=== PATIENT | female | born 1970 | race Caucasian/White ===

== ENCOUNTER → 2020-08-27 09:37 | Outpatient (BNVA) | payer MEDICARE, MEDICAID, SELFPAY | PROVIDERS: PCP Family Medicine; Visit Provider Nurse Practitioner | DX: Z13.89 Encounter for screening for other disorder (principal) | CPT/HCPCS: 99202 ==

== ENCOUNTER → 2020-10-26 09:35 | Outpatient (BNVA) | payer MEDICARE, MEDICAID, SELFPAY | PROVIDERS: PCP Family Medicine; Visit Provider Nurse Practitioner | DX: Z13.89 Encounter for screening for other disorder (principal) | CPT/HCPCS: Q3014 ==

== ENCOUNTER 2020-11-18 11:38 | Outpatient (REF) | payer MEDICARE, MEDICAID, SELFPAY ==
--- NOTE | ~2020-11-18 | MM_ITS ---
EXAMINATION: MM SCREENING DIGITAL BREAST TOMOSYNTHESIS, BILATERAL CLINICAL INFORMATION: Screening. Asymptomatic. The lifetime risk of breast cancer based on the Tyrer-Cuzick Model is 7%. COMPARISON: Mammography: 04/04/2019, outside mammography 01/11/2017, 11/13/2015 ([facility]). TECHNIQUE: Digital breast tomosynthesis is performed in both the craniocaudal and mediolateral oblique views along with computer-aided detection (CAD). Synthesized 2D images are generated from the tomosynthesis. Additional bilateral exaggerated CC views and additional bilateral MLO views are provided. FINDINGS: There are scattered areas of fibroglandular density (ACR BI-RADS breast composition Category b). Breast tissue composition borders on predominantly fatty. Background fibroglandular and stromal densities are stable. There is no interval mass or architectural abnormality or developing density. No abnormal calcifications. The axilla and skin contours are unremarkable. No significant changes. MM/MM tomosynthesis screening BI IMPRESSION: No mammographic evidence of malignancy. ASSESSMENT: BI-RADS 1: Negative RECOMMENDATION: Routine annual mammography screening. This patient's information was entered into a reminder system with a target due date for their next mammogram.
== END 2020-11-18 11:39 | disposition home or self-care (01) ==
LOC: HO.MAMMO 11:38
PROVIDERS: Visit Provider Family Medicine
DX: Z12.31 Encounter for screening mammogram for malignant neoplasm of breast (principal)
CPT/HCPCS: 77063; 77067

== ENCOUNTER → 2021-04-20 10:47 | Outpatient (BNVA) | payer MEDICARE, MEDICAID, SELFPAY | PROVIDERS: PCP Family Medicine; Referring Provider Family Medicine; Visit Provider Nurse Practitioner Family | DX: G47.9 Sleep disorder, unspecified (principal); J35.1 Hypertrophy of tonsils; R06.83 Snoring; R06.00 Dyspnea, unspecified; J30.2 Other seasonal allergic rhinitis; Z79.899 Other long term (current) drug therapy | CPT/HCPCS: Q3014 ==

== ENCOUNTER 2022-06-10 10:56 | Outpatient (REF) | payer MEDICARE, MEDICAID, SELFPAY ==
--- NOTE | 2022-06-10 | PFT_ITS ---
INDICATION: Wheezing. SPIROMETRY: FEV1 to FVC of 87% with an FEV1 of 2.53 L, which is 92% predicted, an FVC of 2.9 L, which is 83% predicted. No significant response to bronchodilators noted. Maximum voluntary ventilation 92% predicted. LUNG VOLUMES: Total lung capacity 85% predicted with a residual volume of 65% predicted, and an expiratory reserve volume of 32% predicted. DIFFUSION CAPACITY: DLCO 82% predicted. COMPARISONS: None. INTERPRETATION: No obstructive nor restrictive ventilatory defects identified. No significant response to bronchodilators noted. Normal maximum voluntary ventilation. No evidence of small airways disease. Lung volumes are low normal but likely secondary to elevated BMI. There is also a decrease in the expiratory reserve volume secondary to an elevated BMI. Diffusion capacity is within normal limits. If asthma is in the differential, methacholine challenge may be helpful in assessing for hyper-reactive airways disease and a diagnosis of asthma. Clinical correlation is warranted. MD KAMRAN Dorsey/VINICIUS / [phone]
== END 2022-06-10 10:57 | disposition home or self-care (01) ==
LOC: HO.RESP 10:56
PROVIDERS: PCP Family Medicine; Visit Provider Family Medicine
DX: R06.2 Wheezing (principal)
CPT/HCPCS: 94060; 94727; 94729

== ENCOUNTER 2022-06-14 11:02 | Outpatient (REF) | payer MEDICARE, MEDICAID, SELFPAY ==
--- NOTE | ~2022-06-14 | MM_ITS ---
EXAMINATION: MM SCREENING DIGITAL BREAST TOMOSYNTHESIS, BILATERAL CLINICAL INFORMATION: Screening. Asymptomatic. The lifetime risk of breast cancer based on the Tyrer-Cuzick Model is 6.8%. COMPARISON: Mammography: November 18, 2020 and studies dating back to May 28, 2014 TECHNIQUE: Digital breast tomosynthesis is performed in both the craniocaudal and mediolateral oblique views along with computer-aided detection (CAD). Synthesized 2D images are generated from the tomosynthesis. FINDINGS: The breasts are almost entirely fatty (ACR BI-RADS breast composition Category a). There are no significant masses, abnormal calcifications, or other abnormalities. MM/MM tomosynthesis screening BI IMPRESSION: No significant changes from prior exam. ASSESSMENT: BI-RADS 1: Negative RECOMMENDATION: Routine annual mammography screening. This patient's information was entered into a reminder system with a target due date for their next mammogram.
== END 2022-06-14 11:03 | disposition home or self-care (01) ==
LOC: HO.MAMMO 11:02
PROVIDERS: PCP Family Medicine; Visit Provider Family Medicine
DX: Z12.31 Encounter for screening mammogram for malignant neoplasm of breast (principal)
CPT/HCPCS: 77063; 77067

== ENCOUNTER 2022-09-29 11:52 | Outpatient (REF) | payer MEDICARE, MEDICAID, SELFPAY ==
[2022-09-29 12:29] LABS: MANUAL DIFF FLAG NO
[2022-09-29 13:32] LABS: Basophils Absolute Auto 0.1 X10*3/uL (0.0-0.2); Eosinophils Absolute Auto 0.2 X10*3/uL (0.0-0.4); Hematocrit 40.9 % (37.0-47.0); Hemoglobin 13.2 g/dl (12.0-16.0); Imm Gran Abs Auto 0.01 X10*3/uL (0.00-0.03); Imm Gran Pct Auto 0.1 % (0.0-0.4); Lymphocytes Absolute Auto 2.5 X10*3/uL (1.2-4.9); Lymphocytes Percent Auto 31.1 % (20-40); Mean Corpuscular HGB Conc 32.3 g/dl (31.0-35.0); Mean Corpuscular Hemoglobin 34.1 pg (27.0-33.0); Mean Corpuscular Volume 105.7 fL (80.0-98.0); Mean Platelet Volume 11.3 fL (9.4-12.3); Monocytes Absolute Auto 0.5 X10*3/uL (0.1-1.2); Monocytes Percent Auto 6.6 % (2-11); Neutrophils Absolute Auto 4.8 x10*3/uL (2.0-8.3); Neutrophils Percent Auto 59.2 % (45-73); Platelet Count 260 X10*3/uL (160-400); Red Blood Count 3.87 X10*6/uL (4.20-5.50); Red Cell Distribution Width 12.9 % (11.0-16.0); White Blood Count 8.2 X10*3/uL (4.8-10.8)
[2022-09-29 13:57] LABS: Alanine Aminotransferase 18 U/L (0-31); Alkaline Phosphatase 77 U/L (39-117); Anion Gap 16 (12-20); Aspartate Amino Transferase 18 U/L (5-31); Bilirubin Total 0.6 mg/dL (0.0-1.0); Blood Urea Nitrogen 12 mg/dL (9-16); Calcium 9.1 mg/dL (8.4-10.2); Carbon Dioxide 21 mmol/L (22-29); Chloride 110 mmol/L (96-108); Estimated Glomerular Filt Rate > 60; Glucose Random 92 mg/dL (60-115); Potassium 4.5 mmol/L (3.3-5.1); Sodium 142 mmol/L (135-145); Total Protein 6.8 g/dL (6.5-8.0)
== END 2022-09-29 11:53 | disposition home or self-care (01) ==
LOC: HO.LAB 11:52
PROVIDERS: PCP Family Medicine; Referring Provider Family Medicine; Visit Provider Nurse Practitioner
DX: Z01.818 Encounter for other preprocedural examination (principal); K91.5 Postcholecystectomy syndrome
CPT/HCPCS: 36415; 80053; 85025; 99212

== ENCOUNTER 2022-11-04 11:13 | Day surgery (SDC) | payer MEDICARE, MEDICAID, SELFPAY ==
[2022-11-02 15:15] VITALS: BMI 65.2
--- NOTE | 2022-11-03 12:23 | P.CONAN_ITS ---
Documented by User: Lissy Curtis NP 11/03/22 12:24 HPI - Anesthesia Eval Consult details Narrative: 52yo F for Colonoscopy PMFSH Active Problems Active Problems: All Active Problems (Updated 09/29/22 @ 12:11 by HAKEEM Bains) Pre-op examination (Acute) Excessive daytime sleepiness (Acute) Sleep disorder (Acute) Nocturia (Acute) Snoring (Acute) Post-cholecystectomy syndrome (Acute) Colon cancer screening (Acute) Past Medical History Medical History Anemia Depression GERD (gastroesophageal reflux disease) History of anxiety History of COVID-19 Hx of bipolar disorder Psoriatic arthritis Family History Family History Mother Bladder cancer Heart problem Rheumatoid arthritis Father Arthritis Surgical History Surgical History Hx of hand surgery Social History Social History Household Members: Children Household Members Other:: daughter Alcohol intake: current Alcohol intake frequency: does not drink Patient Tobacco Use Status: Never used Tobacco Advance Directives: No Advance Directives Information Provided: Yes Current occupational status: disabled Meds Allergies Allergy/AdvReac Type Severity Reaction Status Date / Time SEASONAL ALLERGIES Allergy Intermediate SINUSITIS Uncoded 04/20/21 11:01 Home Medications Medication Instructions Recorded Confirmed Last Taken Type acetaminophen 650 mg 650 mg PO Q12H 08/27/20 11/02/22 Unknown History tablet,extended release (Arthritis Pain Relief (acetaminophen) ER) betamethasone dipropionate 0.05 % 1 appl topical DAILY 08/27/20 11/02/22 Unknown History topical ointment bupropion HCl 150 mg 24 hr tablet, 150 mg PO QAM 08/27/20 11/02/22 Unknown Hist ory extended release celecoxib 200 mg capsule 200 mg PO DAILY 08/27/20 11/02/22 Unknown History cetirizine 10 mg capsule (All Day 10 mg PO DAILY PRN Itching 08/27/20 11/02/22 Unknown History Allergy (cetirizine)) docusate sodium 100 mg capsule 100 mg PO DAILY 08/27/20 11/02/22 Unknown History (Colace) etanercept 50 mg/mL (1 mL) 50 mg subcut QWEEK 08/27/20 11/02/22 Unknown History subcutaneous syringe (Enbrel) ferrous sulfate 325 mg (65 mg 325 mg PO BID 08/27/20 11/02/22 Unknown History iron) tablet fluticasone furoate 50 1 inh inhalation DAILY 08/27/20 11/02/22 Unknown History mcg/actuation blister powder for inhalation folic acid 1 mg tablet 1 mg PO DAILY 08/27/20 11/02/22 Unknown History mecobalamin (vitamin B12) 1,000 1,000 mcg PO DAILY 08/27/20 11/02/22 Unknown History mcg chewable tablet melatonin 5 mg capsule 5 mg PO BEDTIME 08/27/20 11/02/22 Unknown History methotrexate sodium 2.5 mg tablet 17.5 mg PO QWEEK 08/27/20 11/02/22 Unknown History montelukast 10 mg tablet 10 mg PO DAILY 08/27/20 11/02/22 Unknown History nystatin 100,000 unit/gram topical 1 appl topical DAILY 08/27/20 11/02/22 Unknown History cream albuterol sulfate 90 mcg/actuation 2 puff inhalation Q4-6H PRN 10/06/20 11/02/22 Unknown History aerosol inhaler (Ventolin HFA) Shortness Of Breath oxybutynin chloride 15 mg 15 mg PO DAILY 09/29/22 Unknown History tablet,extended release 24 hr oxybutynin chloride 5 mg tablet 15 mg PO DAILY 09/29/22 11/02/22 Unknown History topiramate 50 mg capsule 100 mg PO DAILY 09/29/22 11/02/22 Unknown History sprinkle,extended release 24 hr venlafaxine 100 mg tablet 100 mg PO BID 09/29/22 11/02/22 Unknown History Exam Exam Date and Time: November 03, 2022 1223 Height,Weight and Vital Signs: Height 5 ft 4 in Weight 172.365 kg Pertinent Lab Results Pertinent Lab Results: Laboratory Tests 09/29/22 09/29/22 12:28 12:28 WBC 8.2 Hgb 13.2 Hct 40.9 Plt Count 260 Sodium 142 Potassium 4.5 Chloride 110 H Carbon Dioxide 21 L BUN 12 Creatinine 0.79 Assessment and Plan Assessment Anesthesia Assessment: Chart Reviewed Documented by User: Jaclyn Webber MD 11/04/22 12:59 PMFSH Past Medical History Medical History Anemia Depression GERD (gastroesophageal reflux disease) History of anxiety History of COVID-19 Hx of bipolar disorder Psoriatic arthritis Family History Family History Mother Bladder cancer Heart problem Rheumatoid arthritis Father Arthritis Family history of problems with anesthesia: No Surgical History Surgical History Hx of hand surgery History of Problems with Anesthesia: No Social History Social History Household Members: Children Household Members Other:: daughter Alcohol intake: current Alcohol intake frequency: does not drink Patient Tobacco Use Status: Never used Tobacco Advance Directives: No Advance Directives Information Provided: Yes Current occupational status: disabled Meds Allergies Allergy/AdvReac Type Severity Reaction Status Date / Time SEASONAL ALLERGIES Allergy Intermediate SINUSITIS Uncoded 04/20/21 11:01 Home Medications Medication Instructions Recorded Confirmed Last Taken Type acetaminophen 650 mg 650 mg PO Q12H 08/27/20 11/02/22 Unknown History tablet,extended release (Arthritis Pain Relief (acetaminophen) ER) betamethasone dipropionate 0.05 % 1 appl topical DAILY 08/27/20 11/02/22 Unknown History topical ointment bupropion HCl 150 mg 24 hr tablet, 150 mg PO QAM 08/27/20 11/02/22 Unknown History extended release celecoxib 200 mg capsule 200 mg PO DAILY 08/27/20 11/02/22 Unknown History cetirizine 10 mg capsule (All Day 10 mg PO DAILY PRN Itching 08/27/20 11/02/22 Unknown History Allergy (cetirizine)) docusate sodium 100 mg capsule 100 mg PO DAILY 08/27/20 11/02/22 Unknown History (Colace) etanercept 50 mg/mL (1 mL) 50 mg subcut QWEEK 08/27/20 11/02/22 Unknown History subcutaneous syringe (Enbrel) ferrous sulfate 325 mg (65 mg 325 mg PO BID 08/27/20 11/02/22 Unknown History iron) tablet fluticasone furoate 50 1 inh inhalation DAILY 08/27/20 11/02/22 Unknown History mcg/actuation blister powder for inhalation folic acid 1 mg tablet 1 mg PO DAILY 08/27/20 11/02/22 Unknown History mecobalamin (vitamin B12) 1,000 1,000 mcg PO DAILY 08/27/20 11/02/22 Unknown History mcg chewable tablet melatonin 5 mg capsule 5 mg PO BEDTIME 08/27/20 11/02/22 Unknown History methotrexate sodium 2.5 mg tablet 17.5 mg PO QWEEK 08/27/20 11/02/22 Unknown History montelukast 10 mg tablet 10 mg PO DAILY 08/27/20 11/02/22 Unknown History nystatin 100,000 unit/gram topical 1 appl topical DAILY 08/27/20 11/02/22 Unknown History cream albuterol sulfate 90 mcg/actuation 2 puff inhalation Q4-6H PRN 10/06/20 11/02/22 Unknown History aerosol inhaler (Ventolin HFA) Shortness Of Breath oxybutynin chloride 15 mg 15 mg PO DAILY 09/29/22 Unknown History tablet,extended release 24 hr oxybutynin chloride 5 mg tablet 15 mg PO DAILY 09/29/22 11/02/22 Unknown History topiramate 50 mg capsule 100 mg PO DAILY 09/29/22 11/02/22 Unknown History sprinkle,extended release 24 hr venlafaxine 100 mg tablet 100 mg PO BID 09/29/22 11/02/22 Unknown History Exam Airway Mallampati Class: II TM Dist: >3cm Neck ROM: Full Heart: rrr Lungs: cta Assessment and Plan Assessment Anesthesia Assessment: Anesthesia Plan Discussed Final Anesthetic Review Family History of Problems with Anesthesia: No History of Problems with Anesthesia: No NPO: Yes ASA Class: III Final Preanesthetic Review: No Changes in Pt Med Stat, Meds/Allgs Chart Reviewed and Consent Obtained/Reviewed Patient Risk: Intermediate Procedure Risk: Intermediate Anesthetic Plan Anesthetic Plan: MAC: Disposition: Standard PACU
[2022-11-04 11:55] VITALS: BP 111/68; PULSE 81; RESP 20; TEMP 36.6; O2SAT 97
--- NOTE | 2022-11-04 12:15 | P.HPSUR_ITS ---
Pre-Procedural Eval Section A Date of Service: 11/04/22 The patient is an INPATIENT: No The History & Physical has been completed within 30 days and I have reviewed it.: No Section B Chief Complaint: screening Relevant Social History: None Present Medications: see Short Stay Collaborative assessment Medical History: Significant History (Anemia Depression GERD (gastroesophageal r eflux disease) History of anxiety History of COVID-19 Hx of bipolar disorder Psoriatic arthritis) History of Previous Operations: Relevant previous surgery/procedure and date(s) (History of hand surgery) Allergies: Allergies Allergy/AdvReac Type Severity Reaction Status Date / Time SEASONAL ALLERGIES Allergy Intermediate SINUSITIS Uncoded 04/20/21 11:01 Review of Systems Sugical H&P ROS: Negative: Constitution, Cardiovascular, Respiratory and Gastrointestinal Exam Surgical H&P Exam: Normal: Heart, Normal: Lungs, Normal: Extremities and Normal: Abdomen Plan Diagnosis/Plan: Unchanged I have reviewed the history and physical and performed a pertinent physical examination on my patient. No changes have occurred unless specified. Time Spent With Patient Time: Total time managing care of this patient today ____ minutes.
--- NOTE | 2022-11-04 13:32 | W.PM.OPN ---
Operative Note Operative Note Date of Service: 11/04/22 Narrative: COLONOSCOPY TILL CECUM WITH BIOPSIES Pre-op diagnosis: Colon cancer screening Post-op diagnosis:? Colon polyps, diverticulosis, hemorrhoids Endoscopist:? Oxana Aguiar MD Anesthesia:?MAC Consent: Indications for the procedure and potential complications of bleeding, perforation, reaction to medications and missed diagnosis were discussed with the patient and informed consent was obtained. Instrument: Olympus PCF H 190 L variable stiffness pediatric colonoscope Monitoring: Vital signs and clinical assessment, intermittent blood pressure monitoring, continuous EKG monitoring, Pulse oximetry and Carbon Dioxide monitoring were done throughout the procedure. Please see anesthesia flowsheet. Colon withdrawl time was 27 minutes. Procedure: The patient was placed in the left lateral decubitis position and pre-procedure medications were administered. After a digital rectal examination of the ano-rectum, the video colonoscope was inserted into the rectum and advanced through the colon to the ICV. It was not possible to advance further due to looping of the colonoscope and sub-optimal prep. The colonoscope was slowly withdrawn in a retrograde panoramic fashion and the colon mucosa was carefully examined including a retroflexed view of the rectum. Findings and interventions are described below. Procedure Difficulty: Colon was long and tortuous and there was recurrent loop formation. LLQ pressure applied to intubate the cecum without success Findings: Terminal Ileum: Not evaluated Cecum: Normal Ascending Colon: A 5-6 mm sessile polyp in the proximal AC - removed with a cold bx Transverse Colon: Normal Descending Colon: A 5-6 mm sessile polyp - removed with a cold bx Sigmoid Colon: Moderate diverticulosis Rectum: Normal Ano-rectum: Moderate internal hemorrhoids Colon preparation: Fair despite copious irrigation and poor in the left colon due to semi-solid stools and undigested vegetable matter which could not be suctioned Impression and Post Procedure Diagnosis: Colonoscopy Findings: Two small polyps removed Moderate diverticulosis seen in the sigmoid colon Moderate hemorrhoids on retroflexed exam. Fair despite copious irrigation and poor in the left colon due to semi-solid stools and undigested vegetable matter which could not be suctioned Plan: Await pathology results Patient has an appointment on 11/18/22 in the [facility] with Melanie Schofield NP. Repeat Colonoscopy interval based on path results - in 1-2 years if polyps are adenomatous and due to fair prep (Dulcolax 2 tablets daily starting 3 days before colonoscopy and adult colonoscope for future colonoscopies). Above findings were reviewed with the patient and colon polyps and diverticulosis handouts were given in the discharge area
[2022-11-04 14:30] VITALS: BP 149/94; PULSE 94; RESP 16; TEMP 37; O2SAT 97
[2022-11-04 14:45] VITALS: BP 141/72; PULSE 82; RESP 18; TEMP 36.9; O2SAT 100
== END 2022-11-04 15:30 | disposition home or self-care (01) ==
PROVIDERS: PCP Family Medicine; Visit Provider Internal Medicine Gastroenterology
PROC: 0DJD8ZZ Inspection of Lower Intestinal Tract, Via Natural or Artificial Opening Endoscopic (ICD-10-PCS; CPT 45378; principal; 2022-11-04 13:00)
DX: Z12.11 Encounter for screening for malignant neoplasm of colon (principal); D12.2 Benign neoplasm of ascending colon; D12.4 Benign neoplasm of descending colon; K57.30 Diverticulosis of large intestine without perforation or abscess without bleeding; K56.2 Volvulus; K64.8 Other hemorrhoids; K91.5 Postcholecystectomy syndrome
CPT/HCPCS: 45380; 88305

== ENCOUNTER → 2022-11-18 10:14 | Outpatient (BNVA) | payer MEDICARE, MEDICAID, SELFPAY | PROVIDERS: PCP Family Medicine; Referring Provider Family Medicine; Visit Provider Nurse Practitioner | DX: Z12.11 Encounter for screening for malignant neoplasm of colon (principal); K91.5 Postcholecystectomy syndrome; D75.89 Other specified diseases of blood and blood-forming organs; D12.6 Benign neoplasm of colon, unspecified | CPT/HCPCS: 99212 ==

== ENCOUNTER 2023-05-23 10:32 | Outpatient (AMB) | payer MEDICARE, MEDICAID, SELFPAY ==
--- NOTE | 2023-05-23 10:39 | MHC.OFFVIS ---
Intake Vital Signs 05/23/23 10:44 Height 5 ft 4 in Weight 374 lb 12.573 oz BMI 64.3 BP 143/82 H Blood Pressure Location Rt brachial Position Sitting Pulse 91 Intake Visit Reasons: 6 mnth follow up Intake Note: Patient presents to in office visit today in 6 months follow up of GERD. CC: Patient reports waking up hoarse every day for the past two weeks and having to clear up her throat often. 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 She is agreeable to repeating the procedure in 2 years. The results were explained and the patient is agreeable to the follow-up interval as stated. The bowel pattern has returned to normal. Education was provided to tell any 1st degree relatives about their findings to be sure that they are screened by age 45. Educated that they will be put on a recall list when it is time for their repeat scope but should they move out of state or away from the hospital they will need to remember along with their primary to repeat the procedure in a timely fashion to avoid any adverse complications. She did not clear for the procedure, she says she did not do the prep correctly and SHE DID NOT STOP HER CHOLESTYRAMINE, so we will stop this 4 days prior to the next procedure. She continues to do well on her cholestyramine qd - she only uses more if she is going to eat out. she is quite happy with this. She is better able to manage her daily life and be more active and even lost 6 lbs! Her macrocytosis is likely related to her methotrexate since in the past she has had repeatedly High vitamin B12 levels and does not drink alcohol. This is being followed by her primary care provider. ROV 6 mos. (2) Post-cholecystectomy syndrome: Code(s): K91.5 - Postcholecystectomy syndrome (3) Macrocytosis: Comment: Likely related to methotrexate as she has had repeatedly High B12 levels Code(s): D75.89 - Other specified diseases of blood and blood-forming organs (4) Tubular adenoma of colon: Comment: 2022 scope= 2 TA is repeat in 2 years Code(s): D12.6 - Benign neoplasm of colon, unspecified Medications: Refilled omeprazole 20 mg PO BID 60 c aps 6RF cholestyramine ( sugar) 4 gram 4 grams PO BID 37 8 grams 6RF K91.5 - Postcholec ystectomy syndrome Discontinued bisacodyl Disco ntinued Reason: D octor's Order 10 mg (2 x 5 mg) P O BEDTIME 4 tabs 0 RF Z12.11 - Encounter for screening for malignant neoplas m of colon TODAYS VISIT She is doing well on her cholestyramine, but had some diarrhea just this week (but this is Thanksgiving week so diet could be to blame). She is on o2o 20 mg twice a day and is not experiencing subjective GERD. She questions if she needs to change the PPI because she has been on omeprazole for quite some time. She is on 20 mg twice a day currently. I think will give her a trial of Carafate as her sister had a similar problem a did well Mylanta. We want to avoid Mylanta because of the possible diarrheal side effect so Carafate is a better choice. If this helps then will think that it is silent GERD irritating laryngeal tissues. If it does not help then she may need to pull or different cause such as chronic sinusitis etc.. She says she is having more trouble with allergies and sinuses this year for some reason. She is not having any fevers chills out right sore throat ear pain or trouble swallowing. ROV in June [facility] Medical History (Updated 05/23/23 @ 11:11 by HAKEEM Bains) History of COVID-19 History of anxiety Hx of bipolar disorder Depression Anemia GERD (gastroesophageal reflux disease) Psoriatic arthritis Surgical History Hx of hand surgery Family History Mother Bladder cancer Heart problem Rheumatoid arthritis Father Arthritis Social History Household Members: Children Household Members Other:: daughter Alcohol intake: current Alcohol intake frequency: does not drink Patient Tobacco Use Status: Never used Tobacco Current occupational status: disabled Review of Systems Const Denies fatigue, Denies fever(s), Denies night sweats, Denies poor appetite and Denies weight loss ENT Reports Normal hearing present, Denies dental pain, Denies dysphagia, Denies hearing loss, Denies mouth pain, Reports odynophagia, Denies throat swelling, Denies tongue swelling and Reports other (Dentition adequate) Card Reports no additional complaints Resp Reports no additional complaints GI Denies abdominal pain, Denies melena, Denies bloating, Denies hematochezia, Denies constipation, Denies GI cramping, Denies dysphagia, Denies excessive flatus, Denies early satiety, Reports heartburn, Reports diarrhea, Denies nausea, Reports odynophagia, Denies vomiting and Denies hematemesis Skin/Breast Denies pruritus, Denies lesions, Denies rash and Denies jaundice Neuro Reports Normal hearing present and Denies Abnormal speech present Endo Denies fatigue Aller/Immun Denies throat swelling and Denies tongue swelling Physical Exam Vital Signs: Last Vital Signs Pulse 91 05/23/23 10:44 BP 143/82 H 05/23/23 10:44 BMI result Body Mass Index 64.3 Const General: cooperative, no acute distress, well developed and well groomed Nutritional Appearance: well nourished and obese Orientation/consciousness: oriented to person, oriented to place and oriented to time Limitations: No language barrier HEENT Head: Yes normocephalic and Yes atraumatic Eyes General: appearance normal, both eyes and all related structures Pupils: Equal, round and reactive pupils present Neck Neck: Yes normal visual inspection and Yes no lymphadenopathy Thyroid: Thyroid normal Resp Effort & Inspection: normal respiratory effort and able to speak in complete sentences Auscultation: clear to auscultation bilaterally Cardio Rate: regular rate Rhythm: regular rhythm Heart sounds: Normal, physiologic split S2 sound present Peripheral pulses: radial pulses present and posterior tibial pulses present GI Inspection: No distended, Yes Abdominal panniculus present and Yes obesity Palpation (GI): Soft to palpation, nontender, no guarding, not rigid and No hepatosplenomegaly present Percussion: Yes normal to percussion Auscultation: normal bowel sounds Rectal Exam - Female: deferred Skin General skin exam: no rashes or lesions noted, turgor normal, skin not dry, no jaundice, No spider nevi and no striae Rashes: no rashes Nails: normal Neuro General: oriented to person, oriented to place and oriented to time Cranial nerves: Yes Equal, round and reactive pupils present and Yes Normal hearing present Speech: No Abnormal speech present Extrem General: Yes normal to inspection, No clubbing, No cyanosis and No edema Psych Appearance: grossly normal and well kempt Mental Status: mental status grossly normal Speech and movement: Normal speech and movement present Affect: normal affect Attitude: cooperative Thought process: Normal thought process present and not confabulating Thought content: Normal thought content present Insight: Fair insight present (Psych) Judgement: Fair judgement present (Psych) Assessment & Plan Assessment & Plan (1) Post-cholecystectomy syndrome: Code(s): K91.5 - Postcholecystectomy syndrome (2) Tubular adenoma of colon: Comment: 2022 scope= 2 TA is repeat in 2 years NEEDS TO STOP CHOLESTYRAMINE BEFORE NEXT PROCEDURE Code(s): D12.6 - Benign neoplasm of colon, unspecified (3) GERD (gastroesophageal reflux disease): Code(s): K21.9 - Gastro-esophageal reflux disease without esophagitis Plan She is doing well on her cholestyramine, but had some diarrhea just this week (but this is Thanksgiving week so diet could be to blame). She is on o2o 20 mg twice a day and is not experiencing subjective GERD. She questions if she needs to change the PPI because she has been on omeprazole for quite some time. She is on 20 mg twice a day currently. I think will give her a trial of Carafate as her sister had a similar problem a did well Mylanta. We want to avoid Mylanta because of the possible diarrheal side effect so Carafate is a better choice. If this helps then will think that it is silent GERD irritating laryngeal tissues. If it does not help then she may need to pull or different cause such as chronic sinusitis etc.. She says she is having more trouble with allergies and sinuses this year for some reason. She is not having any fevers chills out right sore throat ear pain or trouble swallowing. ROV in June Medications: New sucralfate (Carafate) 10 mL PO DAILY 400 mL 1RF J39.2 - Other diseases of pharynx, K21.9 - Gastro-esophageal reflux disease without esophagitis sucralfate (Carafate) 10 mL PO DAILY 400 mL 1RF J39.2 - Other diseases of pharynx, K21.9 - Gastro-esophageal reflux disease without esophagitis Changed From cholestyramine (with sugar) 4 gram 4 grams PO BID 378 grams 6RF K91.5 - Postcholecystectomy syndrome To cholestyramine (with sugar) 4 gram 4 grams PO BID 378 grams 6RF K91.5 - Postcholecystectomy syndrome Refilled omeprazole 20 mg PO BID 60 caps 6RF Coding Level of Care Code Est Pt Level 3 (93238) Diagnoses Post-cholecystectomy syndrome K91.5 Tubular adenoma of colon D12.6 GERD (gastroesophageal reflux disease) K21.9
[2023-05-23 10:44] VITALS: BP 143/82; PULSE 91; BMI 64.3
== END 2023-05-23 11:41 | disposition home or self-care (01) ==
PROVIDERS: Visit Provider Nurse Practitioner
DX: K91.5 Postcholecystectomy syndrome (principal); D12.6 Benign neoplasm of colon, unspecified; K21.9 Gastro-esophageal reflux disease without esophagitis
CPT/HCPCS: 99213

== ENCOUNTER → 2023-05-23 10:32 | Outpatient (BNVA) | payer MEDICARE, SELFPAY | PROVIDERS: Visit Provider Nurse Practitioner | DX: K21.9 Gastro-esophageal reflux disease without esophagitis (principal); K91.5 Postcholecystectomy syndrome; D12.6 Benign neoplasm of colon, unspecified | CPT/HCPCS: 99212 ==

== ENCOUNTER 2023-12-12 12:01 | Outpatient (REF) | payer MEDICARE, MEDICAID, SELFPAY | END 2023-12-12 12:02 | disposition home or self-care (01) | LOC: HO.MAMMO 12:01 | PROVIDERS: PCP Family Medicine; Visit Provider Family Medicine | DX: Z12.31 Encounter for screening mammogram for malignant neoplasm of breast (principal) | CPT/HCPCS: 77063; 77067 ==

== ENCOUNTER → 2023-12-12 12:15 | Outpatient (BNV) | payer MEDICARE, MEDICAID, SELFPAY | PROVIDERS: PCP Family Medicine; Visit Provider Radiology Diagnostic Radiology | DX: Z12.31 Encounter for screening mammogram for malignant neoplasm of breast (principal) | CPT/HCPCS: 77063; 77067 ==

== ENCOUNTER 2023-12-26 11:21 | Outpatient (AMB) | payer MEDICARE, MEDICAID, SELFPAY ==
[2023-12-26 11:33] VITALS: BP 143/69; PULSE 70; BMI 65.2
--- NOTE | 2023-12-26 11:33 | MHC.OFFVIS ---
Vital Signs 12/26/23 11:33 Height 5 ft 4 in Weight 379 lb 10.176 oz BMI 65.2 BP 143/69 H Blood Pressure Location Rt brachial Position Sitting Pulse 70 Intake Visit Reasons: follow up r/s from June Intake Note: Corine presents to in office follow up of GERD. CC: Patient reports doing well today and denies having any new GI concerns. Director Of Category Management Required: No Accompanied by: Self / Same As Patient Allergies No Known Drug Allergies Allergy (Unknown, Verified 12/26/23 11:39) none SEASONAL ALLERGIES Allergy (Intermediate, Uncoded 04/20/21 11:01) SINUSITIS HPI HPI follow up r/s from June: Details: Assessment & Plan (1) Post-cholecystectomy syndrome: Code(s): K91.5 - Postcholecystectomy syndrome (2) Tubular adenoma of colon: Comment: 2022 scope= 2 TA is repeat in 2 years NEEDS TO STOP CHOLESTYRAMINE BEFORE NEXT PROCEDURE Code(s): D12.6 - Benign neoplasm of colon, unspecified (3) GERD (gastroesophageal reflux disease): Code(s): K21.9 - Gastro-esophageal reflux disease without esophagitis Plan She is doing well on her cholestyramine, but had some diarrhea just this week (but this is Thanksgiving week so diet could be to blame). She is on o2o 20 mg twice a day and is not experiencing subjective GERD. She questions if she needs to change the PPI because she has been on omeprazole for quite some time. She is on 20 mg twice a day currently. I think will give her a trial of Carafate as her sister had a similar problem a did well Mylanta. We want to avoid Mylanta because of the possible diarrheal side effect so Carafate is a better choice. If this helps then will think that it is silent GERD irritating laryngeal tissues. If it does not help then she may need to pull or different cause such as chronic sinusitis etc.. She says she is having more trouble with allergies and sinuses this year for some reason. She is not having any fevers chills out right sore throat ear pain or trouble swallowing. ROV in June Medications: New sucralfate (Carafate) 10 mL PO DAILY 400 mL 1RF J39.2 - Other diseases of pharynx, K21.9 - Gastro-esophageal reflux disease without esophagitis sucralfate (Carafate) 10 mL PO DAILY 400 mL 1RF J39.2 - Other diseases of pharynx, K21.9 - Gastro-esophageal reflux disease without esophagitis Changed From cholestyramine (with sugar) 4 gram 4 grams PO BID 378 grams 6RF K91.5 - Postcholecystectomy syndrome To cholestyramine (with sugar) 4 gram 4 grams PO BID 378 grams 6RF K91.5 - Postcholecystectomy syndrome Refilled omeprazole 20 mg PO BID 60 caps 6RF . TODAY'S VISIT She never changed to the carafate, she continues on the cholestyramine and is doing quite well now. She also continues on her omeprazole. She has prn miralax and colace r/t her oral iron therapy which she only needs very occasionally. She has diarrhea with her dtrs tacos - she does not drain the grease from the ground beef. ROV 6 mos. PFSH Medical History History of COVID-19 History of anxiety Hx of bipolar disorder Depression Anemia GERD (gastroesophageal reflux disease) Psoriatic arthritis Surgical History Hx of hand surgery Family History Mother Bladder cancer Heart problem Rheumatoid arthritis Father Arthritis Social History Household Members: Children Household Members Other:: daughter Alcohol intake: current Alcohol intake frequency: does not drink Patient Tobacco Use Status: Never used Tobacco Current occupational status: disabled Review of Systems Const Denies fatigue, Denies fever(s), Denies night sweats, Denies poor appetite and Denies weight loss ENT Reports Normal hearing present, Denies dental pain, Denies dysphagia, Denies hearing loss, Denies mouth pain, Denies odynophagia, Denies throat swelling, Denies tongue swelling and Reports other (Dentition adequate) Card Reports no additional complaints Resp Reports no additional complaints GI Details: Denies abdominal pain, Denies melena, Denies bloating, Denies hematochezia, Denies constipation, Denies GI cramping, Denies dysphagia, Denies excessive flatus, Denies early satiety, Reports heartburn, Reports diarrhea, Denies nausea, Denies odynophagia, Denies vomiting and Denies hematemesis Skin/Breast Denies pruritus, Denies lesions, Denies rash and Denies jaundice Neuro Reports Normal hearing present and Denies Abnormal speech present Endo Denies fatigue Aller/Immun Denies throat swelling and Denies tongue swelling Physical Exam Vital Signs: Last Vital Signs Pulse 70 12/26/23 11:33 BP 143/69 H 12/26/23 11:33 BMI result Body Mass Index 65.2 Const General: cooperative, no acute distress, well developed and well groomed Nutritional Appearance: well nourished and obese morbidly obese Orientation/consciousness: oriented to person, oriented to place and oriented to time Limitations: No language barrier HEENT Head: Yes normocephalic and Yes atraumatic Eyes General: appearance normal, both eyes and all related structures Pupils: Equal, round and reactive pupils present Neck Neck: Yes normal visual inspection and Yes no lymphadenopathy Thyroid: Thyroid normal Resp Effort & Inspection: normal respiratory effort and able to speak in complete sentences Auscultation: clear to auscultation bilaterally Cardio Rate: regular rate Rhythm: regular rhythm Heart sounds: Normal, physiologic split S2 sound present Peripheral pulses: radial pulses present and posterior tibial pulses present GI Inspection: No distended, Yes Abdominal panniculus present and Yes obesity Palpation (GI): Soft to palpation, nontender, no guarding, not rigid and No hepatosplenomegaly present Percussion: Yes normal to percussion Auscultation: normal bowel sounds Rectal Exam - Female: deferred Skin General skin exam: no rashes or lesions noted, turgor normal, skin not dry, no jaundice, No spider nevi and no striae Rashes: no rashes Nails: normal Neuro General: oriented to person, oriented to place and oriented to time Cranial nerves: Yes Equal, round and reactive pupils present and Yes Normal hearing present Speech: No Abnormal speech present Extrem General: Yes normal to inspection, No clubbing, No cyanosis and No edema Psych Appearance: grossly normal and well kempt Mental Status: mental status grossly normal Speech and movement: Normal speech and movement present Affect: normal affect Attitude: cooperative Thought process: Normal thought process present and not confabulating Thought content: Normal thought content present Insight: Fair insight present (Psych) Judgement: Fair judgement present (Psych) Assessment & Plan Assessment & Plan (1) GERD (gastroesophageal reflux disease): Code(s): K21.9 - Gastro-esophageal reflux disease without esophagitis Category: Medical (2) Post-cholecystectomy syndrome: Code(s): K91.5 - Postcholecystectomy syndrome Category: Medical Plan She never changed to the carafate, she continues on the cholestyramine and is doing quite well now. She also continues on her omeprazole. She has prn miralax and colace r/t her oral iron therapy which she only needs very occasionally. She has diarrhea with her dtrs tacos - she does not drain the grease from the ground beef. ROV 6 mos. Medications: Refilled cholestyramine (with sugar) 4 gram 4 grams PO BID 378 grams 6RF K91.5 - Postcholecystectomy syndrome omeprazole 20 mg PO BID 60 caps 6RF Discontinued sucralfate (Carafate) Discontinued Reason: Doctor's Order 10 mL PO DAILY 400 mL 1RF J39.2 - Other diseases of pharynx, K21.9 - Gastro-esophageal reflux disease without esophagitis Coding Level of Care Code Est Pt Level 3 (95093) Diagnoses GERD (gastroesophageal reflux disease) K21.9 Post-cholecystectomy syndrome K91.5
== END 2023-12-26 12:07 | disposition home or self-care (01) ==
PROVIDERS: PCP Family Medicine; Visit Provider Nurse Practitioner
DX: K21.9 Gastro-esophageal reflux disease without esophagitis (principal); K91.5 Postcholecystectomy syndrome
CPT/HCPCS: 99213

== ENCOUNTER → 2023-12-26 11:21 | Outpatient (BNVA) | payer MEDICARE, MEDICAID, SELFPAY | PROVIDERS: PCP Family Medicine; Visit Provider Nurse Practitioner | DX: K91.5 Postcholecystectomy syndrome (principal); K21.9 Gastro-esophageal reflux disease without esophagitis; D12.6 Benign neoplasm of colon, unspecified | CPT/HCPCS: 99212 ==

== ENCOUNTER 2024-09-11 18:26 | Outpatient (REF) | payer MEDICARE, MEDICAID, SELFPAY ==
[2024-09-18 14:08] LABS: HPV Genotype 16 Positive (Negative); HPV Genotype 18 Negative (Negative); HPV High Risk Negative (Negative)
== END 2024-09-11 18:27 | disposition home or self-care (01) ==
LOC: HO.HHCLNP 18:26
PROVIDERS: Visit Provider Advanced Practice Midwife
DX: R87.810 Cervical high risk human papillomavirus (HPV) DNA test positive (principal); R87.610 Atypical squamous cells of undetermined significance on cytologic smear of cervix (ASC-US)
CPT/HCPCS: 87626; 88175

== ENCOUNTER 2024-09-25 11:37 | Outpatient (REF) | payer MEDICARE, MEDICAID, SELFPAY ==
[2024-09-25 13:39] LABS: Estimated Average Glucose 111 mg/dL; Hemoglobin A1C 136.0919 umol/L; Hemoglobin A1c % 5.5 % (<6.0); Total Hemoglobin (HGBA1C) 3743.0678 umol/L
--- OUTSIDE RECORDS SUMMARY | 2024-09-25 14:13 | XMS_ITS | Clinical Summary ---
Author Organization [employer] Address [address] [facility] 7t [place] [address] Care Team Providers Care Us Customs And Border Officer Name Role Phone Britt Hunter MD Primary Care Provider [phone] Allergies Active Allergy Reactions Criticality Noted Date [...] at bedtime. 6 mL 1 023 Active fluticasone furoate (Arnuity Ellipta) 100 MCG/ACT inhaler Inhale 1 puff Once per day. Rinse mouth with water after use to reduce aftertaste and incidence of candidiasis. Do not swallow. 1 each 024 2024 Active montelukast (Singulair) 10 MG [...] at bedtime. 90 capsule 3 025 Active celecoxib (CeleBREX) 200 MG capsuleIndicati ons:Psoriatic arthritis (CMS/HCC) TAKE 1 CAPSULE BY MOUTH EVERY DAY NEEDED 30 capsule 1 025 Active Magnesium Oxide -Mg Supplement 400 MG capsule take 1 capsule by mouth every day at bedtime 025 Active D3 Super Strength 50 MCG (2000 UT) capsule TAKE 1 CAPSULE BY MOUTH EVERY DAY 90 capsule 3 025 Active cetirizine (ZyrTEC) 10 MG tabletIndicatio ns:Allergic rhinitis, unspecified seasonality, unspecified trigger TAKE 1 TABLET BY MOUTH ONCE DAILY NEEDED 90 tablet 3 025 Active docusate sodium (Colace) 100 MG capsuleIndicati ons:Constipatio n, unspecified constipation type TAKE 1 CAPSULE BY MOUTH TWICE DAILY 180 capsule 3 025 Active Ferrous Sulfate (iron) 325 (65 Fe) MG tabletIndicatio ns:Anemia, unspecified type Take 1 tablet (325 mg) by mouth every other day. 90 tablet 3 Active phentermine 15 MG capsule Take 1 capsule (15 mg) by mouth before breakfast. 30 capsule 025 2024 Active docusate sodium (Colace) 100 MG capsuleIndicati ons:Constipatio n, unspecified constipation type TAKE 1 CAPSULE BY MOUTH TWICE DAILY 180 capsule 1 024 2024 Discontinued FeroSul 325 (65 Fe) MG tabletIndicatio ns:Anemia, unspecified type TAKE 1 TABLET BY MOUTH TWICE DAILY 180 tablet 3 024 2024 Discontinued phentermine 15 MG capsule Take 1 capsule (15 mg) by mouth before breakfast. 30 capsule 025 2024 Discontinued(R eorder (will not trigger notification to Pharmacy)) Active Problems Problem Noted Date Diagnosed Date [...] (08/16/2024 4:00 PM EST): - following with [facility] -symptoms have improved -anticipating Colonoscopy in [...] EST): -Followed by Dr. Saldana at [facility] -Periodic lab per specialist -Continue Enbrel, Methotrexate, and folic acid. -Previously taking Ibuprofen 800mg TID. -Currently on ALVARADO-2 / Celebrex, -She was advised to stop Ibuprofen david she is taking Celebrex, and reviewed its side effect and judicious use -Take Tylenol for pain. Assessment & Plan (06/11/2023 12:23 PM EST): -Followed by Dr. Saldana at [facility] -Periodic lab per specialist -Continue Enbrel, Methotrexate, and folic acid. -Previously taking Ibuprofen 800mg TID. -Currently on ALVARADO-2 / Celebrex, -She was advised to stop Ibuprofen david she is taking Celebrex, and reviewed its side effect and judicious use -Take Tylenol for pain. Assessment & Plan (03/03/2023 2:30 PM EDT): -Followed by Dr. Saldana at [facility], last seen in December 2022, ESR 20 -Periodic lab per specialist -Continue Enbrel, Methotrexate, and folic acid. -Previously taking Ibuprofen 800mg TID. -Currently on ALVARADO-2 / Celebrex, -She was advised to stop Ibuprofen david she is taking Celebrex, and reviewed its side effect and judicious use -Take Tylenol for pain. Assessment & Plan (10/05/2022 6:27 AM EDT): -Followed by Dr. Saldana at [facility] -Periodic lab per specialist -Continue Enbrel, Methotrexate, [...] (08/16/2024 4:01 PM EST): - following with [facility], last seen in December 2023 - continue omeprazole 20 mg bid - previously prescribed sucralfate 10 mg daily, but no longer taking Assessment & Plan (06/11/2023 12:21 PM EST): - following with [facility], last seen in Apr 2023 - [...] with negative high-risk HPV by her previous PHOTOSTAT OPERATOR HELPER Encounters Date Type Department Care Team Description 09/19/2024 Telephone [facility] MEDICINE [address] [place] [phone] Mo Rivers CNM Results 09/19/2024 Orders Only [address] [address] Mo Rivers CNM ASCUS with positive high risk HPV cervical (Primary Dx) 09/11/2024 10:30 AM EDT Procedure Visit [address] [address] Mo Rivers CNM Cervical high risk human papillomavirus (HPV) DNA test positive (Primary Dx); Family history of breast cancer 09/11/2024 Travel 09/06/2024 Refill [facility] [address] [place], [place] [phone] Britt Hunter MD 09/05/[address] [address] Estella Gresham, buffing wheel operator Dosing 09/02/2024 Refill [facility] MEDICINE [address] [place] [phone] Britt Hunter MD Constipation, unspecified constipation type; Anemia, unspecified type 08/22/[address] [address] Britt Hunter MD Allergic rhinitis, unspecified seasonality, unspecified trigger 08/19/2024 2:30 PM EST Office Visit [facility] OPTOMETRY [address] [place] [address] Rodney, Tiny, OD Choroidal nevus, right eye (Primary Dx); Presbyopia 08/19/2024 Travel 08/15/2024 Telephone [facility] MEDICINE [address] [place] [address] Gifty Heath [place] Abnormal Pap Smear 08/15/2024 Refill [facility] [address] [place], [place] [phone] Britt Hunter MD Psoriatic arthritis ([facility]) 08/13/2024 10:45 AM EST Office Visit [facility] MEDICINE [address] [place] [phone] Britt Hunter MD Screening for diabetes mellitus (Primary Dx); Encounter for immunization; Screening for lipid disorders; Elevated BP without diagnosis of hypertension; Postcholecystectomy syndrome; Moderate persistent asthma without complication; Chronic nonintractable headache, unspecified headache type; Gastroesophageal reflux disease, unspecified whether esophagitis present; Neurogenic bladder; Mixed stress and urge urinary incontinence; Psoriatic arthritis ([facility]); Vitamin D deficiency; Class 3 severe obesity due to excess calories with serious comorbidity and body mass index (BMI) of 60.0 to 69.9 in adult ([facility]); Impaired fasting glucose; Bipolar II disorder ([facility]); Iron deficiency anemia, unspecified iron deficiency anemia type; Nutritional anemia; Chronic depression; Anxiety disorder, unspecified type; Mastitis; Chronic sinusitis, unspecified location; Allergic rhinitis, unspecified seasonality, unspecified trigger 08/13/2024 Travel 08/08/[address] [address] Tisha Duke MA chart prep 07/31/2024 Refill [facility] MED & PEDS [address] [place] [address] Britt Hunter MD Rash 07/29/2024 Patient Outreach [address] [address] Britt Hunter MD Pre-visit Planning (SDOH Screening negative and Tobacco screening negative) 07/08/[address] [address] Britt Hunter MD Appointment Request from Last 3 Months Immunizations Name Administration [...] Tobacco: Never Tobacco Cessation:Counseling Given: Not Answered Alcohol Use Standard Drinks/Week Comments Not Currently 0 (1 standard drink = 0.6 oz pur e alcohol) Depression Answer Date Recorded Patient Health Questionnaire-9 [...] Sign Reading Time Taken Comments Blood Pressure 157/88 09/11/2024 10:42 AM EDT Pulse 90 09/11/2024 10:42 AM EDT Temperature 36.3 ??C (97.3 ??F) 09/11/2024 10:42 AM E DT Respiratory Rate 20 09/11/2024 10:42 AM EDT Oxygen Saturation 99% 09/11/2024 10:42 AM EDT Inhaled Oxygen Concentration - - Weight 167 kg (369 lb 3.2 oz) 09/11/2024 10:42 A M EDT Height 162.6 cm (5' 4 ) 09/11/2024 10:42 AM EDT Body Mass Index 63.37 09/11/2024 10:42 AM EDT Plan of Treatment Health Maintenance Due Date Last Done Comments CT Colonography 1970 FIT DNA/Cologuard 1970 FIT 1970 FOBT 1970 Sigmoidoscopy 1970 Pneumococcal Vaccine: 50+ Years (2 of 2 - PCV) 06/28/2013 06/28/2012, 04/23/2007, 04/23/2007 COVID-19 Vaccine ( season) 2024 02/17/2021, 01/27/2021 Colposcopy 09/12/2024 11/11/2015 Colonoscopy 11/09/2024 11/09/2022 Colorectal Cancer Screening 11/09/2024 Depression Monitoring (PHQ-9) 02/10/2025 08/13/2024, 08/13/2024 SDOH Screening 07/29/2025 07/29/2024 Alcohol/Substance Use Screening 08/13/2025 08/13/2024 Depression Screening 08/13/2025 08/13/2024, 08/13/19 Cervical Cancer Screening 09/11/2025 HPV/Cotest 09/11/2025 09/11/2024, 05/0 09/2022, 10/27/2022 Pap Smear 09/11/2025 09/11/2024, 05/0 09/2022, 04/17/2017, Additional history exists Tobacco Screening 09/11/2025 09/11/2024 Mammogram 12/11/2025 12/12/2023, 05/27, 11/18/2020, Additional history [...] Procedure Name Priority Date/Time Associated Diagnosis Comments HEMOGLOBIN A1C Routine 09/25/2024 11:47 AM EDT Screening for diabetes mellitus PAP SMEAR Routine 09/11/2024 11:08 AM EDT Cervical high risk human papillomavirus (HPV) DNA test positive HPV DNA, LOW/HIGH RISK Routine 09/11/2024 11:08 AM EDT BI MAMMOGRAM SCREENING TOMOSYNTHESIS BILATERAL Routine 12/12/2023 12:25 PM EDT HM COLONOSCOPY Routine 11/09/2022 9:15 AM EDT LIPID PANEL WITH REFLEX TO DIRECT LDL Routine 10/04/2022 2:31 PM EDT Impaired fasting glucose ZZZ HISTORICAL HEPATITIS C AB W/REFL TO HCV RNA, QN, PCR Routine 01/08/2020 11:33 AM EDT HIV 1/2 ANTIGEN/ANTIBODY, FOURTH GENERATION W/RFL Routine 01/08/2020 11:33 AM EDT COLPOSCOPY Routine 11/11/2015 12:00 AM EDT from Last 3 Months or Most Recently Relevant to Health Maintenance Results * Hemoglobin A1c (09/25/2024 11:47 AM EDT) Hemoglobin A1c 5.5 <6.0 % [facility] Comment:Hemoglobin A1C Refer ence Range Adults: 4.8 - 6.0 % Non diabetic: < 6.0 % Goal: < 7.0 %Additional Action Suggested: > 8.0 %Note: Hemoglobin A1c results are invalid for patients with abnormal amounts of HbF. Blood transfusions may impact the HbA1c concentration in the patient sample. Estimated Average Glucose 111 mg/dL [facility] Comment:eAG = Estimated ave rage glucose which is %A1C expressed asaverage glucose, using the formula of the G5F-OfgwlqcYerhfin Glucose study (ADAG), Diabetes Care, Vol.31,#8,2007 Blood Venous blood specimen / Unknown 09/25/2024 11:47 AM EDT 09/25/2024 1:12 PM EDT Britt Hunter MD LAB BLOOD ORDERABLES Final Resul t Performing Organization Address [facility]/ZIP Co de Phone Number [facility] [address] [place] [phone] * (ABNORMAL) HPV DNA, Low/High Risk (09/11/2024 11:08 AM EDT) HPV High Risk Negative Negative [facility] HPV Genotype 16 Positive(A) Negative [facility] HPV Genotype 18 Negative Negative [facility] Comment:HPV testing performe d at [facility] (CLIA#[id number]), [address] [place] [address].Testing for HPV was performed using the [employer] MANUEL 6800system. The presence of HPV in the female genital tract isassociated with a number of diseases, including cervicalcarcinoma. The HPV DNA high risk pool tests for HPV 31, 33,35, 39, 45, 51, 52, 56, 58, 59, 66 and 68. The testing forHPV 16 and 18 genotypes has also been performed. A positiveresult indicates detection of nucleic acid sequences fromone or more subtypes, whereas a negative result indicatessuch sequences were not detected. 09/11/2024 11:0 8 AM EDT 09/12/2024 6:00 AM EDT us Mo Rivers CNM LAB BLOOD ORDERABLES Bibi l Result Performing Organization Address City/[facility]/ZIP Co de Phone Number [facility] [address] [place] [phone] * Pap Smear (09/11/2024 11:08 AM EDT) Swab Cervix uteri structure / Unknown 09/11/2024 11:08 AM EDT 09/12/2024 6:00 AM EDT Narrative [facility] - 09/19/2024 10:08 AM EDT ----- ------- Name: Corine Ortega ?Age/Sex: 53/F ? : 1970 Unit#: [id number] ?? Attend Dr: MO RIVERS CNM ?Re09/11/24 ?Status: DEP REF ? Location: [facility] ? Disch: ? ----- ------- SPEC : [id number] ? RECD: 09/12/24-599 ? STATUS: ??SOUT ? REQ NUM: [id number] ? BANDAR: 09/11/24-1107 ? SUBM DR: MO RIVERS CNM ? ENTERED: ??09/12/24-649 ?SP TYPE: Pap Smr ?OTHR : ? ORDERED: ??Pap Smear, PAP path review ? Interpretation ?? ABNORMAL PAP TEST. ?? Satisfactory for evaluation, with atypical squamous cells of undetermined significance ?? (ASC-US). ?? Mild inflammation. ? HPV High Risk: ??Negative ? HPV Genotyping 16: Positive ?? HPV Genotyping 18: ??Negative ?Clinical Information LMP:Post menopausal Previous PAP test: NIL/HPV pos, neg 16/18 in 2022 ? Material Received ?? Cervix ----- ------- Signed (signature on file) Lupe Higuera MD 09/19/24 1946 ? ----- ------- ? END OF REPORT ? us Mo Rivers CNM LAB CYTOLOGY ORDERABLES F inal Result [facility] [address] [place] [phone] * BI Mammogram Screening Tomosynthesis Bilateral (12/12/2023 12:25 PM EDT) Anatomical Region Laterality Modality Breast Bilateral Mammography 12/12/2023 12:2 5 PM EDT Narrative 01/11/2024 3:13 PM EDT ? [facility] [place] ? [address] ?[place] [address] ? Mammography Report ? Signed ? Patient: Corine Ortega ?MR#: [id number] ?? 9 ? : 1970 ?Acct:[id number] ? Age/Sex: 53 / F ?ADM Date: 12/12/23 ? Loc: HO.MAMMO ? Attending Dr: Britt Hunter MD ? Ordering Physician: Britt Hunter MD ?Results: 1Negative ? Date of Service: 12/12/23 ?Follow Up: 1 Year From Orig ?? inal Mammogram ? Procedure(s): MM tomosynthesis screening BI ?? Accession Number(s): [id number] ? cc: Britt Hunter MD ? EXAMINATION: [...] by Lesvia Ruffin MD in OV> ? 01/11/24 1509 ? DD/ 1225 ? TD/TT: ? Inventory Management Specialist: ? Procedure Note Dayanna, Image - 01/11/2024 [facility] [address] [place] [address] Mammography Report Signed Patient: Corine Ortega MMR#: [id number] 9 : 1970Acct:[id number] Age/Sex: 53 / FADM Date: 12/12/23 Loc: [facility] Attending Dr: Britt Hunter MD Ordering Physician: Britt Hunter MDResults: 1Negative Date of Service: 12/12/23Follow Up: 1 Year From Orig inal Mammogram Procedure(s): MM tomosynthesis screening BI Accession Number(s): [id number] cc: Britt Hunter MD EXAMINATION: MM SCREENING [...] in OV> 01/11/24 1509 DD/ 1225 TD/TT: Inventory Management Specialist: Britt Hunter MD IMG BI PROCEDURES Final Result * Hm Colonoscopy (11/09/2022 9:15 AM EDT) Colonoscopy Normal Normal Oxana Aguiar MD HEALTH MAINTENANCE Edited Resul t - Final * Lipid Panel with Reflex to Direct LDL (10/04/2022 2:31 PM EDT) Cholesterol, Total 165 <200 mg/dL [facility] HDL Cholesterol 60 > OR = 50 mg/dL [facility] Triglycerides 132 <150 mg/dL [facility] LDL Cholesterol 82 mg/dL (calc) [facility] Comment: Reference range: <100 Desirable range <100 mg/dL for primary prevention; ?? <70 mg/dL for patients with CHD or diabetic patients with > or = 2 CHD risk factors. LDL-C is now calculated using the Frederic-Shelton calculation, which is a validated novel method providing better accuracy than the Friedewald equation in the estimation of LDL-C. Frederic SS et al. OUMAR. 2013;310(19): 2860-4740 (http://TurningArt.W[employer]ED Technologies/faq/RIZ078) Chol/HDLC Ratio 2.8 <5.0 (calc) [facility] [address] Non-HDL Cholesterol 105 <130 mg/dL (calc) [facility] [address] Comment: For patients with diabetes plus 1 major ASCVD risk factor, treating to a non-HDL-C goal of <100 mg/dL (LDL-C of <70 mg/dL) is considered a therapeutic option. 10/04/2022 2:31 PM EDT 10/04/2022 2:31 PM EDT us Britt Hunter MD LAB BLOOD ORDERABLES Final Resul t [facility] [address] [place] [address], [place] [address] [facility] [address] [place] [address] * HEPATITIS C AB W/REFL TO HCV RNA, QN, PCR (01/08/2020 11:33 AM EDT) HEPATITIS C ANTIBODY NON-REACT SAI NON-REACT SAI [facility] INDEX 0.01 <1.00 [facility] Comment: ?? HCV antibody was non-reactive. There is no laboratory ?? evidence of HCV infection. ?? In most cases, no further action is required. However, if recent HCV exposure is suspected, a test for HCV RNA (test code 38640) is suggested. ?? For additional information please refer to http://education.Depositphotos/faq/PRX49w6 (This link is being provided for informational/ educational purposes only.) ?? HEPATITIS C ANTIBODY NON-REACT SAI NON-REACT SAI [facility] INDEX 0.01 <1.00 [facility] Comment: ?? HCV antibody was non-reactive. There is no laboratory ?? evidence of HCV infection. ?? In most cases, no further action is required. However, if recent HCV exposure is suspected, a test for HCV RNA (test code 44074) is suggested. ?? For additional information please refer to http://Callvine/faq/ZDF92a1 (This link is being provided for informational/ educational purposes only.) ?? HEPATITIS C ANTIBODY NON-REACT SAI NON-REACT SAI [facility] INDEX 0.01 <1.00 [facility] Comment: ?? HCV antibody was non-reactive. There is no laboratory ?? evidence of HCV infection. ?? In most cases, no further action is required. However, if recent HCV exposure is suspected, a test for HCV RNA (test code 40344) is suggested. ?? For additional information please refer to http://Callvine/faq/OQC34i5 (This link is being provided for informational/ educational purposes only.) ?? 01/08/2020 11:3 3 AM EDT Britt Hunter MD HISTORICAL/NON ORDERABLE LABS Fi nal Result [facility] [address] * HIV 1/2 ANTIGEN/ANTIBODY,FOURTH GENERATION W/RFL (01/08/2020 11:33 AM EDT) HIV-1/2 ANTIGEN AND ANTIBODIES, 4TH GENERATION W/ REFLEX NON-REACT SAI NON-REACT SAI [facility] Comment: HIV-1 antigen and [...] ? For additional information please refer to http://TurningArt.Depositphotos/faq/WUF289 (This link is being provided for informational/ educational purposes only.) ? The performance of this assay has not been clinically validated in patients less than 2 years old. ?? HIV-1/2 ANTIGEN AND ANTIBODIES, 4TH GENERATION W/ REFLEX NON-REACT SAI NON-REACT SAI [facility] Comment: HIV-1 antigen and [...] ? For additional information please refer to http://TurningArt.Depositphotos/faq/RSF066 (This link is being provided for informational/ educational purposes only.) ? The performance of this assay has not been clinically validated in patients less than 2 years old. ?? HIV-1/2 ANTIGEN AND ANTIBODIES, 4TH GENERATION W/ REFLEX NON-REACT SAI NON-REACT SAI [facility] Comment: HIV-1 antigen and [...] ? For additional information please refer to http://TurningArt.Depositphotos/faq/EYX358 (This link is being provided for informational/ educational purposes only.) ? The performance of this assay has not been clinically validated in patients less than 2 years old. ?? 01/08/2020 11:3 3 AM EDT us Britt Hunter MD LAB BLOOD ORDERABLES Final Resul t [facility] [address] * Colposcopy (11/11/2015 12:00 AM EDT) us Historical Provider IN CLINIC/BEDSIDE ORDERAB LES Final Result EXTERNAL LAB from Last 3 Months or Most Recently Relevant to Health Maintenance Insurance [facility] STANDARD MEDICARE Care Teams Us Customs And Border Officer Relationship Specialty Start Date End Date Britt Hunter MD [address] [place] [phone] PCP - General Family Medicine 06/26/18
--- OUTSIDE RECORDS SUMMARY | 2024-09-25 14:13 | XMS_ITS | Encounter Summary ---
Author Organization [employer] Address [address] [facility] 7t [place] [address] Care Team Providers Care Optical Sales Associate Name Role Phone Britt Hunter MD Primary Care Provider [phone] Reason for Visit * Reason Comments Med Refill Encounter Details Date Type Department Care Team ([facility] st Contact Info) Description 08/04/2023 Refill [facility] [address] [place], [place] [phone] Britt Hunter MD [address] [place], [place] [phone] Psoriatic arthritis ([facility]/HCC) Social History Tobacco Use Types Packs/Day Years [...] as of this encounter Plan of Treatment Not on file documented as of this encounter Visit Diagnoses Diagnosis Psoriatic arthritis (CMS/HCC) Psoriatic arthropathy documented in this encounter Additional Health Concerns Assessment Noted Time PHQ-9 Depression Total Score: 5 06/05/20 23 1:12 PM EST documented as of this encounter Care Teams Optical Sales Associate Relationship Specialty Start Date End Date Britt Hunter MD [address] [place] [phone] PCP - General Family Medicine 06/26/18 documented as of this encounter
--- OUTSIDE RECORDS SUMMARY | 2024-09-25 14:13 | XMS_ITS | Encounter Summary ---
Author Organization [employer] Address [address] [facility] [address]t [place] [address] Care Team Providers Care Photographer News Name Role Phone Britt Hunter MD Primary Care Provider Reason for Visit * Reason Comments Med Refill Encounter Details Date Type Department Care Team ([facility] st Contact Info) Description 04/13/2023 Refill [facility] [address] [place], [place] [phone] Estephania Mike FNP [address] [place] [address] Social History Tobacco Use Types Packs/Day Years [...] on filedocumented in this encounter Care Teams Photographer News Relationship Specialty Start Date End Date Britt Hunter MD [address] [place] [phone] PCP - General Family Medicine 06/26/18 documented as of this encounter
--- OUTSIDE RECORDS SUMMARY | 2024-09-25 14:13 | XMS_ITS | Encounter Summary ---
Author Organization [employer] Address [address] [facility] 7t [place] [address] Care Team Providers Care Aircraft Skin Burnisher Name Role Phone Britt Hunter MD Primary Care Provider [phone] Encounter Details Date Type Department Care Team (Latest Contact Info) Description 03/19/2021 Abstract [facility] CON[facility] Dental, Provider, DDS Social History [...] on filedocumented in this encounter Care Teams Aircraft Skin Burnisher Relationship Specialty Start Date End Date Britt Hunter MD [address] [place] [phone] PCP - General Family Medicine 06/26/18 documented as of this encounter
--- OUTSIDE RECORDS SUMMARY | 2024-09-25 14:13 | XMS_ITS | Encounter Summary ---
Author Organization [employer] Address [address] [facility] [address]t [place] [address] Care Team Providers Care Clerical Clerk Name Role Phone Britt Hunter MD Primary Care Provider [phone] Encounter Details Date Type Department Care Team (Late st Contact Info) Description 08/02/2022 Orders Only [facility] [address] [place], [place] [phone] Karin Bentley LPN Social History Tobacco Use [...] on filedocumented in this encounter Care Teams Clerical Clerk Relationship Specialty Start Date End Date Britt Hunter MD [address] [place] [phone] PCP - General Family Medicine 06/26/18 documented as of this encounter
--- OUTSIDE RECORDS SUMMARY | 2024-09-25 14:13 | XMS_ITS | Encounter Summary ---
Author Organization [employer] Address [address] [facility] 7t [place] [address] Care Team Providers Care Scrap Breaker Name Role Phone Britt Hunter MD Primary Care Provider [phone] Reason for Visit * Reason Onset Date Comments Letter for School/Work 08/15/2023 Encounter Details Date Type Department Care Team ([facility] Contact Info) Description 08/15/2023 Telephone [facility] MEDICINE [address] [place], [place] [phone] Britt Hunter MD [address] [place], [place] [phone] Letter for School/Work Social History Tobacco Use [...] documented in this encounter Plan of Treatment Not on file documented as of this encounter Visit Diagnoses Not on filedocumented in this encounter Additional Health Concerns Assessment Noted Time PHQ-9 Depression Total Score: 5 06/05/20 23 1:12 PM EST documented as of this encounter Care Teams Scrap Breaker Relationship Specialty Start Date End Date Britt Hunter MD [address] [place] [address] PCP - General Family Medicine 06/26/18 documented as of this encounter
--- OUTSIDE RECORDS SUMMARY | 2024-09-25 14:13 | XMS_ITS | Encounter Summary ---
Author Organization [employer] Address 75 [facility] 7t [place] [address] Care Team Providers Care Enterprise Analyst Name Role Phone Britt Hunter MD Primary Care Provider [phone] Reason for Visit * Reason Onset Date Comments Appointment Request 07/08/2024 Encounter Details Date Type Department Care Team ([facility] st Contact Info) Description 07/08/2024 Telephone [facility] MEDICINE [address] [place], [place] [phone] Britt Hunter MD [address] [place], [place] [phone] Appointment Request Social History Tobacco Use Types [...] physical with pcp, Please contact pt at [phone]. Pt /2 documented in this encounter Plan of Treatment Not on file documented as of this encounter Visit Diagnoses Not on filedocumented in this encounter Additional Health Concerns Assessment Noted Time PHQ-9 Depression Total Score: 5 06/05/20 23 1:12 PM EST documented as of this encounter Care Teams Enterprise Analyst Relationship Specialty Start Date End Date Britt Hunter MD [address] [place] [address] PCP - General Family Medicine 06/26/18 documented as of this encounter
--- OUTSIDE RECORDS SUMMARY | 2024-09-25 14:13 | XMS_ITS | Encounter Summary ---
Author Organization [employer] Address [address] [facility] 7t [place] [address] Care Team Providers Care Rn Admission Name Role Phone Britt Hunter MD Primary Care Provider [phone] Reason for Visit * Reason Comments Med Refill Encounter Details Date Type Department Care Team ([facility] st Contact Info) Description 03/07/2023 Refill [facility] MEDICINE 230 [place], [place] [phone] Britt Hunter MD 230 [place] [address] Social History Tobacco Use Types Packs/Day Years [...] on filedocumented in this encounter Care Teams Rn Admission Relationship Specialty Start Date End Date Britt Hunter MD 230 [place], [place] [phone] PCP - General Family Medicine 06/26/18 documented as of this encounter
--- OUTSIDE RECORDS SUMMARY | 2024-09-25 14:13 | XMS_ITS | Encounter Summary ---
Author Organization [employer] Address 75 [facility] 7t [place] [address] Care Team Providers Care Disbursement Clerk Name Role Phone Britt Hunter MD Primary Care Provider [phone] Reason for Visit * Reason Onset Date Comments Results 09/19/2024 Encounter Details Date Type Department Care Team ([facility] Contact Info) Description 09/19/2024 Telephone [facility] MEDICINE [address] [place], [place] [phone] Rosina Barragan, YEISON [address] [place], [place] [phone] Results Social History Tobacco Use Types Packs/Day Years Used Date Smoking Tobacco: Former Passive Smoke Exposure: Past Smokeless Tobacco: Never Alcohol Use Standard Drinks/Week Comments Not Currently [...] encounter Miscellaneous Notes * Telephone Encounter - Amanda Jansen RN - 09/20/2024 9:38 AM EDT Telephone call to pt, advised that 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 Advised pt that referral made for colposcopy, similar to pap test but more in depth. Pt asked questions about procedure, advised pt per provider she has had it in the past, offered pt appt with SPENCER Barragan however pt declined at this time. Advised her she can call back at any time and to expect call from [facility] to schedule appt and advised pt to ask that office specific questions. Pt asked for PT1 referral to [facility], advised her will send message to referrals specialist to coordinate this. Pt in agreement with pl an, no further questions. * Telephone Encounter - Amanda Jansen RN - 09/19/2024 2:34 PM EDT Telephone call to pt to advise of pap results. No answer, left voicemail to call back [facility]. Will task to call again. * Telephone Encounter - Amanda Jansen RN - 09/19/2024 11:38 AM EDT Telephone call to pt to advise of below results, no answer, left voicemail to call back [facility]. Will task to call again. * Telephone Encounter - Amanda Jansen RN - 09/19/2024 11:32 AM EDT ----- Message from Rosina Barragan sent at 09/19/2024 11:02 AM EDT ----- ASCUS, HPV + pap reviewed. Please call and let her know the pap test came back mildly abnormal. It did not show cancer. This is due to a very common virus that is passed through sex. It 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 I'm going to refer her for a colposcopy so this can be evaluated further. She has had this procedure before, but please schedule an appointment with me if any further questions. If she is smoking, quitting will help fight this infection. Thanks! documented in this encounter Plan of Treatment Not on file documented as of this encounter Visit Diagnoses Not on filedocumented in this encounter Additional Health Concerns Assessment Noted Time PHQ-9 Depression Total Score: 10 08/13/2 025 11:10 AM EST documented as of this encounter Care Teams Disbursement Clerk Relationship Specialty Start Date End Date Britt Hunter MD [address] [place] [address] PCP - General Family Medicine 06/26/18 documented as of this encounter
--- OUTSIDE RECORDS SUMMARY | 2024-09-25 14:13 | XMS_ITS | Encounter Summary ---
Author Organization [employer] Address [address] [facility] 7t [place] [address] Care Team Providers Care Molder Inflated Ball Name Role Phone Britt Hunter MD Primary Care Provider [phone] Encounter Details Date Type Department Care Team (Latest Contact Info) Description 09/03/2018 Abstract [facility] CONVERSIONS Dental, Provider, DDS Social History Tobacco [...] on filedocumented in this encounter Care Teams Molder Inflated Ball Relationship Specialty Start Date End Date Britt Hunter MD [address] [place] [address] PCP - General Family Medicine 06/26/18 documented as of this encounter
--- OUTSIDE RECORDS SUMMARY | 2024-09-25 14:13 | XMS_ITS | Encounter Summary ---
Author Organization [employer] Address [address] [facility] 7t [place] [address] Care Team Providers Care Utility Appraiser Name Role Phone Britt Hunter MD Primary Care Provider [phone] Encounter Details Date Type Department Care Team (Late st Contact Info) Description 07/18/2022 Orders Only [facility] MEDICINE [address] [place], [place] [phone] Michelle Gottlieb LPN Social History Tobacco Use [...] on filedocumented in this encounter Care Teams Utility Appraiser Relationship Specialty Start Date End Date Britt Hunter MD 230 [place] [address] PCP - General Family Medicine 06/26/18 documented as of this encounter
--- OUTSIDE RECORDS SUMMARY | 2024-09-25 14:13 | XMS_ITS | Encounter Summary ---
Author Organization [employer] Address 75 [facility] 7t [place] [address] Care Team Providers Care Outcomes Specialist Name Role Phone Britt Hunter MD Primary Care Provider [phone] Encounter Details Date Type Department Care Team (Late st Contact Info) Description 08/31/2022 Orders Only [facility] MED & PEDS [address] [place], [place] [phone] Karin Bentley LPN Social History Tobacco Use [...] on filedocumented in this encounter Care Teams Outcomes Specialist Relationship Specialty Start Date End Date Britt Hunter MD [address] [place] [phone] PCP - General Family Medicine 06/26/18 documented as of this encounter
[2024-09-25 14:14] LABS: Alanine Aminotransferase 23 U/L (0-31); Albumin Level 4.5 g/dL (3.5-5.0); Alkaline Phosphatase 80 U/L (39-117); Anion Gap 10 (12-20); Aspartate Amino Transferase 29 U/L (5-31); Bilirubin Total 0.8 mg/dL (0.0-1.0); Blood Urea Nitrogen 23 mg/dL (9-16); Calcium 9.9 mg/dL (8.4-10.2); Carbon Dioxide 23 mmol/L (22-29); Chloride 110 mmol/L (96-108); Cholesterol 167 mg/dL (<200); Estimated Glomerular Filt Rate > 60; Glucose Random 96 mg/dL (60-115); HDL Cholesterol 54 mg/dL (>40); LDL Cholesterol Calculated 92 mg/dL (<100); Potassium 4.4 mmol/L (3.3-5.1); Sodium 139 mmol/L (135-145); Total Protein 7.9 g/dL (6.5-8.0); Triglycerides 105 mg/dL (<150)
[2024-09-25 14:15] LABS: Alanine Aminotransferase 22 U/L (0-31); Albumin Level 4.4 g/dL (3.5-5.0); Alkaline Phosphatase 82 U/L (39-117); Anion Gap 14 (12-20); Aspartate Amino Transferase 29 U/L (5-31); Bilirubin Total 0.7 mg/dL (0.0-1.0); Blood Urea Nitrogen 24 mg/dL (9-16); Calcium 9.8 mg/dL (8.4-10.2); Carbon Dioxide 22 mmol/L (22-29); Chloride 110 mmol/L (96-108); Cholesterol 165 mg/dL (<200); Estimated Glomerular Filt Rate > 60; Glucose Random 96 mg/dL (60-115); HDL Cholesterol 53 mg/dL (>40); LDL Cholesterol Calculated 91 mg/dL (<100); Potassium 4.5 mmol/L (3.3-5.1); Sodium 141 mmol/L (135-145); Total Protein 7.8 g/dL (6.5-8.0); Triglycerides 109 mg/dL (<150)
[2024-09-25 14:38] LABS: TSH reflex Free T4 1.38 uIU/mL (0.32-4.0)
[2024-09-25 14:50] LABS: Reflex LDLD? No
== END 2024-09-25 11:38 | disposition home or self-care (01) ==
LOC: HO.HHCL 11:37
PROVIDERS: Visit Provider Family Medicine
DX: E66.01 Morbid (severe) obesity due to excess calories (principal); Z68.44 Body mass index [BMI] 60.0-69.9, adult; Z13.1 Encounter for screening for diabetes mellitus; Z13.220 Encounter for screening for lipoid disorders
CPT/HCPCS: 36415; 80053; 80061; 83036; 84443

== ENCOUNTER 2024-12-16 09:53 | Day surgery (SDC) | payer MEDICARE, MEDICAID, SELFPAY ==
--- OUTSIDE RECORDS SUMMARY | 2024-08-27 08:58 | XMS_ITS | Encounter Summary ---
Author Organization [employer] Address [address] [facility] [address] [place] [address] Care Team Providers Care Director Of Patient Financial Services Name Role Phone Britt Hunter MD Primary Care Provider [phone] Encounter Details Date Type Department Care Team (Late st Contact Info) Description 07/18/2022 Orders Only [facility] [address] [place] [address] Michelle Gottlieb LPN Social History Tobacco Use Types Packs/Day Years Used Date Smoking Tobacco: Never Assessed Comments Unknown Sex and Gender Information Value Date Recorded Sex Assigned at Female 04/25/2022 10:14 AM EDT Legal Sex Female 10:14 AM EDT Gender Identity Female 04/25/2022 10:14 AM EDT Sexual Orientation Straight 04/25/2022 10 :14 AM EDT documented as of this encounter Plan of Treatment Upcoming Encounters Date Type Department Care Team (Late st Contact Info) Description 09/11/2024 10:30 AM EDT Procedure Visit [facility] [address] [place] [address] Rosina Barragan CNM [address] [place] [address] documented as of this encounter Visit Diagnoses Not on filedocumented in this encounter Care Teams Director Of Patient Financial Services Relationship Specialty Start Date End Date Britt Hunter MD [address] [place] [address] PCP - General Family Medicine 06/26/18 documented as of this encounter
--- OUTSIDE RECORDS SUMMARY | 2024-08-27 08:58 | XMS_ITS | Encounter Summary ---
Author Organization [employer] Address [address] [facility] [address] [place] [address] Care Team Providers Care Boat Hop Name Role Phone Britt Hunter MD Primary Care Provider [phone] Encounter Details Date Type Department Care Team (Latest Contact Info) Description 03/19/2021 Abstract [facility] Dental, Provider, DDS Social History Tobacco Use Types Packs/Day Years [...] Description 09/11/2024 10:30 AM EDT Procedure Visit [facility] [address] [place] [address] Rosina Barragan CNM [address] [place] [address] documented as of this encounter Visit Diagnoses Not on filedocumented in this encounter Care Teams Boat Hop Relationship Specialty Start Date End Date Britt Hunter MD [address] [place] [address] PCP - General Family Medicine 06/26/18 documented as of this encounter
--- OUTSIDE RECORDS SUMMARY | 2024-08-27 08:58 | XMS_ITS | Encounter Summary ---
Author Organization [employer] Address [address] [facility] [address] [place] [address] Care Team Providers Care Climatology Teacher Name Role Phone Britt Hunter MD Primary Care Provider [phone] Reason for Visit * Reason Onset Date Comments Abnormal Pap Smear 08/15/2024 Encounter Details Date Type Department Care Team ([facility] st Contact Info) Description 08/15/2024 Telephone [facility] [address] [place], [place] [id number] Gifty Heath [place] Abnormal Pap Smear Social History Tobacco Use Types Packs/Day Years Used Date Smoking Tobacco: Former Passive Smoke Exposure: Past Smokeless Tobacco: Never Depression Answer Date Recorded Patient Health Questionnaire-9 Score 10 08/13/2024 Patient Health Questionnaire-9 Score 10 08/13/2024 Last PHQ-9: Questionnaire Data Not on file 0 08/13/2024 Housing Stability Answer Date Recorded What is your housing situation today? I have giselle zelaya 06/13/[address] you li ve. Do you have problems with any of the following? None of the above 06/13/2024 Food Insecurity Answer Date Recorded Within the past 12 months, y ou worried that your food would run out before you got money to buy more: Never True 06/13/2024 Within the past 12 months,th e food you bought just didn't last and you didn't have enough money to get more: Never True Transportation Answer Date Recorded In the past 12 months, has l ack of transportation kept you from medical appts, meetings, work or from getting things needed for daily living? No 06/13/2024 Utilities Answer Date Recorded In the past 12 months, has t he electric, gas, oil or water company threatened to shut off services in your home? No 06/13/2024 Depression Answer Date Recorded Patient Health Questionnaire-2 Score 3 08/13/2024 Internet Access Answer Date Recorded Internet Access Q1 Yes 06/13/2024 Internet Access Q2 Not on file 06/13/2024 Comments No Sex and Gender Information Value Date Recorded Sex Assigned at Female 04/25/2022 10:14 AM EDT Legal Sex Female 10:14 AM EDT Gender Identity Female 04/25/2022 10:14 AM EDT Sexual Orientation Straight 04/25/2022 10 :14 AM EDT documented as of this encounter Miscellaneous Notes * Telephone Encounter - Gifty Heath [place] - 08/15/2024 10:50 AM EST First time I called daughter Mamie Ortega for a nexplanon insertion 30min appointment stated she will called back when home and had her calendar on her Second time I call pt for a pap smear 30min and pt stated she's in her room upstairs doing stuff that when she goes downstairs where her calendaris she will call back to make appointment for her and her daughter for same day. documented in this encounter Plan of Treatment Upcoming Encounters Date Type Department Care Team (Late st Contact Info) Description 09/11/2024 10:30 AM EDT Procedure Visit [facility] [address] [place] [address] Rosina Barragan CNM [address] [place] [address] documented as of this encounter Visit Diagnoses Not on filedocumented in this encounter Additional Health Concerns Assessment Noted Time PHQ-9 Depression Total Score: 10 025 11:10 AM EST documented as of this encounter Care Teams Climatology Teacher Relationship Specialty Start Date End Date Britt Hunter MD [address] [place] [address] PCP - General Family Medicine 06/26/18 documented as of this encounter
--- OUTSIDE RECORDS SUMMARY | 2024-08-27 08:58 | XMS_ITS | Encounter Summary ---
Author Organization [employer] Address [address] [facility] 7t [place] [address] Care Team Providers Care Career Based Intervention Coordinator Name Role Phone Britt Hunter MD Primary Care Provider [phone] Reason for Visit * Reason Comments Med Refill Encounter Details Date Type Department Care Team ([facility] st Contact Info) Description 08/22/2024 Refill [facility] MEDICINE [address] [place], [place] [phone] Britt Hunter MD [address] [place], [place] [phone] Allergic rhinitis, unspecified seasonality, unspecified trigger Social History Tobacco Use Types Packs/Day Years [...] Description 09/11/2024 10:30 AM EDT Procedure Visit [facility] MEDICINE [address] [place] [address] Rosina Barragan CNM [address] [place] [address] documented as of this encounter Visit Diagnoses Diagnosis Allergic rhinitis, unspecified seasonality, unspecified trigger documented in this encounter Additional Health Concerns Assessment Noted Time PHQ-9 Depression Total Score: 10 025 11:10 AM EST documented as of this encounter Care Teams Career Based Intervention Coordinator Relationship Specialty Start Date End Date Britt Hunter MD [address] [place] [address] PCP - General Family Medicine 06/26/18 documented as of this encounter
--- OUTSIDE RECORDS SUMMARY | 2024-08-27 08:58 | XMS_ITS | Encounter Summary ---
Author Organization [employer] Address [address] [facility] 7t [place] [address] Care Team Providers Care Die Barber Name Role Phone Britt Hunter MD Primary Care Provider [phone] Encounter Details Date Type Department Care Team (Latest Contact Info) Description 08/19/2024 Travel Social History Tobacco Use Types Packs/Day Years [...] Description 09/11/2024 10:30 AM EDT Procedure Visit [facility] MEDICINE [address] [place] [address] Rosina Barragan CNM [address] [place] [address] documented as of this encounter Visit Diagnoses Not on filedocumented in this encounter Additional Health Concerns Assessment Noted Time PHQ-9 Depression Total Score: 10 08/13/ 025 11:10 AM EST documented as of this encounter Care Teams Die Barber Relationship Specialty Start Date End Date Britt Hunter MD [address] [place] [address] PCP - General Family Medicine 06/26/18 documented as of this encounter
--- OUTSIDE RECORDS SUMMARY | 2024-08-27 08:58 | XMS_ITS | Encounter Summary ---
Author Organization [employer] Address [address] [facility] 7t [place] [address] Care Team Providers Care Clinical Resource Director Name Role Phone Britt Hunter MD Primary Care Provider [phone] Encounter Details Date Type Department Care Team (Late st Contact Info) Description 08/31/2022 Orders Only [facility] CHC MED & PEDS [address] [place], [place] [phone] Karin Bentley LPN Social History Tobacco Use Types Packs/Day [...] Description 09/11/2024 10:30 AM EDT Procedure Visit [facility] MEDICINE [address] [place] [address] Rosina Barragan CNM [address] [place] [address] documented as of this encounter Visit Diagnoses Not on filedocumented in this encounter Care Teams Clinical Resource Director Relationship Specialty Start Date End Date Britt Hunter MD [address] [place] [address] PCP - General Family Medicine 06/26/18 documented as of this encounter
--- OUTSIDE RECORDS SUMMARY | 2024-08-27 08:58 | XMS_ITS | Encounter Summary ---
Author Organization [employer] Address [address] [facility] 7t [place] [address] Care Team Providers Care Chief Librarian Branch Name Role Phone Britt Hunter MD Primary Care Provider [phone] Encounter Details Date Type Department Care Team (Late st Contact Info) Description 08/02/2022 Orders Only [facility] CHC MED & PEDS [address] [place], [place] [phone] Karin Bentley LPN Social History Tobacco Use [...] Description 09/11/2024 10:30 AM EDT Procedure Visit [facility] MEDICINE [address] [place] [address] Rosina Barragan CNM [address] [place] [address] documented as of this encounter Visit Diagnoses Not on filedocumented in this encounter Care Teams Chief Librarian Branch Relationship Specialty Start Date End Date Britt Hunter MD [address] [place] [address] PCP - General Family Medicine 06/26/18 documented as of this encounter
--- OUTSIDE RECORDS SUMMARY | 2024-08-27 08:58 | XMS_ITS | Encounter Summary ---
Author Organization [employer] Address [address] [facility] 7t [place] [address] Care Team Providers Care Material Chaser Name Role Phone Britt Hunter MD Primary Care Provider [phone] Encounter Details Date Type Department Care Team (Latest Contact Info) Description 09/03/2018 Abstract [facility] CONVERSIONS Dental, Provider, DDS Social History [...] Description 09/11/2024 10:30 AM EDT Procedure Visit [facility] MEDICINE [address] [place] [address] Rosina Barragan CNM [address] [place] [address] documented as of this encounter Visit Diagnoses Not on filedocumented in this encounter Care Teams Material Chaser Relationship Specialty Start Date End Date Britt Hunter MD [address] [place] [address] PCP - General Family Medicine 06/26/18 documented as of this encounter
--- OUTSIDE RECORDS SUMMARY | 2024-08-27 08:58 | XMS_ITS | Encounter Summary ---
Author Organization [employer] Address [address] [facility] 7[address] [place] [address] Care Team Providers Care Feed Weigher Name Role Phone Britt Hunter MD Primary Care Provider [phone] Reason for Visit * Reason Onset Date Comments Letter for School/Work 08/15/2023 Encounter Details Date Type Department Care Team ([facility] Contact Info) Description 08/15/2023 Telephone [facility] MEDICINE [address] [place], [place] [phone] Britt Hunter MD [address] [place], [place] [phone] Letter for School/Work Social History Tobacco Use Types Packs/Day Years Used Date Smoking Tobacco: Former Passive Smoke Exposure: Past Smokeless Tobacco: Never Depression Answer Date Recorded Patient Health Questionnaire-9 Score 5 06/05/2023 Patient Health Questionnaire-9 Score 5 06/05/2023 Last PHQ-9: Questionnaire Data Not on file 1 08/06/2022 Housing Stability Answer Date Recorded What is your housing situation today? I have giselle zelaya 04/13/[address] you li ve. Do you have problems with any of the following? None of the above 04/13/2023 Food Insecurity Answer Date Recorded Within the past 12 months, y ou worried that your food would run out before you got money to buy more: Never True 04/13/2023 Within the past 12 months,th e food you bought just didn't last and you didn't have enough money to get more: Never True Transportation Answer Date Recorded In the past 12 months, has l ack of transportation kept you from medical appts, meetings, work or from getting things needed for daily living? No 04/13/2023 Utilities Answer Date Recorded In the past 12 months, has t he electric, gas, oil or water company threatened to shut off services in your home? No 04/13/2023 Depression Answer Date Recorded Patient Health Questionnaire-2 Score 2 06/05/2023 Comments No Sex and Gender Information Value Date Recorded Sex Assigned at Female 04/25/2022 10:14 AM EDT Legal Sex Female 10:14 AM EDT Gender Identity Female 04/25/2022 10:14 AM EDT Sexual Orientation Straight 04/25/2022 10 :14 AM EDT documented as of this encounter Miscellaneous Notes * Telephone Encounter - Clementina Srikanth - 08/15/2023 3:46 PM EST Tc from pt requesting a letter stating she cannot attend to jury duty on 09/11 due to arthritis. documented in this encounter Plan of Treatment Upcoming Encounters Date Type Department Care Team (Late st Contact Info) Description 09/11/2024 10:30 AM EDT Procedure Visit [facility] MEDICINE [address] [place] [address] Rosina Barragan CNM [address] [place] [address] documented as of this encounter Visit Diagnoses Not on filedocumented in this encounter Additional Health Concerns Assessment Noted Time PHQ-9 Depression Total Score: 5 06/05/20 23 1:12 PM EST documented as of this encounter Care Teams Feed Weigher Relationship Specialty Start Date End Date Britt Hunter MD [address] [place] [address] PCP - General Family Medicine 06/26/18 documented as of this encounter
--- OUTSIDE RECORDS SUMMARY | 2024-08-27 08:59 | XMS_ITS | Encounter Summary ---
Author Organization [employer] Address [address] [facility] 7t [place] [address] Care Team Providers Care Advertising Account Representative Name Role Phone Britt Hunter MD Primary Care Provider Reason for Visit * Reason Comments Choroidal nevus OD Encounter Details Date Type Department Care Team ([facility] st Contact Info) Description 08/19/2024 2:30 PM EST Office Visit [facility] OPTOMETRY [address] [place], [place] [phone] Rondey, Tiny, OD [address] [place] [address] Choroidal nevus, right eye (Primary Dx); Presbyopia Social History Tobacco Use Types Packs/Day Years [...] AM EDT documented as of this encounter Progress Notes * Tiny Stevens, OD - 08/19/2024 2:30 PM EST Eye Care Progress Note Patient ID: Corine Ortega is a 53 y.o. female. Chief Complaint Choroidal nevus OD HPI Here for a complete eye exam to monitor a choroidal nevus in the right eye. Today she denies visionor ocular complaints. Last eye exam was here in 12/2021. Last edited by Tiny Stevens, OD on 08/19/2024 3:54 PM. Current Outpatient Medications Medication Sig Dispense Refill Magnesium Oxide -Mg Supplement 400 MG capsule take 1 capsule by mouth every day at bedtime Arthritis Pain Relief 650 MG ER tablet TAKE 1-2 TABLETS BY MOUTH TWICE DAILY NEEDED FOR PAIN betamethasone dipropionate (Diprolene) 0.05 % ointment APPLY TO THE AFFECTED AREA(S) TWICE DAILY ASNEEDED Blood Pressure Monitor kit Check blood pressure once daily and as needed 1 kit 0 celecoxib (CeleBREX) 200 MG capsule TAKE 1 CAPSULE BY MOUTH EVERY DAY NEEDED 30 capsule 1 cetirizine (ZyrTEC) 10 MG tablet TAKE 1 TABLET BY MOUTH ONCE DAILY NEEDED 90 tablet 3 cholestyramine (Questran) 4 GM/DOSE powder MIX 4 GRAMS WITH WATER AND DRINK TWICE DAILY ciclopirox (Penlac) 8 % solution Apply topically at bedtime. 6 mL 1 cyanocobalamin (Vitamin B-12) 1000 MCG tablet TAKE 1 TABLET BY MOUTH EVERY DAY 90 tablet 3 D3 Super Strength 50 MCG (2000 UT) capsule TAKE 1 CAPSULE BY MOUTH EVERY DAY 90 capsule 1 docusate sodium (Colace) 100 MG capsule TAKE 1 CAPSULE BY MOUTH TWICE DAILY 180 capsule 1 doxycycline (Vibra-Tabs) 100 MG tablet Take 1 tablet (100 mg) by mouth 2 times daily for 10 days. Take with a full glass of water and do not lie down for at least 30 minutes after. 20 tablet 0 Enbrel SureClick 50 MG/ML injection INJECT 50 MG SUBCUTANEOUSLY ONCE A WEEK FeroSul 325 (65 Fe) MG tablet TAKE 1 TABLET BY MOUTH TWICE DAILY 180 tablet 3 fluticasone (Flonase) 50 MCG/ACT nasal spray INSTILL 2 SPRAYS IN EACH NOSTRIL ONCE DAILY 48 g 0 fluticasone furoate (Arnuity Ellipta) 100 MCG/ACT inhaler Inhale 1 puff Once per day. Rinse mouth with water after use to reduce aftertaste and incidence of candidiasis. Do not swallow. 1 each 11 folic acid (Folvite) 1 MG tablet Take 1,000 mcg by mouth in the morning. Magnesium 400 MG capsule Take 400 mg by mouth at bedtime. 90 capsule 3 melatonin 5 MG tablet TAKE 2 TABLETS BY MOUTH AT BEDTIME NEEDED FOR SLEEP 180 tablet 0 methotrexate 2.5 MG tablet montelukast (Singulair) 10 MG tablet TAKE 1 TABLET BY MOUTH EVERY EVENING 90 tablet 3 mupirocin (Bactroban) 2 % ointment Apply topically 2 times daily for 10 days. 22 g 0 nystatin (Mycostatin) cream APPLY TO THE AFFECTED AREA(S) TOPICALLY TWICE DAILY 30 g 1 omeprazole (PriLOSEC) [address] capsule Take 20 mg by mouth 2 times daily. oxybutynin XL (Ditropan-XL) 15 MG 24 hr tablet Take 15 mg by mouth at bedtime. phentermine 15 MG capsule Take 1 capsule (15 mg) by mouth before breakfast. 30 capsule 0 topiramate (Topamax) 100 MG tablet Take 1 tablet (100 mg) by mouth at bedtime. 90 tablet 3 venlafaxine (Effexor) 100 MG tablet TAKE 1 TABLET BY MOUTH TWICE DAILY WITH FOOD 180 tablet 0 Ventolin HFA 108 (90 Base) MCG/ACT inhaler INHALE 2 PUFFS BY MOUTH EVERY 4 TO 6 HOURS NEEDED 18 g 2 No current facility-administered medications for this visit. Past Medical History: Diagnosis Date Abnormal Pap smear of cervix Atypical squamous cells of undetermined significance (ASCUS) on Papanicolaou smear of cervix 10/20/2015 Choroidal nevus, right COVID-19 02/23/2023 Migraine Pleuritic pain 04/11/2024 Psoriatic arthritis (CMS/HCC) Past Surgical History: Procedure Laterality Date CHOLECYSTECTOMY Family History Problem Relation Name Age of Onset Other (bladder cancer) Mother at 84 Cervical cancer Mother Lung cancer Father Breast cancer Niece 30 Social History Socioeconomic History Marital status: Single Spouse name: Not on file Number of children: Not on file Years of education: Not on file Highest education level: Not on file Occupational History Not on file Tobacco Use Smoking status: Former Passive exposure: Past Smokeless tobacco: Never Vaping Use Vaping status: Never Used Substance and Sexual Activity Alcohol use: Not on file Drug use: Not on file Sexual activity: Not Currently Other Topics Concern Not on file Social History Narrative Not on file Social Drivers of Health Food Insecurity: Low Risk (06/13/2024) Food Insecurity Within the past 12 months, you worried that your food would run out before you got money to buy more:: Never True Within the past 12 months,the food you bought just didn't last and you didn't have enough money to get more: : Never True Transportation Needs: Low Risk (06/13/2024) Transportation In the past 12 months, has lack of transportation kept you from medical appts, meetings, work or from getting things needed for daily living? : No Intimate Partner Violence: Not on file Housing Stability: Low Risk (06/13/2024) Housing Stability What is your housing situation today?: I have housing Think about the place you live. Do you have problems with any of the following? : None of the above Allergies Allergen Reactions Pollen Extract Other reaction(s): SINUSITIS Cephalexin Unknown Latex Unknown ROS Negative for: Constitutional, Gastrointestinal, Neurological, Skin, Genitourinary, Musculoskeletal,HENT, Endocrine, Cardiovascular, Eyes, Respiratory, Psychiatric, Allergic/Imm, Heme/Lymph Last edited by Tiny Stevens, JAIDEN on 08/19/2024 2:27 PM. Base Eye Exam Visual Acuity (Snellen - Linear) Right Left Dist cc 20/20 20/20 -1 Correction: Glasses Tonometry (iCare , 2:35 PM) Right Left Pressure 19 18 Pupils Pupils APD Right PERRL None Left PERRL None Visual Polanco (Counting fingers) Left Right Full Full Extraocular Movement Right Left Full Full Neuro/Psych Oriented x3: Yes Mood/Affect: Normal Dilation Both eyes: 1.0% Tropicamide @ 2:37 PM Slit Lamp and Fundus Exam External Exam Right Left External Normal Normal Slit Lamp Exam Right Left Lids/Lashes Normal Normal Conjunctiva/Sclera White and quiet White and quiet Cornea Clear Clear Anterior Chamber Deep and quiet Deep and quiet [place] Flat Lens Clear Clear Fundus Exam Right Left Vitreous Clear Clear Disc [place] and Distinct [place] and Distinct C/D Ratio Vertical 0.2 0.2 C/D Ratio Horizontal 0.2 0.2 Macula Flat and Intact Flat and Intact Vessels Normal Normal Periphery 1/4 DD flat choroidal nevus without drusen between the ONH and macula, No Holes/Breaks/Tears 360 degrees No Holes/Breaks/Tears 360 degrees Refraction Wearing Rx Sphere Cylinder [place] Add Right +0.50 -0.50 125 +2.00 Left -0.25 Sphere +2.00 Manifest Refraction Sphere Cylinder [place] Dist [place] Add Right +0.25 -0.50 125 20/20 +2.00 Left -0.25 Sphere 20/20 -1 +2.00 Dist VA Both: 20/20 Near VA Both: 20/20 Final Rx Sphere Cylinder [place] Dist VA Add Right +0.25 -0.50 125 20/20 +2.00 Left -0.25 Sphere 20/20 +2.00 Expiration Date: 08/19/2025 Comments: Opposite sphere signs allowed. Assessment/plan: Diagnoses and all orders for this visit: Choroidal nevus, right eye Stable to previous exam findings Patient reeducated on finding. She was educated that the lesion appears benign and small at this time. She was educated that less than 2% of choroidal nevi can metastasize to melanoma over a lifetime. She was educated that annual exams are important to monitor for any changes in the appearance or size of the nevus as melanoma is sight and life-threatening. She stated her understanding. Will monitor in 1 year. Presbyopia Glasses prescription updated and given. Will monitor at the patient's next full eye exam. Tiny Stevens, OD 08/19/2024, 3:56 PM Psychopaedic Nurse Source: __X_ None ___ Bilingual Staff ___ Qualified Staff Shipping Weigher ___ Telephone Psychopaedic Nurse; ID# ___ Psychopaedic Nurse brought by patient (family member, friend, LOAN AUDITOR, etc) ___ In person foreign language interpreter ___ Ipad Psychopaedic Nurse; ID#: Language Spoken During Exam: __English documented in this encounter Plan of Treatment Upcoming Encounters Date Type Department Care Team (Late st Contact Info) Description 09/11/2024 10:30 AM EDT Procedure Visit [facility] MEDICINE [address] [place] [address] Rosina Barragan CNM [address] [place] [address] documented as of this encounter Visit Diagnoses Diagnosis Choroidal nevus, right eye- Primary Benign neoplasm of choroid Presbyopia documented in this encounter Additional Health Concerns Assessment Noted Time PHQ-9 Depression Total Score: 10 08/13/ 025 11:10 AM EST documented as of this encounter Care Teams Advertising Account Representative Relationship Specialty Start Date End Date Britt Hunter MD [address] [place] [address] PCP - General Family Medicine 06/26/18 documented as of this encounter
--- OUTSIDE RECORDS SUMMARY | 2024-08-27 08:59 | XMS_ITS | Encounter Summary ---
Author Organization [email or web address] Address [address] [facility] 7t [place] [address] Care Team Providers Care Heel Lift Gouger Name Role Phone Britt Hunter MD Primary Care Provider [phone] Encounter Details Date Type Department Care Team (Latest Contact Info) Description 08/13/2024 Travel Social History Tobacco Use Types Packs/Day [...] Description 09/11/2024 10:30 AM EDT Procedure Visit [facility] MEDICINE [address] [place] [address] Rosina Barragan CNM [address] [place] [address] documented as of this encounter Visit Diagnoses Not on filedocumented in this encounter Additional Health Concerns Assessment Noted Time PHQ-9 Depression Total Score: 10 08/13/ 025 11:10 AM EST documented as of this encounter Care Teams Heel Lift Gouger Relationship Specialty Start Date End Date Britt Hunter MD [address] [place] [address] PCP - General Family Medicine 06/26/18 documented as of this encounter
--- OUTSIDE RECORDS SUMMARY | 2024-08-27 08:59 | XMS_ITS | Encounter Summary ---
Author Organization [employer] Address [address] [facility] 7t [place] [address] Care Team Providers Care Coil Cleaner Name Role Phone Britt Hunter MD Primary Care Provider [phone] Reason for Visit * Reason Comments Med Refill Encounter Details Date Type Department Care Team ([facility] st Contact Info) Description 07/31/2024 Refill [facility] CHC MED & PEDS [address] [place], [place] [phone] Britt Hunter MD [address] [place] [address] Rash Social History Tobacco Use Types Packs/Day Years [...] Recorded Patient Health Questionnaire-2 Score 2 06/05/2023 Internet Access Answer Date Recorded Internet Access [...] Upcoming Encounters Date Type Department Care Team ([facility] st Contact Info) Description 09/11/2024 10:30 AM EDT Procedure Visit [facility] MEDICINE [address] [place] [address] Rosina Barragan CNM [address] [place] [address] documented as of this encounter Visit Diagnoses Diagnosis Rash Rash and other nonspecific skin eruption documented in this encounter Additional Health Concerns Assessment Noted Time PHQ-9 Depression Total Score: 5 06/05/20 23 1:12 PM EST documented as of this encounter Care Teams Coil Cleaner Relationship Specialty Start Date End Date Britt Hunter MD [address] [place] [address] PCP - General Family Medicine 06/26/18 documented as of this encounter
--- OUTSIDE RECORDS SUMMARY | 2024-08-27 08:59 | XMS_ITS | Encounter Summary ---
Author Organization [employer] Address [address] [facility] 7t [place] [address] Care Team Providers Care Railroad Detective Name Role Phone Britt Hunter MD Primary Care Provider [phone] Reason for Visit * Reason Comments Pre-visit Planning SDOH Screening negat vandana and Tobacco screening negative Encounter Details Date Type Department Care Team ([facility] st Contact Info) Description 07/29/2024 Patient Outreach [facility] MEDICINE [address] [place], [place] [phone] Britt Hunter MD [address] [place] [address] Pre-visit Planning (SDOH Screening negative and Tobacco screening negative) Social History Tobacco Use Types Packs/Day Years [...] as of this encounter Progress Notes * Rachel Livingston - 07/29/2024 12:32 PM EST CC Rachel Menendez placed successful outbound call to patient for pre-visit planning. Patient name and confirmed. Patient confirms appt date and time, and has transportation arrangements. Biggest concern for appointment at this time is no concerns. Patient advised to bring to appointment a photo id and insurance card. Appropriate screenings completed in anticipation of appointment. documented in this encounter Plan of Treatment Upcoming Encounters Date Type Department Care Team (Late st Contact Info) Description 09/11/2024 10:30 AM EDT Procedure Visit [facility] MEDICINE [address] [place] [address] Rosina Barragan CNM [address] [place] [address] documented as of this encounter Visit Diagnoses Not on filedocumented in this encounter Additional Health Concerns Assessment Noted Time PHQ-9 Depression Total Score: 5 06/05/20 23 1:12 PM EST documented as of this encounter Care Teams Railroad Detective Relationship Specialty Start Date End Date Britt Hunter MD [address] [place] [address] PCP - General Family Medicine 06/26/18 documented as of this encounter
--- OUTSIDE RECORDS SUMMARY | 2024-08-27 08:59 | XMS_ITS | Encounter Summary ---
Author Organization [employer] Address [address] [facility] 7t [place] [address] Care Team Providers Care Senior Outside Sales Representative Name Role Phone Britt Hunter MD Primary Care Provider [phone] Reason for Visit * Reason Onset Date Comments Appointment Request 07/08/2024 Encounter Details Date Type Department Care Team ([facility] st Contact Info) Description 07/08/2024 Telephone [facility] MEDICINE [address] [place], [place] [phone] Britt Hunter MD [address] [place], [place] [phone] Appointment Request Social History Tobacco Use Types Packs/Day Years [...] encounter Miscellaneous Notes * Telephone Encounter - Sreedhar Joshi - 07/08/2024 4:23 PM EST Tc from pt requesting to schedule physical with pcp, Please contact pt at [phone]. Pt /2 documented in this encounter Plan of Treatment Upcoming Encounters Date Type Department Care Team (Late st Contact Info) Description 09/11/2024 10:30 AM EDT Procedure Visit [facility] MEDICINE [address] [place] [address] Rosina Barragan CNM [address] [place] [address] documented as of this encounter Visit Diagnoses Not on filedocumented in this encounter Additional Health Concerns Assessment Noted Time PHQ-9 Depression Total Score: 5 06/05/20 23 1:12 PM EST documented as of this encounter Care Teams Senior Outside Sales Representative Relationship Specialty Start Date End Date Britt Hunter MD [address] [place] [address] PCP - General Family Medicine 06/26/18 documented as of this encounter
--- OUTSIDE RECORDS SUMMARY | 2024-08-27 08:59 | XMS_ITS | Encounter Summary ---
Author Organization [employer] Address [address] [place] [address] Care Team Providers Care Solder Sprayer Name Role Phone Britt Hunter MD Primary Care Provider [phone] Reason for Visit * Reason Comments Med Refill Encounter Details Date Type Department Care Team ([facility] st Contact Info) Description 08/04/2023 Refill [facility] MED[facility]INE [address] [place], [place] [phone] Britt Hunter MD [address] [place], [place] [phone] Psoriatic arthritis (CMS/HCC) Social History Tobacco Use Types Packs/Day Years [...] Description 09/11/2024 10:30 AM EDT Procedure Visit [facility] MED[facility]INE [address] [place] [address] Rosina Barragan CNM [address] [place] [address] documented as of this encounter Visit Diagnoses Diagnosis Psoriatic arthritis (CMS/HCC) Psoriatic arthropathy documented in this encounter Additional Health Concerns Assessment Noted Time PHQ-9 Depression Total Score: 5 06/05/20 23 1:12 PM EST documented as of this encounter Care Teams Solder Sprayer Relationship Specialty Start Date End Date Britt Hunter MD [address] [place] [id number] PCP - General Family Medicine 06/26/18 documented as of this encounter
--- OUTSIDE RECORDS SUMMARY | 2024-08-27 08:59 | XMS_ITS | Encounter Summary ---
Author Organization [employer] Address [address] [facility] [address] [place] [address] Care Team Providers Care Pharmacy Resident Name Role Phone Britt Hunter MD Primary Care Provider [phone] Reason for Visit * Reason Onset Date Comments chart prep 08/08/2024 Encounter Details Date Type Department Care Team ([facility] st Contact Info) Description 08/08/2024 Telephone [facility] MEDICINE [address] [place], [place] [phone] Tisha Duke MA chart prep Social History Tobacco Use Types Packs/Day Years [...] t he electric, gas, oil or water [employer] threatened to shut off services in your [...] encounter Miscellaneous Notes * Telephone Encounter - Tisha Duke MA - 08/08/2024 1:15 PM EST ..chart Prep Labs: not done 06/05/23 Images: not done xray Vaccines due: Covid Due, Hep B Due, and Flu Due Referrals: Completed Screenings: PAP Overdue care gaps: Sbirt, PHQ-9, and fredrick-7 documented in this encounter Plan of Treatment Upcoming Encounters Date Type Department Care Team (Late st Contact Info) Description 09/11/2024 10:30 AM EDT Procedure Visit [facility] MED[facility]INE [address] [place] [address] Rosina Barragan CNM [address] [place] [address] documented as of this encounter Visit Diagnoses Not on filedocumented in this encounter Additional Health Concerns Assessment Noted Time PHQ-9 Depression Total Score: 5 06/05/20 23 1:12 PM EST documented as of this encounter Care Teams Pharmacy Resident Relationship Specialty Start Date End Date Britt Hunter MD [address] [place] [address] PCP - General Family Medicine 06/26/18 documented as of this encounter
--- OUTSIDE RECORDS SUMMARY | 2024-08-27 08:59 | XMS_ITS | Encounter Summary ---
Author Organization [employer] Address [address] [facility] [address] [place] [address] Care Team Providers Care Manufacturing Team Leader Name Role Phone Britt Hunter MD Primary Care Provider [phone] Encounter Details Date Type Department Care Team (Latest Contact Info) Description 08/13/2024 10:45 AM EST Office Visit [facility] MEDICINE [address] [place], [place] [phone] Britt Hunter MD [address] [place], [place] [phone] Screening for diabetes mellitus (Primary Dx); Encounter for immunization; Screening for lipid disorders; Elevated BP without diagnosis of hypertension; Postcholecystectomy syndrome; Moderate persistent asthma without complication; Chronic nonintractable headache, unspecified headache type; Gastroesophageal reflux disease, unspecified whether esophagitis present; Neurogenic bladder; Mixed stress and urge urinary incontinence; Psoriatic arthritis ([facility]); Vitamin D deficiency; Class 3 severe obesity due to excess calories with serious comorbidity and body mass index (BMI) of 60.0 to 69.9 in adult ([facility]/HCC); Impaired fasting glucose; Bipolar II disorder ([facility]/HCC); Iron deficiency anemia, unspecified iron deficiency anemia type; Nutritional anemia; Chronic depression; Anxiety disorder, unspecified type; Mastitis; Chronic sinusitis, unspecified location; Allergic rhinitis, unspecified seasonality, unspecified trigger Social [...] AM EDT documented as of this encounter Last Filed Vital Signs Vital Sign Reading Time Taken Comments Blood Pressure 134/88 08/13/2024 11:40 AM EST Pulse 81 08/13/2024 10:55 AM EST Temperature 36.1 ??C (96.9 ??F) 08/13/2024 10:[address] Respiratory Rate 17 08/13/2024 10:55 AM EST Oxygen Saturation 97% 08/13/2024 10:55 AM EST Inhaled Oxygen Concentration - - Weight 172 kg (378 lb 12.8 oz) 08/13/2024 10:55 AM EST Height - - Body Mass Index 67.1 10/27/2022 10:45 AM EDT documented in this encounter Miscellaneous Notes * Assessment & Plan Note - Britt Hunter MD - 08/18/2024 12:38 PM ESTAssociated Problem(s): Allergic rhinitis - continue cetirizine and fluticasone nasal - continue montelukast * Assessment & Plan Note - Britt Hunter MD - 08/16/2024 5:11 PM ESTAssociated Problem(s): Bipolar II disorder ([facility]) - previously diagnosed as bipolar II - consider re-assessment / Dx * Assessment & Plan Note - Britt Hunter MD - 08/16/2024 4:18 PM ESTAssociated Problem(s): Chronic depression - continue venlafaxine * Assessment & Plan Note - Britt Hunter MD - 08/16/2024 4:16 PM ESTAssociated Problem(s): Nutritional anemia - continue supplement * Assessment & Plan Note - Britt Hunter MD - 08/16/2024 4:16 PM ESTAssociated Problem(s): Iron deficiency anemia - continue supplement * Assessment & Plan Note - Britt Hunter MD - 08/16/2024 4:12 PM ESTAssociated Problem(s): Vitamin D deficiency - continue vitamin D 2000 units daily * Assessment & Plan Note - Britt Hunter MD - 08/16/2024 4:00 PM ESTAssociated Problem(s): Postcholecystectomy syndrome - following with [facility] -symptoms have improved -anticipating Colonoscopy in September 2024 * Assessment & Plan Note - Karin Reynaga MA - 08/13/2024 4:24 PM ESTAssociated Problem(s): Obesity - continue working on lifestyle modification - patient is interested in GLP1RA - she has a difficulty losing weight by lifestyle modification alone because she has psoriatic arthritis - patient is hesitant to try phentermine because of her BP, mood disorder, and psoriatic arthritis;however, her insurance may not approve GLP1RA if she does not try it. We will start at the lowest dose. Discussed about its potential side effect. * Assessment & Plan Note - Karin Reynaga MA - 08/13/2024 4:23 PM ESTAssociated Problem(s): Impaired fasting glucose 10/04/22 A1C 5.3% Continue working on lifestyle modifications * Assessment & Plan Note - Karin Reynaga MA - 08/13/2024 4:23 PM ESTAssociated Problem(s): Psoriatic arthritis ([facility]) -Followed by Dr. Saldana at [facility] -Periodic lab per specialist -Continue Enbrel, Methotrexate, and folic acid. -Previously taking Ibuprofen 800mg TID. -Currently on ALVARADO-2 / Celebrex, -She was advised to stop Ibuprofen david she is taking Celebrex, and reviewed its side effect and judicious use -Take Tylenol for pain. * Assessment & Plan Note - Karin Reynaga MA - 08/13/2024 4:23 PM ESTAssociated Problem(s): Neurogenic bladder - continue oxybutynin * Assessment & Plan Note - Karin Reynaga MA - 08/13/2024 4:23 PM ESTAssociated Problem(s): Mixed stress and urge urinary incontinence - seen by urologist for f/u to discuss CT scan results from 04/22/21 -Continue behavioral measures / non-pharmacotherapy --Wt reduction --Kegel exercise --Decrease caffeine intake --Urinary symptom diary -continue oxybutynin ER 15mg daily -Scheduled for cystoscopy and US, but pt is unable to complete bladder scan * Assessment & Plan Note - Karin Reynaga MA - 08/13/2024 4:21 PM ESTAssociated Problem(s): Gastroesophageal reflux disease - following with [facility], last seen in December 2023 - continue omeprazole 20 mg bid - previously prescribed sucralfate 10 mg daily, but no longer taking * Assessment & Plan Note - Karin Reynaga MA - 08/13/2024 4:21 PM ESTAssociated Problem(s): Elevated BP without diagnosis of hypertension -Goal BP < 140/90 per JNC-8 and < 130/80 per ACC/AHA guideline (Treatment threshold >=140/90 ) -BP elevated today -Continue working on lifestyle modifications -Recommended self-monitoring BP. -Advised to follow up with sleep medicine clinic. -Follow up in 3-6 mo, sooner if any problem arises * Assessment & Plan Note - Karin Reynaga MA - 08/13/2024 4:21 PM ESTAssociated Problem(s): Asthma - currently prescribed fluticasone (Arnuity) 100 mcg one puff bid as maintenance - continue albuterol HFA / neb prn - will discuss about transitioning to SMART in near future * Assessment & Plan Note - Karin Reynaga MA - 08/13/2024 4:21 PM ESTAssociated Problem(s): Chronic headache - multifactorial and multiple risk factors: Migraine; tension; FAMILIA; sinus; stress - Current medication: topiramate - Will add magnesium oxide - continue current medication and stress reduction documented in this encounter Plan of Treatment Upcoming Encounters Date Type Department Care Team (Late st Contact Info) Description 09/11/2024 10:30 AM EDT Procedure Visit [facility] MEDICINE [address] [place] [address] Rosina Barragan CNM [address] [place] [address] Scheduled Orders Name Type Priority Associated Diagnoses Orde r Schedule Comprehensive Metabolic Panel Lab Routine Screening for lipid disorders Expected: 08/13/2024 (Approximate), Expires: 08/12/2025 Hemoglobin A1c Lab Routine Screening for diabetes mellitus Expected: 08/13/2024 (Approximate), Expires: 08/12/2025 Lipid Panel with Reflex to Direct LDL Lab Routine Screening for lipid disorders Ordered: 08/13/2024 documented as of this encounter Visit Diagnoses Diagnosis Screening for diabetes mellitus- Primary Encounter for immunization Screening for lipid disorders Elevated BP without diagnosis of hypertension Postcholecystectomy syndrome Moderate persistent asthma without complication Chronic nonintractable headache, unspecified headache type Gastroesophageal reflux disease, unspecified whether esophagitis present Neurogenic bladder Neurogenic bladder, NOS Mixed stress and urge urinary incontinence Mixed incontinence urge and stress (male)(female) Psoriatic arthritis ([facility]) Psoriatic arthropathy Vitamin D deficiency Class 3 severe obesity due to excess calories with serious comorbidity and body mass index (BMI) of 60.0 to 69.9 in adult ([facility]) Impaired fasting glucose Bipolar II disorder ([facility]) Other bipolar disorders Iron deficiency anemia, unspecified iron deficiency anemia type Nutritional anemia Unspecified deficiency anemia Chronic depression Anxiety disorder, unspecified type Mastitis Inflammatory disease of breast Chronic sinusitis, unspecified location Allergic rhinitis, unspecified seasonality, unspecified trigger documented in this encounter Additional Health Concerns Assessment Noted Time PHQ-9 Depression Total Score: 10 025 11:10 AM EST documented as of this encounter Care Teams Manufacturing Team Leader Relationship Specialty Start Date End Date Britt Hunter MD [address] [place] [address] PCP - General Family Medicine 06/26/18 documented as of this encounter
--- OUTSIDE RECORDS SUMMARY | 2024-08-27 08:59 | XMS_ITS | Encounter Summary ---
Author Organization [employer] Address [address] [facility] [address] [place] [address] Care Team Providers Care Cripple Chaser Name Role Phone Britt Hunter MD Primary Care Provider [phone] Reason for Visit * Reason Comments Med Refill Encounter Details Date Type Department Care Team ([facility] st Contact Info) Description 08/15/2024 Refill [facility] [address] [place], [place] [phone] Britt Hunter MD [address] [place] [address] Psoriatic arthritis (CMS/HCC) Social History Tobacco Use [...] 10:30 AM EDT Procedure Visit [facility] MEDICINE [address] [place] [address] Rosina Barragan CNM [address] [place] [address] documented as of this encounter Visit Diagnoses Diagnosis Psoriatic arthritis (CMS/HCC) Psoriatic arthropathy documented in this encounter Additional Health Concerns Assessment Noted Time PHQ-9 Depression Total Score: 10 025 11:10 AM EST documented as of this encounter Care Teams Cripple Chaser Relationship Specialty Start Date End Date Britt Hunter MD [address] [place] [address] PCP - General Family Medicine 06/26/18 documented as of this encounter
--- OUTSIDE RECORDS SUMMARY | 2024-08-27 08:59 | XMS_ITS | Encounter Summary ---
Author Organization [employer] Address [address] [facility] [address] [place] [address] Care Team Providers Care Plasterer Apprentice Name Role Phone Britt Hunter MD Primary Care Provider [phone] Reason for Visit * Reason Comments Med Refill Encounter Details Date Type Department Care Team ([facility] Contact Info) Description 03/07/2023 Refill [facility] MEDICINE [address] [place], [place] [phone] Britt Hunter MD [address] [place] [address] Social History Tobacco Use Types Packs/Day Years Used Date Smoking Tobacco: Former Passive Smoke Exposure: Past Smokeless Tobacco: Never Comments No Sex and Gender Information Value [...] Description 09/11/2024 10:30 AM EDT Procedure Visit [facility] MEDICINE [address] [place], [place] [phone] Rosina Barragan CNM [address] [place] [address] documented as of this encounter Visit Diagnoses Not on filedocumented in this encounter Care Teams Plasterer Apprentice Relationship Specialty Start Date End Date Britt Hunter MD [address] [place] [id number] PCP - General Family Medicine 06/26/18 documented as of this encounter
--- OUTSIDE RECORDS SUMMARY | 2024-08-27 08:59 | XMS_ITS | Clinical Summary ---
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 Name Role Phone Britt Hunter MD Primary Care Provider [phone] Allergies Active Allergy Reactions Criticality Noted Date Comments Cephalexin Unknown 06/11/2010 Latex Unknown 11/09/2021 Pollen Extract High 04/20/2021 Other reaction(s): SINUSITIS Medications Ventolin HFA 108 (90 Base) MCG/ACT inhalerIndicati ons:Moderate persistent asthma without complication INHALE 2 PUFFS BY MOUTH EVERY 4 TO 6 HOURS NEEDED 18 g 2 023 Active Arthritis Pain Relief 650 MG ER tablet TAKE 1-2 TABLETS BY MOUTH TWICE DAILY NEEDED FOR PAIN 023 Active betamethasone dipropionate (Diprolene) 0.05 % ointment APPLY TO THE AFFECTED AREA(S) TWICE DAILY NEEDED 023 Active cholestyramine (Questran) 4 GM/DOSE powder MIX 4 GRAMS WITH WATER AND DRINK TWICE DAILY 023 Active Enbrel SureClick 50 MG/ML injection INJECT 50 MG SUBCUTANEOUSLY ONCE A WEEK 023 Active folic acid (Folvite) 1 MG tablet Take 1,000 mcg by mouth in the morning. 022 Active methotrexate 2.5 MG tablet 023 Active omeprazole (PriLOSEC) [address] capsule Take 20 mg by mouth 2 times daily. 023 Active oxybutynin XL (Ditropan-XL) 15 MG 24 hr tablet Take 15 mg by mouth at bedtime. 023 Active melatonin 5 MG tablet TAKE 2 TABLETS BY MOUTH AT BEDTIME NEEDED FOR SLEEP 180 tablet 023 Active Blood Pressure Monitor kit Check blood pressure once daily and as needed 1 kit 023 Active ciclopirox (Penlac) 8 % solution Apply topically at bedtime. 6 mL 1 023 Active docusate sodium (Colace) 100 MG capsuleIndicati ons:Constipatio n, unspecified constipation type TAKE 1 CAPSULE BY MOUTH TWICE DAILY 180 capsule 1 024 Active FeroSul 325 (65 Fe) MG tabletIndicatio ns:Anemia, unspecified type TAKE 1 TABLET BY MOUTH TWICE DAILY 180 tablet 3 024 Active fluticasone furoate (Arnuity Ellipta) 100 MCG/ACT inhaler Inhale 1 puff Once per day. Rinse mouth with water after use to reduce aftertaste and incidence of candidiasis. Do not swallow. 1 each 11 024 2024 Active montelukast (Singulair) 10 MG tablet TAKE 1 TABLET BY MOUTH EVERY EVENING 90 tablet 3 024 Active venlafaxine (Effexor) 100 MG tablet TAKE 1 TABLET BY MOUTH TWICE DAILY WITH FOOD 180 tablet 024 Active fluticasone (Flonase) 50 MCG/ACT nasal spray INSTILL 2 SPRAYS IN EACH NOSTRIL ONCE DAILY 48 g 024 Active topiramate (Topamax) 100 MG tablet Take 1 tablet (100 mg) by mouth at bedtime. 90 tablet 3 024 Active cyanocobalamin (Vitamin B-12) 1000 MCG tablet TAKE 1 TABLET BY MOUTH EVERY DAY 90 tablet 3 024 Active nystatin (Mycostatin) creamIndication s:Rash APPLY TO THE AFFECTED AREA(S) TOPICALLY TWICE DAILY 30 g 1 025 Active Magnesium 400 MG capsule Take 400 mg by mouth at bedtime. 90 capsule 3 025 Active phentermine 15 MG capsule Take 1 capsule (15 mg) by mouth before breakfast. 30 capsule 025 2024 Active celecoxib (CeleBREX) 200 MG capsuleIndicati ons:Psoriatic arthritis (CMS/HCC) TAKE 1 CAPSULE BY MOUTH EVERY DAY NEEDED 30 capsule 1 025 Active Magnesium Oxide -Mg Supplement 400 MG capsule take 1 capsule by mouth every day at bedtime Active D3 Super Strength 50 MCG (2000 UT) capsule TAKE 1 CAPSULE BY MOUTH EVERY DAY 90 capsule 3 025 Active cetirizine (ZyrTEC) 10 MG tabletIndicatio ns:Allergic rhinitis, unspecified seasonality, unspecified trigger TAKE 1 TABLET BY MOUTH ONCE DAILY NEEDED 90 tablet 3 025 Active Mometasone Furoate (Asmanex HFA) 100 MCG/ACT aerosol Take 1 puff by mouth twice daily. Rinse mouth after each use. 13 g 11 023 2024 Discontinued(M ed list cleanup (will not trigger notification to Pharmacy)) cetirizine (ZyrTEC) 10 MG tabletIndicatio ns:Allergic rhinitis, unspecified seasonality, unspecified trigger TAKE 1 TABLET BY MOUTH ONCE DAILY NEEDED 90 tablet 3 024 2024 Discontinued fluticasone furoate (Arnuity Ellipta) 100 MCG/ACT inhalerIndicati ons:Moderate persistent asthma without complication Inhale 1 puff in the morning. Rinse mouth with water after use to reduce aftertaste and incidence of candidiasis. Do not swallow. 30 each 11 024 2024 Discontinued(D uplicate order (will not trigger notification to Pharmacy)) D3 Super Strength 50 MCG (2000 UT) capsule TAKE 1 CAPSULE BY MOUTH EVERY DAY 90 capsule 1 024 2024 Discontinued nystatin (Mycostatin) creamIndication s:Rash APPLY TO THE AFFECTED AREA(S) TOPICALLY TWICE DAILY 30 g 1 024 2024 Discontinued celecoxib (CeleBREX) 200 MG capsuleIndicati ons:Psoriatic arthritis (CMS/HCC) TAKE 1 CAPSULE BY MOUTH EVERY DAY NEEDED 30 capsule 1 024 2024 Discontinued amoxicillin-cla vulanate (Augmentin) 875-125 MG tablet Take 1 tablet by mouth 2 times daily for 7 days. 14 tablet 025 2024 Discontinued(E ntered in error) mupirocin (Bactroban) 2 % ointment Apply topically 2 times daily for 10 days. 22 g 025 2024 doxycycline (Vibra-Tabs) 100 MG tablet Take 1 tablet (100 mg) by mouth 2 times daily for 10 days. Take with a full glass of water and do not lie down for at least 30 minutes after. 20 tablet 025 2024 Active Problems Problem Noted Date Diagnosed Date Nausea 04/11/2024 Asthma 06/11/2023 Assessment & Plan (08/16/2024 4:18 PM EST): - currently prescribed fluticasone (Arnuity) 100 mcg one puff bid as maintenance - continue albuterol HFA / neb prn - will discuss about transitioning to SMART in near future Assessment & Plan (06/11/2023 12:29 PM EST): - pt has been on Flovent; will switch to mometasone 100 mcg one puff bid as maintenance - continue albuterol HFA / neb prn Elevated BP without diagnosis of hypertension Assessment & Plan (08/16/2024 3:59 PM EST): -Goal BP < 140/90 per JNC-8 and < 130/80 per ACC/AHA guideline (Treatment threshold >=140/90 ) -BP elevated today -Continue working on lifestyle modifications -Recommended self-monitoring BP. -Advised to follow up with sleep medicine clinic. -Follow up in 3-6 mo, sooner if any problem arises Assessment & Plan (06/11/2023 12:10 PM EST): -Goal BP < 140/90 per JNC-8 and < 130/80 per ACC/AHA guideline (Treatment threshold >=140/90 ) -BP elevated today -Continue working on lifestyle modifications -Recommended self-monitoring BP. -Advised to schedule sleep study soon -Follow up in 3-6 mo, sooner if any problem arises Assessment & Plan (03/03/2023 2:29 PM EDT): -Goal BP < 140/90 per JNC-8 and < 130/80 per ACC/AHA guideline (Treatment threshold >=140/90 ) -BP elevated today -Continue working on lifestyle modifications -Recommended self-monitoring BP. -Advised to schedule sleep study soon -Follow up in 3-6 mo, sooner if any problem arises Chronic headache 10/05/2022 Assessment & Plan (08/16/2024 3:58 PM EST): - multifactorial and multiple risk factors: Migraine; tension; FAMILIA; sinus; stress - Current medication: topiramate - Will add magnesium oxide - continue current medication and stress reduction Assessment & Plan (06/11/2023 12:14 PM EST): - multifactorial and multiple risk factors: Migraine; tension; FAMILIA; sinus; stress - Current medication: topiramate - continue current medication and Assessment & Plan (10/05/2022 6:23 AM EDT): - multifactorial and multiple risk factors: Migraine; tension; FAMILIA; sinus; stress - Current medication: topiramate - continue current medication and Mixed stress and urge urinary incontinence 10/05 Assessment & Plan (08/13/2024 4:23 PM EST): - seen by urologist for f/u to discuss CT scan results from 04/22/21 -Continue behavioral measures / non-pharmacotherapy --Wt reduction --Kegel exercise --Decrease caffeine intake --Urinary symptom diary -continue oxybutynin ER 15mg daily -Scheduled for cystoscopy and US, but pt is unable to complete bladder scan Assessment & Plan (06/11/2023 12:22 PM EST): - seen by urologist for f/u to discuss CT scan results from 04/22/21 -Continue behavioral measures / non-pharmacotherapy --Wt reduction --Kegel exercise --Decrease caffeine intake --Urinary symptom diary -continue oxybutynin ER 15mg daily -Scheduled for cystoscopy and US, but pt is unable to complete bladder scan Assessment & Plan (10/05/2022 6:30 AM EDT): - seen by urologist for f/u to discuss CT scan results from 04/22/21 -Continue behavioral measures / non-pharmacotherapy --Wt reduction --Kegel exercise --Decrease caffeine intake --Urinary symptom diary -continue oxybutynin ER 15mg daily -Scheduled for cystoscopy and US, but pt is unable to complete bladder scan Neurogenic bladder 10/05/2022 Assessment & Plan (08/13/2024 4:23 PM EST): - continue oxybutynin Assessment & Plan (06/11/2023 12:22 PM EST): - continue oxybutynin Assessment & Plan (10/05/2022 6:30 AM EDT): - continue oxybutynin 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 Assessment & Plan (08/16/2024 4:00 PM EST): - following with [facility] -symptoms have improved -anticipating Colonoscopy in September 2024 Assessment & Plan (10/04/2022 2:24 PM EDT): Seen by GI on 09/29/22 -symptoms have improved -anticipating Colonoscopy on 11/04/22 Anxiety disorder 08/10/2018 Bipolar II disorder 08/10/2018 Assessment & Plan (08/16/2024 5:11 PM EST): - previously diagnosed as bipolar II - consider re-assessment / Dx Allergic rhinitis 12/06/2016 Assessment & Plan (08/18/2024 12:38 PM EST): - continue cetirizine and fluticasone nasal - continue montelukast Assessment & Plan (06/11/2023 12:26 PM EST): - continue cetirizine and fluticasone nasal - continue montelukast Chronic depression 03/01/2016 Assessment & Plan (08/16/2024 4:18 PM EST): - continue venlafaxine Assessment & Plan (06/11/2023 12:25 PM EST): - continue venlafaxine Assessment & Plan (03/03/2023 2:32 PM EDT): - continue venlafaxine Vitamin D deficiency 03/01/2016 Assessment & Plan (08/16/2024 4:12 PM EST): - continue vitamin D 2000 units daily Impaired fasting glucose 11/06/2014 Assessment & Plan (08/13/2024 4:23 PM EST): 10/04/22 A1C 5.3% Continue working on lifestyle modifications Assessment & Plan (06/11/2023 12:24 PM EST): 10/04/22 A1C 5.3% Continue working on lifestyle modifications Assessment & Plan (03/03/2023 2:31 PM EDT): 10/04/22 A1C 5.3% Continue working on lifestyle modifications Assessment & Plan (10/04/2022 2:29 PM EDT): Will check lab for updated lipid profile Iron deficiency anemia 04/24/2012 Assessment & Plan (08/16/2024 4:16 PM EST): - continue supplement Chronic sinusitis 04/05/2012 Psoriatic arthritis 04/05/2012 Assessment & Plan (08/13/2024 4:23 PM EST): -Followed by Dr. Saldana at [facility] -Periodic lab per specialist -Continue Enbrel, Methotrexate, and folic acid. -Previously taking Ibuprofen 800mg TID. -Currently on ALVARADO-2 / Celebrex, -She was advised to stop Ibuprofen david she is taking Celebrex, and reviewed its side effect and judicious use -Take Tylenol for pain. Assessment & Plan (06/11/2023 12:23 PM EST): -Followed by Dr. Saldana at [facility] -Periodic lab per specialist -Continue Enbrel, Methotrexate, and folic acid. -Previously taking Ibuprofen 800mg TID. -Currently on ALVARADO-2 / Celebrex, -She was advised to stop Ibuprofen david she is taking Celebrex, and reviewed its side effect and judicious use -Take Tylenol for pain. Assessment & Plan (03/03/2023 2:30 PM EDT): -Followed by Dr. Saldana at [facility], last seen in December 2022, ESR 20 -Periodic lab per specialist -Continue Enbrel, Methotrexate, and folic acid. -Previously taking Ibuprofen 800mg TID. -Currently on ALVARADO-2 / Celebrex, -She was advised to stop Ibuprofen david she is taking Celebrex, and reviewed its side effect and judicious use -Take Tylenol for pain. Assessment & Plan (10/05/2022 6:27 AM EDT): -Followed by Dr. Saldana at [facility] -Periodic lab per specialist -Continue Enbrel, Methotrexate, and folic acid. -Previously taking Ibuprofen 800mg TID. -Currently on ALVARADO-2 / Celebrex, -She was advised to stop Ibuprofen david she is taking Celebrex, and reviewed its side effect and judicious use -Take Tylenol for pain. Nutritional anemia 04/05/2012 Assessment & Plan (08/16/2024 4:16 PM EST): - continue supplement Gastroesophageal reflux disease 02/01/2012 Assessment & Plan (08/16/2024 4:01 PM EST): - following with [facility], last seen in December 2023 - continue omeprazole 20 mg bid - previously prescribed sucralfate 10 mg daily, but no longer taking Assessment & Plan (06/11/2023 12:21 PM EST): - following with [facility], last seen in Apr 2023 - continue omeprazole 20 mg bid - continue sucralfate 10 mg daily Obesity 02/01/2012 Assessment & Plan (08/16/2024 4:22 PM EST): - continue working on lifestyle modification - patient is interested in GLP1RA - she has a difficulty losing weight by lifestyle modification alone because she has psoriatic arthritis - patient is hesitant to try phentermine because of her BP, mood disorder, and psoriatic arthritis; however, her insurance may not approve GLP1RA if she does not try it. We will start at the lowest dose. Discussed about its potential side effect. Assessment & Plan (06/11/2023 12:24 PM EST): - continue working on lifestyle modification Resolved Problems Problem Noted Date Diagnosed Date Resolved Date Moderate persistent asthma w ith acute exacerbation 04/11/2024 06/23/2024 Assessment & Plan (04/11/2024 2:25 PM EDT): Avoid asthma triggers Albuterol inhaler Q 4-6 hrs PRN Prednisone 40mg for 5 days Pleuritic pain 04/11/2024 08/16/2024 Assessment & Plan (04/11/2024 2:26 PM EDT): CXR ordered patient will be contacted with results Cough syrup prescribed COVID-19 02/23/2023 03/03/2023 Atypical squamous cells of u ndetermined significance (ASCUS) on Papanicolaou smear of cervix 10/20/2015 03/03/2023 Assessment & Plan (10/05/2022 6:15 AM EDT): - most recent PAP in 2017 was NILM with negative high-risk HPV by her previous [employer] Encounters Date Type Department Care Team Description 08/22/2024 Refill [facility] [address] [place] [address] Britt Hunter MD Allergic rhinitis, unspecified seasonality, unspecified trigger 08/19/2024 2:30 PM EST Office Visit [facility] [address] [place], [place] [phone] Rodney, Tiny, OD Choroidal nevus, right eye (Primary Dx); Presbyopia 08/19/2024 Travel 08/15/2024 Telephone [facility] [address], [place] [phone] Gifty Heath [place] Abnormal Pap Smear 08/15/2024 Refill [facility] [address] [place] [address] Britt Hunter MD Psoriatic arthritis ([facility]) 08/13/2024 10:45 AM EST Office Visit [facility] [address] [place] [phone] Britt Hunter MD Screening for diabetes mellitus (Primary Dx); Encounter for immunization; Screening for lipid disorders; Elevated BP without diagnosis of hypertension; Postcholecystectomy syndrome; Moderate persistent asthma without complication; Chronic nonintractable headache, unspecified headache type; Gastroesophageal reflux disease, unspecified whether esophagitis present; Neurogenic bladder; Mixed stress and urge urinary incontinence; Psoriatic arthritis ([facility]); Vitamin D deficiency; Class 3 severe obesity due to excess calories with serious comorbidity and body mass index (BMI) of 60.0 to 69.9 in adult ([facility]); Impaired fasting glucose; Bipolar II disorder ([facility]); Iron deficiency anemia, unspecified iron deficiency anemia type; Nutritional anemia; Chronic depression; Anxiety disorder, unspecified type; Mastitis; Chronic sinusitis, unspecified location; Allergic rhinitis, unspecified seasonality, unspecified trigger 08/13/2024 Travel 08/08/2024 Telephone [facility] [address] [place] [phone] Tisha Duke MA chart prep 07/31/2024 Refill [facility] [address] [place] [address] Britt Hunter MD Rash 07/29/2024 Patient Outreach [address] [phone] Britt Hunter MD Pre-visit Planning (SDOH Screening negative and Tobacco screening negative) 07/08/2024 Telephone [facility] [address] [place] [phone] Britt Hunter MD Appointment Request 06/21/[address] [phone] Tisha Duke MA chart prep 06/13/2024 Patient Outreach [address] [phone] Britt Hunter MD Pre-visit Planning (SDOH Screening negative and Tobacco screening negative) 06/02/2024 Refill [facility] [address] [place] [address] Britt Hunter MD Psoriatic arthritis ([facility]) from Last 3 Months Immunizations Name Administration Dates Next Due Hep A / Hep B 12/31/2015,11/11/2015 Hep A, Adult 12/31/2015,11/11/2015 Hep B, Adolescent or Pediatric 05/31/2002 Hep B, adult 08/13/2024,12/31/2015,11/11/2015 INFLUENZA INJECTABLE QUADRIV ALANT CCIIV4 MDCK Multi-dose vial 02/18/2022,03/27/2020 Influenza Injectable Quadriv alant Preservative Free IIV4 MDCK 11/09/2021 Influenza injectable quadriv alent IIV4 with preservative 03/21/2018 Influenza injectable quadriv alent preservative free 05/23/2022,03/19/2019 Influenza, IIV3, injectable 04/23/2014, 0,04/23/2007 Influenza, Split (incl. priscila fied surface antigen) 04/05/2012 Influenza, seasonal, injecta ble, preservative free 08/13/2024 Pneumococcal Polysaccharide PPSV23 06/28/2012, Pneumococcal, Unspecified 04/23/2007 TD (adult), 2 Lf tetanus tox oid, preservative free, adsorbed 05/23/2022,05/30/2002,10/24/1995 Tdap 04/05/2012 Varicella 05/31/2002 Zoster, Recombinant 07/29/2019,05/21/2019 Family History Medical History Relation Name Comments Lung cancer Father Cervical cancer Mother bladder cancer Mother at 84 Breast cancer Niece Relation Name Status Comments Father Mother Niece Other Social History Tobacco Use Types Packs/Day Years Used Date Smoking Tobacco: Former Passive Smoke Exposure: Past Smokeless Tobacco: Never Tobacco Cessation:Counseling Given: Not Answered Depression Answer Date Recorded Patient Health Questionnaire-9 [...] Orientation Straight 04/25/2022 10 :14 AM EDT Last Filed Vital Signs Vital Sign Reading [...] 12.8 oz) 08/13/2024 10:55 AM EST Height 160 cm (5' 3 ) 10/27/2022 10:45 AM EDT Body Mass Index 67.1 10/27/2022 10:45 AM EDT Plan of Treatment Upcoming Encounters Date Type Department Care Team (Late st Contact Info) Description 09/11/2024 10:30 AM EDT Procedure Visit [facility] [address] [place] [address] Rosina Barragan, CNM [address] [place] [address] Health Maintenance Due Date Last Done Comments CT Colonography 1968 FIT DNA/Cologuard 1968 FIT 1968 FOBT 1970 Sigmoidoscopy 1970 Pneumococcal Vaccine: 50+ Years (2 of 2 - PCV) 06/28/2013 06/28/2012, 04/23/2007, 04/23/2007 Cervical Cancer Screening 10/28/2023 HPV/Cotest 10/28/2023 10/27/2022, 10/27/2022 Pap Smear 10/28/2023 10/27/2022, 03/27, 10/08/2015 COVID-19 Vaccine ( season) 2024 02/17/2021, 01/27/2021 Colonoscopy 11/09/2024 11/09/2022 Colorectal Cancer Screening 11/09/2024 Depression Monitoring (PHQ-9) 02/10/2025 08/13/2024, 08/13/2024 SDOH Screening 07/29/2025 07/29/2024 Alcohol/Substance Use Screening 08/13/2025 08/13/2024 Depression Screening 08/13/2025 08/13/2024, 08/13/19 Tobacco Screening 08/19/2025 08/19/2024 Mammogram 12/11/2025 12/12/2023, 05/27, 11/18/2020, Additional history exists Lipid Panel 10/05/2027 10/04/2022, 10/24, 09/09/2021, Additional history exists DTaP/Tdap/Td Vaccines (3 - Td or Tdap) 05/23/2032 05/23/2022, 04/05/2012, 05/30/2002, Additional history exists RSV Patients and Patients Aged 60 years or older (1 - 1-dose 75+ series) 09/28/2043 Hepatitis A Vaccines Aged Out 12/31/2015, 12/31/2015, 11/11/2015, Additional history exists No longer eligible based on patient's age to complete this topic Zoster Vaccines Completed 07/29/2019, 05/21/2019 HIV Screening Completed 01/08/2020 Hepatitis C Screening Completed 01/08/2020 Hepatitis B Vaccines Completed 08/13/2024, 12/31/2015, 12/31/2015, Additional history exists Influenza Vaccine Completed 08/13/2024, , 02/18/2022, Additional history exists HIB Vaccines Aged Out No longer eligi ble based on patient's age to complete this topic HPV Vaccines Aged Out No longer eligi ble based on patient's age to complete this topic IPV Vaccines Aged Out No longer eligi ble based on patient's age to complete this topic Meningococcal Vaccine Aged Out No arelis delicia eligible based on patient's age to complete this topic RSV under 20 months Aged Out No longe r eligible based on patient's age to complete this topic Rotavirus Vaccines Aged Out No longer eligible based on patient's age to complete this topic Procedures Procedure Name Priority Date/Time Associated Diagnosis Comments BI MAMMOGRAM SCREENING TOMOSYNTHESIS BILATERAL Routine 12/12/2023 12:25 PM EDT HM COLONOSCOPY Routine 11/09/2022 9:15 AM EDT IMAGE-GUIDED PAP W/AGE BASED SCR PROTOCOLS Routine 10/27/2022 11:16 AM EDT Cervical cancer screening LIPID PANEL WITH REFLEX TO DIRECT LDL Routine 10/04/2022 2:31 PM EDT Impaired fasting glucose ZZZ HISTORICAL HEPATITIS C AB W/REFL TO HCV RNA, QN, PCR Routine 01/08/2020 11:33 AM EDT HIV 1/2 ANTIGEN/ANTIBODY, FOURTH GENERATION W/RFL Routine 01/08/2020 11:33 AM EDT from Last 3 Months or Most Recently Relevant to Health Maintenance Results * BI Mammogram Screening Tomosynthesis Bilateral (12/12/2023 12:25 PM EDT) Anatomical Region Laterality Modality Breast Bilateral Mammography 12/12/2023 12:2 5 PM EDT Narrative 01/11/2024 3:13 PM EDT ? [facility] ? [address] ?[place] [address] ? Mammography Report ? Signed ? Patient: Ortega,Corine M ?MR#: [id number] ?? 9 ? : 1970 ?Acct:[id number] ? Age/Sex: 53 / F ?ADM Date: 12/12/23 ? Loc: HO.MAMMO ? Attending Dr: Britt Hunter MD ? Ordering Physician: Britt Hunter MD ?Results: 1Negative ? Date of Service: 12/12/23 ?Follow Up: 1 Year From Orig ?? inal Mammogram ? Procedure(s): MM tomosynthesis screening BI ?? Accession Number(s): [id number] ? cc: Britt Hunter MD ? EXAMINATION: ?? MM SCREENING DIGITAL BREAST TOMOSYNTHESIS, BILATERAL ? CLINICAL INFORMATION: ? Screening. Asymptomatic. ? COMPARISON: ?? Mammography: This study is compared with prior exams dating back to ?? 2019. ? TECHNIQUE: ?? Digital breast tomosynthesis is performed in both the craniocaudal and ?? mediolateral oblique views along with computer-aided detection (CAD). ?? Synthesized 2D images are generated from the tomosynthesis. ? FINDINGS: ?? The breasts are almost entirely fatty (ACR BI-RADS breast composition ?? Category a). ? There are no significant masses, abnormal calcifications, or other ?? abnormalities. ? MM/MM tomosynthesis screening BI ?? IMPRESSION: ?? No mammographic evidence of malignancy. ? ASSESSMENT: ? BI-RADS BI-RADS 1 - Negative ? RECOMMENDATION: ?? Routine annual mammography screening. ? 1 year F/U ? This examination should not preclude the clinical evaluation of a ?? suspicious palpable abnormality. ? This patient's information was entered into a reminder system with a ?? target due date for their next mammogram. ? Dictated By: ?Lesvia Ruffin MD ? Signed By: ?<Electronically signed by Lesvia Ruffin MD in OV> ? 01/11/241508 ? DD/ 1225 ? TD/TT: ? Showroom Manager: ? Procedure Note Dayanna, Image - 01/11/2024 [facility] [address] [place] [address] Mammography Report Signed Patient: Corine Ortega MMR#: [id number] 9 : 1970Acct:[id number] Age/Sex: 53 / FADM Date: 12/12/23 Loc: [facility] Attending Dr: Britt Hunter MD Ordering Physician: Britt Hunter MDResults: 1Negative Date of Service: 12/12/23Follow Up: 1 Year From Orig ina Mammogram Procedure(s): MM tomosynthesis screening BI Accession Number(s): [id number] cc: Britt Hunter MD EXAMINATION: MM SCREENING DIGITAL BREAST TOMOSYNTHESIS, BILATERAL CLINICAL INFORMATION: Screening. Asymptomatic. COMPARISON: Mammography: This study is compared with prior exams dating back to 2019. TECHNIQUE: Digital breast tomosynthesis is performed in both the craniocaudal and mediolateral oblique views along with computer-aided detection (CAD). Synthesized 2D images are generated from the tomosynthesis. FINDINGS: The breasts are almost entirely fatty (ACR BI-RADS breast composition Category a). There are no significant masses, abnormal calcifications, or other abnormalities. MM/MM tomosynthesis screening BI IMPRESSION: No mammographic evidence of malignancy. ASSESSMENT: BI-RADS BI-RADS 1 - Negative RECOMMENDATION: Routine annual mammography screening. 1 year F/U This examination should not preclude the clinical evaluation of a suspicious palpable abnormality. This patient's information was entered into a reminder system with a target due date for their next mammogram. Dictated By: Lesvia Ruffin MD Signed By: <Electronically signed by Lesvia Ruffin MD in OV> 01/11/24 1509 DD/ 1225 TD/TT: Showroom Manager: us Britt Hunter MD IMG BI PROCEDURES Final Result * Hm Colonoscopy (11/09/2022 9:15 AM EDT) Colonoscopy Normal Normal Oxana Aguiar MD [facility] Edited Resul t - Final * (ABNORMAL) Image-Guided Pap with Age-Based Screening Protocols (10/27/2022 11:16 AM EDT) Comment [employer] Comment: This order for age-based cervical cancer and STI screening follows ACOG guidelines(PB 168, 140, CAU708). See individual assays for performing site location. Clinical Information: None given [facility] LMP: NONE GIVEN [facility] Prev. PAP: NONE GIVEN [facility] Prev. BX: NONE GIVEN [facility] SOURCE: None given [facility] Statement Of Adequacy: [facility] Comment: Satisfactory for evaluation. Endocervical/transformation zone component absent. Interpretation/ Result: Negative for intraepithelial lesion or malignancy. [facility] COMMENT: This Pap test has been evaluated with computer assisted technology. [employer] Cytotechnologis t: [facility] Comment: DMM, CT(ASCP) CT screening location: [address] ??[address] Review Cytotechnologis t: [facility] Comment: JXM, CT(ASCP) CT screening location: [address] ??[address] (Always Message) [facility] Comment: EXPLANATORY NOTE: The Pap is a screening test for cervical cancer. It is not a diagnostic test and is subject to false negative and false positive results. It is most reliable when a satisfactory sample, regularly obtained, is submitted with relevant clinical findings and history, and when the Pap result is evaluated along with historic and current clinical information. HPV nRNA E6/E7 Detected(A) Not Detected [facility] Comment: Methodology: Developer [employer]ocate-Mediated Amplification This assay detects E6/E7 viral messenger RNA (mRNA) from 14 high-risk HPV types (16,18,31,33,35,39,45,51,52,56,58,59,66,68). Cervical sources are required for HPV testing. If a vaginal source from a patient who has had a total hysterectomy with removal of cervix was submitted, please contact the testing laboratory for alternative testing options. For additional information, please refer to http://education.Fancorps/faq/GLU600g6 (This link if provided for information/ educational purposes only.) Pap Vial 10/27/2022 11:1 6 AM EDT 10/28/2022 2:05 AM EDT Rosina Barragan [facility] LAB BLOOD ORDERABLES Bibi holman Result [address], [place] [address] [employer] [address] [place] [phone] * Lipid Panel with Reflex to Direct LDL (10/04/2022 2:31 PM EDT) Cholesterol, Total 165 <200 mg/dL [facility] HDL Cholesterol 60 > OR = 50 mg/dL [facility] Triglycerides 132 <150 mg/dL [facility] LDL Cholesterol 82 mg/dL (calc) [facility] Comment: Reference range: <100 Desirable range <100 mg/dL for primary prevention; ?? <70 mg/dL for patients with CHD or diabetic patients with > or = 2 CHD risk factors. LDL-C is now calculated using the Fausto calculation, which is a validated novel method providing better accuracy than the Friedewald equation in the estimation of LDL-C. Frederic ASHFORD et al. OUMAR. 2013;310(19): 0022-2945 (http://Mob.ly.[employer]/faq/DMY866) Chol/HDLC Ratio 2.8 <5.0 (calc) [facility] Non-HDL Cholesterol 105 <130 mg/dL (calc) [facility] Comment: For patients with diabetes plus 1 major ASCVD risk factor, treating to a non-HDL-C goal of <100 mg/dL (LDL-C of <70 mg/dL) is considered a therapeutic option. 10/04/2022 2:31 PM EDT 10/04/2022 2:31 PM EDT us Britt Hunter MD LAB BLOOD ORDERABLES Final Resul t [address], [place] [address] [facility] [address] [place] [address] * HEPATITIS C AB W/REFL TO HCV RNA, QN, PCR (01/08/2020 11:33 AM EDT) HEPATITIS C ANTIBODY NON-REACT SAI NON-REACT SAI [facility] INDEX 0.01 <1.00 [facility] Comment: ?? HCV antibody was non-reactive. There is no laboratory ?? evidence of HCV infection. ?? In most cases, no further action is required. However, if recent HCV exposure is suspected, a test for HCV RNA (test code 54460) is suggested. ?? For additional information please refer to http://Mob.ly.[employer]anc[employer]/faq/PZK08p3 (This link is being provided for informational/ educational purposes only.) ?? HEPATITIS C ANTIBODY NON-REACT SAI NON-REACT SAI [facility] INDEX 0.01 <1.00 [facility] Comment: ?? HCV antibody was non-reactive. There is no laboratory ?? evidence of HCV infection. ?? In most cases, no further action is required. However, if recent HCV exposure is suspected, a test for HCV RNA (test code 56055) is suggested. ?? For additional information please refer to http://[employer]/faq/EPB58o0 (This link is being provided for informational/ educational purposes only.) ?? HEPATITIS C ANTIBODY NON-REACT SAI NON-REACT SAI [facility] INDEX 0.01 <1.00 [facility] Comment: ?? HCV antibody was non-reactive. There is no laboratory ?? evidence of HCV infection. ?? In most cases, no further action is required. However, if recent HCV exposure is suspected, a test for HCV RNA (test code 50275) is suggested. ?? For additional information please refer to http://[employer]/faq/IJH09v1 (This link is being provided for informational/ educational purposes only.) ?? 01/08/2020 11:3 3 AM EDT Britt Hunter MD HISTORICAL/NON ORDERABLE LABS Fi nal Result [facility] [address] * HIV 1/2 ANTIGEN/ANTIBODY,FOURTH GENERATION W/RFL (01/08/2020 11:33 AM EDT) HIV-1/2 ANTIGEN AND ANTIBODIES, 4TH GENERATION W/ REFLEX NON-REACT SAI NON-REACT SAI [facility] Comment: HIV-1 antigen and HIV-1/HIV-2 antibodies were not detected. There is no laboratory evidence of HIV infection. ?? PLEASE NOTE: This information has been disclosed to you from records whose confidentiality may be protected by state law. ??If your state requires such protection, then the state law prohibits you from making any further disclosure of the information without the specific written consent of the person to whom it pertains, or as otherwise permitted by law. A general authorization for the release of medical or other information is NOT sufficient for this purpose. ? For additional information please refer to http://Mob.ly.[employer]/faq/IZB603 (This link is being provided for informational/ educational purposes only.) ? The performance of this assay has not been clinically validated in patients less than 2 years old. ?? HIV-1/2 ANTIGEN AND ANTIBODIES, 4TH GENERATION W/ REFLEX NON-REACT SAI [facility]-REACT [facility] Comment: HIV-1 antigen and HIV-1/HIV-2 antibodies were not detected. There is no laboratory evidence of HIV infection. ?? PLEASE NOTE: This information has been disclosed to you from records whose confidentiality may be protected by state law. ??If your state requires such protection, then the state law prohibits you from making any further disclosure of the information without the specific written consent of the person to whom it pertains, or as otherwise permitted by law. A general authorization for the release of medical or other information is NOT sufficient for this purpose. ? For additional information please refer to http://[employer]/faq/KQL530 (This link is being provided for informational/ educational purposes only.) ? The performance of this assay has not been clinically validated in patients less than 2 years old. ?? HIV-1/2 ANTIGEN AND ANTIBODIES, 4TH GENERATION W/ REFLEX NON-REACT SAI [facility]ACT [facility] Comment: HIV-1 antigen and HIV-1/HIV-2 antibodies were not detected. There is no laboratory evidence of HIV infection. ?? PLEASE NOTE: This information has been disclosed to you from records whose confidentiality may be protected by state law. ??If your state requires such protection, then the state law prohibits you from making any further disclosure of the information without the specific written consent of the person to whom it pertains, or as otherwise permitted by law. A general authorization for the release of medical or other information is NOT sufficient for this purpose. ? For additional information please refer to http://[employer]/faq/KFQ388 (This link is being provided for informational/ educational purposes only.) ? The performance of this assay has not been clinically validated in patients less than 2 years old. ?? 01/08/2020 11:3 3 AM EDT Britt Hunter MD LAB BLOOD ORDERABLES Final Resul t [facility] [address] [place] [address], from Last 3 Months or Most Recently Relevant to Health Maintenance Insurance [facility] [employer] MEDICARE Care Teams Plant Operations Worker Relationship Specialty Start Date End Date Britt Hunter MD [address] [place] [phone] PCP - General Family Medicine 06/26/18
--- OUTSIDE RECORDS SUMMARY | 2024-08-27 08:59 | XMS_ITS | Encounter Summary ---
Author Organization [employer] Address [address] [facility] [address] [place] [address] Care Team Providers Care Doorkeeper Name Role Phone Britt Hunter MD Primary Care Provider [phone] Reason for Visit * Reason Comments Med Refill Encounter Details Date Type Department Care Team ([facility] st Contact Info) Description 04/13/2023 Refill [facility] [address] [place], [place] [phone] Estephania Mike FNP [address] [place] [address] Social History Tobacco Use Types Packs/Day Years Used Date Smoking Tobacco: Former Passive Smoke Exposure: Past Smokeless Tobacco: Never Housing Stability Answer Date Recorded What is your housing situation today? I have gisellewilly zelaya 04/13/[address] you [...] off services in your home? No 04/13/2023 Comments No Sex and Gender Information Value [...] Description 09/11/2024 10:30 AM EDT Procedure Visit [facility] [address] [place], [place] [phone] Rosina Barragan CNM [address] [place] [address] documented as of this encounter Visit Diagnoses Not on filedocumented in this encounter Care Teams Doorkeeper Relationship Specialty Start Date End Date Britt Hunter MD [address] [place] [address] PCP - General Family Medicine 06/26/18 documented as of this encounter
[2024-12-16 07:41] VITALS: BMI 65.0
[2024-12-16 10:55] VITALS: BP 126/75; PULSE 89; RESP 20; TEMP 36.4; O2SAT 97; BMI 62.6
[2024-12-16] MEDS: Lactated Ringers 1,000 ML 50 ML IVCONT (11:05)
--- NOTE | 2024-12-16 11:17 | MHC.SHP ---
Pre-Procedural Eval Section A - 24 Hr Update-Section A only Date of Service: 12/16/24 The patient is an INPATIENT: No The patient has been examined within 24 hours of the surgical procedure. The History & Physical has been completed within 30 days and I have reviewed it.: No Section B - Complete if H&P > 30 days Chief Complaint: Surveillance for colon polyps Relevant Family History (Specify if Yes): No Relevant Social History: None Present Medications: see Short Stay Collaborative assessment Medical History: Significant History (History of COVID-19 History of anxiety Hx of bipolar disorder Depression Anemia GERD (gastroesophageal reflux disease) Psoriatic arthritis) History of Previous Operations: Relevant previous surgery/procedure and date(s) (History of hand surgery, history of colonoscopy) Allergies: Allergies Allergy/AdvReac Type Severity Reaction Status Date / Time Seasonal Allergies Allergy Intermediate sinusitis Verified 05/01/24 14:06 Review of Systems Sugical H&P ROS: Negative: Constitution, Cardiovascular, Respiratory and Gastrointestinal Exam Surgical H&P Exam: Normal: Heart, Normal: Lungs, Normal: Extremities and Normal: Abdomen Plan Diagnosis/Plan: Unchanged I have reviewed the history and physical and performed a pertinent physical examination on my patient. No changes have occurred unless specified. Time Spent With Patient Time: Total time managing care of this patient today ____ minutes.
--- NOTE | 2024-12-16 11:52 | HO.ANESPROP2 ---
[facility] Active Problems Active Problems: All Active Problems (Updated 12/16/24 @ 10:51 by Alyce Pérez RN) Throat irritation (Acute) Tubular adenoma of colon (Acute) Macrocytosis (Acute) Pre-op examination (Acute) Excessive daytime sleepiness (Acute) Sleep disorder (Acute) Nocturia (Acute) Snoring (Acute) Colon cancer screening (Acute) Post-cholecystectomy syndrome (Acute) GERD (gastroesophageal reflux disease) (Acute) Past Medical History Medical History (Updated 12/16/24 @ 10:51 by Alyce Pérez RN) History of trigger finger Asthma Macrocytosis Anxiety Bipolar disorder Depression Anemia GERD (gastroesophageal reflux disease) Psoriatic arthritis Family History Family History Mother Bladder cancer Heart problem Rheumatoid arthritis Father Arthritis Family history of problems with anesthesia: No Surgical History Surgical History (Updated 12/16/24 @ 10:51 by Alyce Pérez RN) Hx of colonoscopy Hx of hand surgery History of Problems with Anesthesia: No Social History Social History Household Members: Children Household Members Other:: daughter Alcohol intake: current Alcohol intake frequency: does not drink Patient Tobacco Use Status: Never used Tobacco Have you been hit, kicked, punched, or otherwise hurt by someone within the past year? If so, by whom?: No Are you DNR?: No Advance Directives: No Advance Directives Information Provided: Yes Current occupational status: disabled Meds Allergies Allergy/AdvReac Type Severity Reaction Status Date / Time Seasonal Allergies Allergy Intermediate sinusitis Verified 05/01/24 14:06 Active Medications: Current Medications Lactated Ringer's (Lr) 1,000 mls @ 50 mls/hr IVCONT .Q20H GLORIA Last Admin: 12/16/24 11:05 Dose: 50 mls/hr Home Medications ?Medication ?Instructions ?Recorded ?Confirmed ?Last Taken ?Type betamethasone dipropionate 0.05 % 1 appl topical DAILY 08/27/20 11/02/22 Unknown History topical ointment bupropion HCl 150 mg 24 hr tablet, 150 mg PO QAM 08/27/20 11/02/22 Unknown History extended release cetirizine 10 mg capsule (All Day 10 mg PO DAILY PRN Itching 08/27/20 05/01/24 12/16/24 History Allergy (cetirizine)) ferrous sulfate 325 mg (65 mg 325 mg PO BID 08/27/20 05/01/24 Unknown History iron) tablet folic acid 1 mg tablet 1 mg PO DAILY 08/27/20 05/01/24 Unknown History mecobalamin (vitamin B12) 1,000 1,000 mcg PO DAILY 08/27/20 11/02/22 Unknown History mcg chewable tablet melatonin 5 mg capsule 5 mg PO BEDTIME 08/27/20 05/01/24 Unknown History montelukast 10 mg tablet 10 mg PO DAILY 08/27/20 05/01/24 Unknown History albuterol sulfate 90 mcg/actuation 2 puff inhalation Q4-6H PRN 10/06/20 05/01/24 12/16/24 History aerosol inhaler (Ventolin HFA) Shortness Of Breath oxybutynin chloride 15 mg 15 mg PO DAILY 09/29/22 05/01/24 Unknown History tablet,extended release 24 hr venlafaxine 100 mg tablet 100 mg PO BID 09/29/22 05/01/24 Unknown History cholecalciferol (vitamin D3) 50 50 mcg PO DAILY 05/23/23 05/01/24 Unknown History mcg (2,000 unit) capsule (Vitamin D3) cyanocobalamin (vitamin B-12) 1,000 mcg PO DAILY 05/23/23 05/01/24 Unknown History 1,000 mcg tablet fluticasone propionate 44 1 inh inhalation DAILY 05/23/23 05/01/24 12/16/24 History mcg/actuation HFA aerosol inhaler (Flovent HFA) fluticasone propionate 50 1 spray intranasal DAILY 05/23/23 05/01/24 12/16/24 History mcg/actuation nasal spray,suspension etanercept 50 mg/mL (1 mL) 50 mg subcut QWEEK 12/26/23 05/01/24 Unknown History subcutaneous pen injector (Enbrel SureClick) multivitamin with minerals 1 tab PO DAILY 12/26/23 Unknown History (Hair,Skin and Nails tablet) topiramate 100 mg tablet 100 mg PO DAILY 12/26/23 05/01/24 12/16/24 History Exam Height,Weight and Vital Signs: n Height 5 ft 4 in Weight 365 lb Last Vital Signs Temp 97.5 F 12/16/24 10:55 Pulse 89 12/16/24 10:55 Resp 20 12/16/24 10:55 BP 126/75 12/16/24 10:55 Pulse Ox 97 12/16/24 10:55 O2 Del Method Room Air 12/16/24 10:55 Airway Mallampati Class: III TM Dist: >3cm Neck ROM: Full Loose/Missing/Broken Teeth: No Heart: RRR Lungs: CTA Assessment and Plan Assessment Anesthesia Assessment: Anesthesia Plan Discussed Final Anesthetic Review Family History of Problems with Anesthesia: No History of Problems with Anesthesia: No ASA Class: III Patient Risk: Low Procedure Risk: Low Anesthetic Plan Anesthetic Plan: GA Disposition: Standard PACU
--- NOTE | 2024-12-16 13:41 | HO.OPN-COLON ---
Colonoscopy Operative Note Operative Note Date of Service: 12/16/24 Narrative: COLONOSCOPY TILL CECUM WITH BIOPSIES AND SNARE POLYPECTOMY Pre-op diagnosis: Surveillance for colon polyps. Post-op diagnosis:? Colon polyps, Diverticulosis, hemorrhoids Endoscopist:? Oxana Aguiar MD Anesthesia:?MAC Consent: Indications for the procedure and potential complications of bleeding, perforation, reaction to medications and missed diagnosis were discussed with the patient and informed consent was obtained. Instrument: Olympus CF H 190 L variable stiffness adult colonoscope Monitoring: Vital signs and clinical assessment, intermittent blood pressure monitoring, continuous EKG monitoring, Pulse oximetry and Carbon Dioxide monitoring were done throughout the procedure. Please see anesthesia flowsheet. Colon withdrawl time was 20 minutes. Procedure: The patient was placed in the left lateral decubitis position and pre-procedure medications were administered. After a digital rectal examination of the ano-rectum, the video colonoscope was inserted into the rectum and advanced through the colon to the ileocecal valve. Cecum was partially visualized across the ileocecal valve. The colonoscope was slowly withdrawn in a retrograde panoramic fashion and the colon mucosa was carefully examined including a retroflexed view of the rectum. Findings and interventions are described below. Procedure Difficulty: Colon was long and tortuous and there was some loop formation. LLQ pressure was applied and cecum was partially visualized across the ileocecal valve Findings: Terminal Ileum: Not evaluated Cecum: Partially visualized across the ileocecal valve Ascending Colon: Normal Transverse Colon: Two 4-5 mm sessile polyps - removed with a cold snare and a cold biopsy. Descending Colon: Normal Sigmoid Colon: Moderate diverticulosis Rectum: Normal Ano-rectum: Moderate internal hemorrhoids Colon preparation: Good after copious irrigation. [place] Bowel Preparation Scale Right colon; 2 Transverse colon: 2 Left colon; 2 (0 = Unprepared colon segment with mucosa not seen due to solid stool that cannot be cleared. 1 = Portion of mucosa of the colon segment seen, but other areas of the colon segment not well seen due to staining, residual stool and/or opaque liquid. 2 = Minor amount of residual staining, small fragments of stool and/or opaque liquid, but mucosa of colon segment seen well. 3 = Entire mucosa of colon segment seen well with no residual staining, small fragments of stool or opaque liquid) Impression and Post Procedure Diagnosis: Colonoscopy Findings: Two small polyps were removed Moderate diverticulosis seen in the sigmoid colon Small hemorrhoids on antegrade exam. Plan: Pt has a FU appointment on 01/07/25 with Melanie Schofield NP. Repeat Colonoscopy in 5 years if polyps are adenomatous and due to history of adenomatous colon polyps.. (Dulcolax 2 tab daily x 5 days prior to next colon appt and adult colonoscope and abdominal binder for future colonoscopies) Above findings were reviewed with the patient and relevant handouts were given and the discharge area.
[2024-12-16 13:48] VITALS: BP 148/86; PULSE 97; RESP 20; TEMP 36.7; O2SAT 100
[2024-12-16 14:03] VITALS: BP 134/85; PULSE 89; RESP 20; TEMP 36.3; O2SAT 99
== END 2024-12-16 15:52 | disposition home or self-care (01) ==
PROVIDERS: PCP Family Medicine; Visit Provider Internal Medicine Gastroenterology
PROC: 0DJD8ZZ Inspection of Lower Intestinal Tract, Via Natural or Artificial Opening Endoscopic (ICD-10-PCS; CPT 45378; principal; 2024-12-16 11:50)
DX: Z12.11 Encounter for screening for malignant neoplasm of colon (principal); D12.3 Benign neoplasm of transverse colon; K56.2 Volvulus; K57.30 Diverticulosis of large intestine without perforation or abscess without bleeding; K64.8 Other hemorrhoids; Z86.0101 Personal history of adenomatous and serrated colon polyps; K21.9 Gastro-esophageal reflux disease without esophagitis; K91.5 Postcholecystectomy syndrome; G47.9 Sleep disorder, unspecified; J45.909 Unspecified asthma, uncomplicated; D64.9 Anemia, unspecified; Z79.899 Other long term (current) drug therapy
CPT/HCPCS: 45385; 45380; 88305; J2003; J2250; J2405; J2704; J3010

== ENCOUNTER → 2024-12-16 09:53 | Outpatient (BNV) | payer MEDICARE, MEDICAID, SELFPAY | PROVIDERS: PCP Family Medicine; Visit Provider Internal Medicine Gastroenterology | DX: Z12.11 Encounter for screening for malignant neoplasm of colon (principal); Z86.0109 Personal history of other colon polyps; K63.5 Polyp of colon; K57.90 Diverticulosis of intestine, part unspecified, without perforation or abscess without bleeding; K64.8 Other hemorrhoids | CPT/HCPCS: 45380; 45385 ==

== ENCOUNTER 2025-02-11 13:04 | Outpatient (REF) | payer MEDICARE, MEDICAID, SELFPAY ==
--- NOTE | ~2025-02-11 | MM_ITS ---
EXAMINATION: MM SCREENING DIGITAL BREAST TOMOSYNTHESIS, BILATERAL CLINICAL INFORMATION: Screening. Asymptomatic. COMPARISON: Mammography: Comparison is made with available priors TECHNIQUE: Digital breast mammography with tomosynthesis is performed in both the craniocaudal and mediolateral oblique views along with computer-aided detection (CAD). FINDINGS: The breasts are almost entirely fatty (ACR BI-RADS breast composition Category a). There are no significant masses, abnormal calcifications, or other abnormalities. MM/MM tomosynthesis screening BI IMPRESSION: No mammographic evidence of malignancy. ASSESSMENT: BI-RADS BI-RADS 1 - Negative RECOMMENDATION: Routine annual mammography screening. 1 year F/U This examination should not preclude the clinical evaluation of a suspicious palpable abnormality. This patient's information was entered into a reminder system with a target due date for their next mammogram. Electronically signed by: Carissa Ayala DO 02/13/2025 11:20 AM EDT
--- OUTSIDE RECORDS SUMMARY | 2025-02-11 14:12 | XMS_ITS | Encounter Summary ---
Author Organization [employer] Address 75 [facility] 7t [place] [address] Care Team Providers Care Field Human Resources Manager Name Role Phone Britt Hunter MD Primary Care Provider [phone] Reason for Visit * Reason Onset Date Comments Letter for School/Work 08/15/2023 Encounter Details Date Type Department Care Team ([facility] st Contact Info) Description 08/15/2023 Telephone [facility] MEDICINE [address] [place], [place] [phone] Britt Hunter MD [address] [place], [place] [phone] Letter for School/Work Social History Tobacco Use [...] documented as of this encounter Care Teams Field Human Resources Manager Relationship Specialty Start Date End Date Britt Hunter MD [address] [place] [address] PCP - General Family Medicine 06/26/18 documented as of this encounter
== END 2025-02-11 13:05 | disposition home or self-care (01) ==
LOC: HO.MAMMO 13:04
PROVIDERS: PCP Family Medicine; Visit Provider Family Medicine
DX: Z12.31 Encounter for screening mammogram for malignant neoplasm of breast (principal)
CPT/HCPCS: 77063; 77067

== ENCOUNTER → 2025-02-11 13:30 | Outpatient (BNV) | payer MEDICARE, MEDICAID, SELFPAY | PROVIDERS: PCP Family Medicine; Visit Provider Internal Medicine | DX: Z12.31 Encounter for screening mammogram for malignant neoplasm of breast (principal) | CPT/HCPCS: 77063; 77067 ==

== ENCOUNTER 2025-04-07 14:03 | Outpatient (REF) | payer MEDICARE, MEDICAID, SELFPAY ==
--- OUTSIDE RECORDS SUMMARY | 2025-04-07 13:15 | XMS_ITS | Encounter Summary ---
Author Organization [employer] Address [address] [facility] 7t [place] [address] Care Team Providers Care Superintendent Local Name Role Phone Britt Hunter MD Primary Care Provider Encounter Details Date Type Department Care Team ([facility] Contact Info) Description 04/07/2025 1:15 PM EDT Office Visit [facility] MEDICINE [address] [place], [place] [phone] Britt Hunter MD [address] [place], [place] [phone] Dizziness (Primary Dx); Vitamin D deficiency; Impaired fasting glucose; Nutritional anemia; Iron deficiency anemia, unspecified iron deficiency anemia type; Encounter for immunization Social History Tobacco Use Types Packs/Day Years [...] Sign Reading Time Taken Comments Blood Pressure 130/80 04/07/2025 1:15 PM EDT Pulse 92 04/07/2025 1:15 PM EDT Temperature 36.1 C (96.9 F) 04/07/2025 1:15 PM EDT Respiratory Rate 14 04/07/2025 1:15 PM EDT Oxygen Saturation 100% 04/07/2025 1:15 PM EDT Inhaled Oxygen Concentration - - Weight 157 kg (346 lb 12.8 oz) 04/07/2025 1:15 P M EDT Height 162.6 cm (5' 4 ) 04/07/2025 1:15 PM EDT Body Mass Index 59.53 04/07/2025 1:15 PM EDT documented in this encounter Plan of Treatment Scheduled Orders Name Type Priority Associated Diagnoses Orde r Schedule Ferritin Lab Routine Dizziness Iron deficiency anemia, unspecified iron deficiency anemia type Expected: 04/07/2025 (Approximate), Expires: 04/07/2026 Iron And Total Iron Binding Capacity Lab Routine Dizziness Iron deficiency anemia, unspecified iron deficiency anemia type Expected: 04/07/2025, Expires: 04/07/2026 Reticulocyte Count Lab Routine Dizziness Expected: 04/07/2025, Expires: 04/07/2026 Vitamin B12 (Cobalamin) and Folate Panel, Serum Lab Routine Dizziness Expected: 04/07/2025 (Approximate), Expires: 04/07/2026 TSH with Reflex to Free T4 Lab Routine Dizziness Nutritional anemia Expected: 04/07/2025 (Approximate), Expires: 04/07/2026 CBC auto differential Lab Routine Dizziness Iron deficiency anemia, unspecified iron deficiency anemia type Expected: 04/07/2025 (Approximate), Expires: 04/07/2026 documented as of this encounter Visit Diagnoses Diagnosis Dizziness- Primary Dizziness and giddiness Vitamin D deficiency Impaired fasting glucose Nutritional anemia Unspecified deficiency anemia Iron deficiency anemia, unspecified iron deficiency anemia type Encounter for immunization documented in this encounter Additional Health Concerns Assessment Noted Time PHQ-9 Depression Total Score: 10 08/13/ 025 11:10 AM EST documented as of this encounter Care Teams Superintendent Local Relationship Specialty Start Date End Date Britt Hunter MD [address] [place] [phone] PCP - General Family Medicine 06/26/18 documented as of this encounter
--- OUTSIDE RECORDS SUMMARY | 2025-04-07 14:06 | XMS_ITS | Encounter Summary ---
Author Organization [employer] Address [address] [facility] 7t [place] [address] Care Team Providers Care Infrastructure Project Manager Name Role Phone Britt Hunter MD Primary Care Provider [phone] Reason for Visit * Reason Onset Date Comments Letter for School/Work 08/15/2023 Encounter Details Date Type Department Care Team ([facility] st Contact Info) Description 08/15/2023 Telephone [facility] MEDICINE [address] [place], [place] [phone] Britt Hunter MD [address] [place], [place] [phone] Letter for School/Work Social History Tobacco Use [...] documented as of this encounter Care Teams Infrastructure Project Manager Relationship Specialty Start Date End Date Britt Hunter MD [address] [place] [address] PCP - General Family Medicine 06/26/18 documented as of this encounter
--- OUTSIDE RECORDS SUMMARY | 2025-04-07 14:06 | XMS_ITS | Encounter Summary ---
Author Organization [employer] Address 75 [facility] 7t [place] [address] Care Team Providers Care Bar Hostess Name Role Phone Britt Hunter MD Primary Care Provider [phone] Encounter Details Date Type Department Care Team (Late st Contact Info) Description 08/02/2022 Orders Only [facility] CHC MED & PEDS [address] [place] [address] Karin Bentley LPN Social History Tobacco Use [...] on filedocumented in this encounter Care Teams Bar Hostess Relationship Specialty Start Date End Date Britt Hunter MD [address] [place] [address] PCP - General Family Medicine 06/26/18 documented as of this encounter
--- OUTSIDE RECORDS SUMMARY | 2025-04-07 14:06 | XMS_ITS | Encounter Summary ---
Author Organization [employer] Address [address] [facility] 7t [place] [address] Care Team Providers Care Squash Centre Manager Name Role Phone Britt Hunter MD Primary Care Provider [phone] Encounter Details Date Type Department Care Team (Late st Contact Info) Description 08/31/2022 Orders Only [facility] CHC MED & PEDS [address] [place] [address] Karin Bentley LPN Social History Tobacco Use [...] on filedocumented in this encounter Care Teams Squash Centre Manager Relationship Specialty Start Date End Date Britt Hunter MD [address] [place] [address] PCP - General Family Medicine 06/26/18 documented as of this encounter
--- OUTSIDE RECORDS SUMMARY | 2025-04-07 14:07 | XMS_ITS | Encounter Summary ---
Author Organization [employer] Address [address] [facility] 7t [place] [address] Care Team Providers Care Sack Cleaner Name Role Phone Britt Hunter MD Primary Care Provider [phone] Reason for Visit * Reason Onset Date Comments Nurse Triage 03/12/2025 Encounter Details Date Type Department Care Team ([facility] st Contact Info) Description 03/12/2025 Telephone [facility] MEDICINE [address] [place], [place] [phone] Britt Hunter MD [address] [place], [place] [phone] Nurse Triage Social History Tobacco Use Types Packs/Day Years [...] encounter Miscellaneous Notes * Telephone Encounter - Verito Galvez RN - 03/12/2025 3:50 PM EDT Triage call Pt reports vaginal irritation for last 2 days and felt a soft, pea sized lump near the vaginal area. Pt reports it is painful when touched and is soft. Neg for itchiness. Pt requests to see SPENCER Barragan. AsK apt 03/18/25 @ 315pm. Pt agrees with this disposition and insurance is verified as active. Protocol Used: Vaginal Discharge (Adult) Protocol-Based Disposition: See in Office or Video Visit Today Override (Final) Disposition: See in Office or Video Visit within 2 Weeks Override Reason: Desired specific provider Positive Triage Question: * Patient wants to be seen * All higher-acuity triage questions were negative Care Advice Discussed: * Reasons To Call Back - Discharge becomes yellow or green - Discharge becomes foul smelling or itchy - Fever or abdomen pain occur - You become worse * Telephone Encounter - Janene Uriarte - 03/12/2025 3:31 PM EDT Symptoms: Vaginal Symptoms - Not Bleeding, Skin Lump Outcome: Schedule an appointment to be seen within 24 hours Reason: Caller denied all higher acuity questions The caller accepted this outcome. Contact pt at [phone] documented in this encounter Plan of Treatment Not on file documented as of this encounter Visit Diagnoses Not on filedocumented in this encounter Additional Health Concerns Assessment Noted Time PHQ-9 Depression Total Score: 10 08/13/ 025 11:10 AM EST documented as of this encounter Care Teams Sack Cleaner Relationship Specialty Start Date End Date Britt Hunter MD [address] [place] [phone] PCP - General Family Medicine 06/26/18 documented as of this encounter
--- OUTSIDE RECORDS SUMMARY | 2025-04-07 14:07 | XMS_ITS | Encounter Summary ---
Author Organization [employer] Address 75 [facility] 7t [place] [address] Care Team Providers Care Steel Burner Name Role Phone Britt Hunter MD Primary Care Provider [phone] Encounter Details Date Type Department Care Team ([facility] st Contact Info) Description 07/18/2022 Orders Only [facility] MEDICINE [address] [place] [address] Michelle Gottlieb LPN Social History Tobacco Use [...] on filedocumented in this encounter Care Teams Steel Burner Relationship Specialty Start Date End Date Britt Hunter MD [address] [place] [address] PCP - General Family Medicine 06/26/18 documented as of this encounter
--- OUTSIDE RECORDS SUMMARY | 2025-04-07 14:07 | XMS_ITS | Encounter Summary ---
Author Organization [employer] Address 75 [facility] 7t [place] [address] Care Team Providers Care Precast Concrete Products Installer Name Role Phone Britt Hunter MD Primary Care Provider [phone] Reason for Visit * Reason Onset Date Comments Appointment Request 10/07/2024 Encounter Details Date Type Department Care Team ([facility] Contact Info) Description 10/07/2024 Telephone [facility] MEDICINE [address] [place], [place] [phone] Britt Hunter MD [address] [place], [place] [phone] Appointment Request Social History Tobacco Use Types [...] encounter Miscellaneous Notes * Telephone Encounter - Fiorella Trevizo - 10/07/2024 3:53 PM EDT Tc from pt requesting schedule OV appointment with pcp. Recall 12/11 documented in this encounter Plan of Treatment Not on file documented as of this encounter Visit Diagnoses Not on filedocumented in this encounter Additional Health Concerns Assessment Noted Time PHQ-9 Depression Total Score: 10 08/13/ 025 11:10 AM EST documented as of this encounter Care Teams Precast Concrete Products Installer Relationship Specialty Start Date End Date Britt Hunter MD [address] [place] [id number] PCP - General Family Medicine 06/26/18 documented as of this encounter
--- OUTSIDE RECORDS SUMMARY | 2025-04-07 14:07 | XMS_ITS | Encounter Summary ---
Author Organization [employer] Address [address] [place] [address] 7t [place] [address] Care Team Providers Care Experience Planning Strategist Name Role Phone Britt Hunter MD Primary Care Provider [phone] Reason for Visit * Reason Comments Med Refill Encounter Details Date Type Department Care Team ([facility] st Contact Info) Description 03/07/2023 Refill [facility] MEDICINE [address] [place] [address] [phone] Britt Hunter MD [address] [place] [phone] Social History Tobacco Use Types Packs/Day Years [...] on filedocumented in this encounter Care Teams Experience Planning Strategist Relationship Specialty Start Date End Date Britt Hutner MD [address] [place] [address] [phone] PCP - General Family Medicine 06/26/18 documented as of this encounter
--- OUTSIDE RECORDS SUMMARY | 2025-04-07 14:07 | XMS_ITS | Encounter Summary ---
Author Organization [employer] Address 75 [facility] 7t [place] [address] Care Team Providers Care Can Sealer Name Role Phone Britt Hunter MD Primary Care Provider [phone] Reason for Visit * Reason Onset Date Comments chartprep 04/04/2025 Encounter Details Date Type Department Care Team ([facility] Contact Info) Description 04/04/2025 Telephone [facility] MEDICINE [address] [place], [place] [phone] Britt Hunter MD [address] [place] [address] chartprep Social History Tobacco Use Types Packs/Day Years [...] encounter Miscellaneous Notes * Telephone Encounter - Rachel Nino MA - 04/04/2025 10:35 AM EDT ..Chart Prep Labs: done Images: done Mammo Vaccines due: Covid Due, PCV20 Due, and Flu Due Referrals: Not Applicable Screenings: Colonoscopy Overdue care gaps: SDOH, PHQ9, and GAD7 documented in this encounter Plan of Treatment Not on file documented as of this encounter Visit Diagnoses Not on filedocumented in this encounter Additional Health Concerns Assessment Noted Time PHQ-9 Depression Total Score: 10 025 11:10 AM EST documented as of this encounter Care Teams Can Sealer Relationship Specialty Start Date End Date Britt Hunter MD [address] [place] [address] PCP - General Family Medicine 06/26/18 documented as of this encounter
--- OUTSIDE RECORDS SUMMARY | 2025-04-07 14:07 | XMS_ITS | Encounter Summary ---
Author Organization [employer] Address 75 [facility] 7t [place] [address] Care Team Providers Care Cabin Cleaning Supervisor Name Role Phone Britt Hunter MD Primary Care Provider [phone] Reason for Visit * Reason Onset Date Comments PT-1 11/06/2024 Encounter Details Date Type Department Care Team ([facility] st Contact Info) Description 11/06/[address] [facility] MEDICINE 230 [place], [place] [phone] Britt Hunter MD 230 [place], [place] [phone] PT-1 Social History Tobacco Use Types Packs/Day Years [...] encounter Miscellaneous Notes * Telephone Encounter - Elinor Torres - 11/06/2024 2:42 PM EDT Patient calling requesting PT1 Home Address verified: Y/N: Yes Provider name or facility name: [address] [place] [address] [facility] [address] Escort needed: Y/N: Yes Do you have a wheelchair: Y/N: No If yes- Manual or electric: Visits: ( 2x monthly) documented in this encounter Plan of Treatment Not on file documented as of this encounter Visit Diagnoses Not on filedocumented in this encounter Additional Health Concerns Assessment Noted Time PHQ-9 Depression Total Score: 10 025 11:10 AM EST documented as of this encounter Care Teams Cabin Cleaning Supervisor Relationship Specialty Start Date End Date Britt Hutner MD [address] [place] [address] PCP - General Family Medicine 06/26/18 documented as of this encounter
--- OUTSIDE RECORDS SUMMARY | 2025-04-07 14:07 | XMS_ITS | Encounter Summary ---
Author Organization [employer] Address 75 [facility] 7t [place] [address] Care Team Providers Care Final Tester Name Role Phone Britt Hunter MD Primary Care Provider [phone] Reason for Visit * Reason Onset Date Comments PT1 10/07/2024 Encounter Details Date Type Department Care Team ([facility] Contact Info) Description 10/07/2024 Telephone [facility] MEDICINE [address] [place], [place] [phone] Britt Hunter MD [address] [place], [place] [phone] PT1 Social History Tobacco Use Types Packs/Day Years [...] Telephone Encounter - Fiorella Trevizo - 10/07/2024 3:48 PM EDT Patient calling requesting PT1 Home Address verified: Y/N: Yes Provider name or facility name: [address] [place] [id number] - Dielectric Press Operator Escort needed: Y/N: Yes Do you have a wheelchair: Y/N: No If yes- Manual or electric: N/A Visits: (2x monthly) documented in this encounter Plan of Treatment Not on file documented as of this encounter Visit Diagnoses Not on filedocumented in this encounter Additional Health Concerns Assessment Noted Time PHQ-9 Depression Total Score: 10 08/13/ 025 11:10 AM EST documented as of this encounter Care Teams Final Tester Relationship Specialty Start Date End Date Britt Hunter MD [address] [place] [phone] PCP - General Family Medicine 06/26/18 documented as of this encounter
--- OUTSIDE RECORDS SUMMARY | 2025-04-07 14:07 | XMS_ITS | Encounter Summary ---
Author Organization [employer] Address 75 [facility] 7t [place] [address] Care Team Providers Care It Service Technician Name Role Phone Britt Hunter MD Primary Care Provider [phone] Reason for Visit * Reason Onset Date Comments Appointment Request 07/08/2024 Encounter Details Date Type Department Care Team ([facility] Contact Info) Description 07/08/2024 Telephone [facility] MEDICINE [address] [place], [place] [phone] Britt Hunter MD [address] [place], [place] [phone] Appointment Request Social History Tobacco Use Types [...] physical with pcp, Please contact pt at [phone]. Pt 1/2 documented in this encounter Plan of Treatment Not on file documented as of this encounter Visit Diagnoses Not on filedocumented in this encounter Additional Health Concerns Assessment Noted Time PHQ-9 Depression Total Score: 5 06/05/20 23 1:12 PM EST documented as of this encounter Care Teams It Service Technician Relationship Specialty Start Date End Date Britt Hunter MD [address] [place] [address] PCP - General Family Medicine 06/26/18 documented as of this encounter
--- OUTSIDE RECORDS SUMMARY | 2025-04-07 14:07 | XMS_ITS | Encounter Summary ---
Author Organization [employer] Address 75 [facility] 7t [place] [address] Care Team Providers Care Chinese Herbalist Name Role Phone Britt Hunter MD Primary Care Provider [phone] Reason for Visit * Reason Onset Date Comments Nurse Triage 10/30/2024 Encounter Details Date Type Department Care Team ([facility] st Contact Info) Description 10/30/2024 Telephone [facility] MEDICINE [address] [place], [place] [phone] Britt Hunter MD [address] [place], [place] [phone] Nurse Triage Social History Tobacco Use Types [...] Telephone Encounter - Verito Galvez RN - 10/30/2024 10:42 AM EDT Triage call Pt reports falling in parking lot while heading to car several days ago. Pt reports left knee is weak and Pt unknowingly walked into a pool of mud with leaves , slipped and fell. Pt reports going down on left knee and using right hand to break the fall. No head injury. Pt reports that since that time Pt has had pain in right hand especially thumb area and left knee. Neg for swelling, redness. Pt has been taking tylenol arthritis for pain relief. Pt is advised to try ice/heat, keep supporting extremities while at rest with pillow/leg rest. Pt does walk but, goes slowly to ease discomfort. Pt is advised to come to [facility] today open till 8pm but, doesn't have a ride. Pt is given hours [facility] Mon open 830am - 400pm and Monday 830am - 800pm. Pt reports will be able [place] get a ride [place] and will come to [facility] one of the next 3 days. Pt agrees with disposition. Insurance is verified as active. Protocol Used: Falls and Falling (Adult) Protocol-Based Disposition: See in Office or Video Visit within 3 Days Positive Triage Question: * Patient wants to be seen * All higher-acuity triage questions were negative Care Advice Discussed: * Reassurance and Education - Direct Blow (Minor Bruise, Contusion) * Use a Cold Pack for Pain, Swelling, or Bruising * Reasons To Call Back - Bruise becomes over 2 inches (5 cm) wide - You become worse. * Telephone Encounter - Mimi Nuñez - 10/30/2024 10:15 AM EDT Symptom: Fall Outcome: Schedule an urgent appointment (within 1 hour) or talk to a nurse or provider soon Reason: Happened within the past 24 hours The caller accepted this outcome. Contact pt at [phone] documented in this encounter Plan of Treatment Not on file documented as of this encounter Visit Diagnoses Not on filedocumented in this encounter Additional Health Concerns Assessment Noted Time PHQ-9 Depression Total Score: 10 08/13/2 025 11:10 AM EST documented as of this encounter Care Teams Chinese Herbalist Relationship Specialty Start Date End Date Britt Hunter MD [address] [place] [address] PCP - General Family Medicine 06/26/18 documented as of this encounter
--- OUTSIDE RECORDS SUMMARY | 2025-04-07 14:07 | XMS_ITS | Encounter Summary ---
Author Organization [employer] Address 75 [facility] 7t [place] [address] Care Team Providers Care Assembler Convertible Top Name Role Phone Britt Hunter MD Primary Care Provider [phone] Encounter Details Date Type Department Care Team (Latest Contact Info) Description 03/19/2021 Abstract [facility] CONVERSIONS Dental, Provider, DDS Social History [...] on filedocumented in this encounter Care Teams Assembler Convertible Top Relationship Specialty Start Date End Date Britt Hunter MD [address] [place] [phone] PCP - General Family Medicine 06/26/18 documented as of this encounter
--- OUTSIDE RECORDS SUMMARY | 2025-04-07 14:07 | XMS_ITS | Encounter Summary ---
Author Organization [employer] Address 75 [facility] 7t [place] [address] Care Team Providers Care Investment Officer Name Role Phone Britt Hunter MD Primary Care Provider [phone] Reason for Visit * Reason Comments Med Refill Encounter Details Date Type Department Care Team ([facility] st Contact Info) Description 04/13/2023 Refill [facility] MEDICINE [address] [place], [place] [phone] Estephania Mike FNP [address] [place] [address] Social History Tobacco Use Types Packs/Day Years [...] on filedocumented in this encounter Care Teams Investment Officer Relationship Specialty Start Date End Date Britt Hunter MD [address] [place] [address] PCP - General Family Medicine 06/26/18 documented as of this encounter
--- OUTSIDE RECORDS SUMMARY | 2025-04-07 14:07 | XMS_ITS | Encounter Summary ---
Author Organization [employer] Address [address] [facility] 7t [place] [address] Care Team Providers Care International Exchange Coordinator Name Role Phone Britt Hunter MD Primary Care Provider Encounter Details Date Type Department Care Team (Latest Contact Info) Description 04/07/2025 Travel Social History Tobacco Use Types Packs/Day [...] documented as of this encounter Care Teams International Exchange Coordinator Relationship Specialty Start Date End Date Britt Hunter MD [address] [place] [address] PCP - General Family Medicine 06/26/18 documented as of this encounter
--- OUTSIDE RECORDS SUMMARY | 2025-04-07 14:07 | XMS_ITS | Encounter Summary ---
Author Organization [employer] Address 75 [facility] 7t [place] [address] Care Team Providers Care Consulting Property Manager Name Role Phone Britt Hunter MD Primary Care Provider Encounter Details Date Type Department Care Team (Latest Contact Info) Description 09/03/[address] [facility] CONVERSIONS Dental, Provider, DDS Social History Tobacco [...] on filedocumented in this encounter Care Teams Consulting Property Manager Relationship Specialty Start Date End Date Britt Hunter MD [address] [place] [phone] PCP - General Family Medicine 06/26/18 documented as of this encounter
--- OUTSIDE RECORDS SUMMARY | 2025-04-07 14:07 | XMS_ITS | Clinical Summary ---
Author Organization [employer] Address [address] [place] [address] 7[address] [place] [address] Care Team Providers Care Supervisor Order Takers Name Role Phone Britt Hunter MD Primary Care Provider [phone] Allergies Active Allergy Reactions Criticality Noted Date [...] at bedtime. 6 mL 1 023 Active venlafaxine (Effexor) 100 MG tablet TAKE 1 TABLET BY MOUTH TWICE DAILY WITH FOOD 180 tablet 024 Active fluticasone (Flonase) 50 MCG/ACT nasal spray INSTILL 2 SPRAYS IN EACH NOSTRIL ONCE DAILY 48 g 024 Active cyanocobalamin (Vitamin B-12) 1000 MCG tablet TAKE 1 TABLET BY MOUTH EVERY DAY 90 tablet 3 024 Active Magnesium 400 MG capsule Take 400 mg by mouth at bedtime. 90 capsule 3 025 Active Magnesium Oxide -Mg Supplement 400 [...] mouth every other day. 90 tablet 3 025 Active fluticasone furoate (Arnuity Ellipta) 100 MCG/ACT inhaler Inhale 1 puff Once per day. Rinse mouth with water after use to reduce aftertaste and incidence of candidiasis. Do not swallow. 1 each 025 2025 Active montelukast (Singulair) 10 MG tablet TAKE 1 TABLET BY MOUTH EVERY DAY IN THE EVENING 90 tablet 3 025 Active nystatin (Mycostatin) creamIndication s:Rash APPLY TO THE AFFECTED AREA(S) TWICE DAILY 30 g 1 025 Active celecoxib (CeleBREX) 200 MG capsuleIndicati ons:Psoriatic arthritis (CMS/HCC) (HCC) TAKE 1 CAPSULE BY MOUTH ONCE DAILY NEEDED 30 capsule 1 025 Active topiramate (Topamax) 100 MG tablet TAKE 1 TABLET BY MOUTH AT BEDTIME 90 tablet 3 025 Active permethrin (Nix Creme Rinse) 1 % liquid Wash hair and towel dry. Apply lotion or cream rinse to saturate the hair and scalp. Leave on hair for 10 min, then rinse off with warm water; remove remaining nits with nit comb. May repeat 7 days. 120 mL 1 025 Active phentermine 37.5 MG capsule TAKE 1 CAPSULE BY MOUTH ONCE DAILY BEFORE BREAKFAST 90 capsule 1 025 Active phentermine 30 MG capsule TAKE 1 CAPSULE BY MOUTH ONCE DAILY BEFORE BREAKFAST 30 capsule 2 025 2024 Discontinued(R eorder (will not trigger [...] (08/16/2024 4:00 PM EST): - following with [facility] -symptoms have improved -anticipating Colonoscopy in September 2024 Assessment & Plan (10/04/2022 2:24 PM EDT): Seen by GI on 09/29/22 -symptoms have improved -anticipating Colonoscopy on 11/04/22 Anxiety disorder 08/10/2018 Bipolar II disorder ([facility]) 08/10/2018 Assessment & Plan (08/16/2024 5:11 PM [...] continue supplement Chronic sinusitis 04/05/2012 Psoriatic arthritis ([facility]/HCC) 04/05/2012 Assessment & Plan (08/13/2024 4:23 PM EST): -Followed by Dr. Saldana at [facility] -Periodic lab per specialist -Continue Enbrel, Methotrexate, and folic acid. -Previously taking Ibuprofen 800mg TID. -Currently on ALVARADO-2 / Celebrex, -She was advised to stop Ibuprofen david she is taking Celebrex, and reviewed its side effect and judicious use -Take Tylenol for pain. Assessment & Plan (06/11/2023 12:23 PM EST): -Followed by Dr. Saldana at [facility] -Periodic lab per specialist -Continue Enbrel, Methotrexate, and folic acid. -Previously taking Ibuprofen 800mg TID. -Currently on ALVARADO-2 / Celebrex, -She was advised to stop Ibuprofen david she is taking Celebrex, and reviewed its side effect and judicious use -Take Tylenol for pain. Assessment & Plan (03/03/2023 2:30 PM EDT): -Followed by Dr. Saldana at [facility], last seen in December 2022, ESR 20 -Periodic lab per specialist -Continue Enbrel, Methotrexate, and folic acid. -Previously taking Ibuprofen 800mg TID. -Currently on ALVARADO-2 / Celebrex, -She was advised to stop Ibuprofen david she is taking Celebrex, and reviewed its side effect and judicious use -Take Tylenol for pain. Assessment & Plan (10/05/2022 6:27 AM EDT): -Followed by Dr. Saldana at [facility] -Periodic lab per specialist -Continue Enbrel, Methotrexate, [...] (08/16/2024 4:01 PM EST): - following with [facility], last seen in December 2023 - continue omeprazole 20 mg bid - previously prescribed sucralfate 10 mg daily, but no longer taking Assessment & Plan (06/11/2023 12:21 PM EST): - following with [facility], last seen in Apr 2023 - [...] with negative high-risk HPV by her previous COMB FIXER Encounters Date Type Department Care Team Description 04/07/2025 1:15 PM EDT Office Visit [facility] [address] [place] [phone] Britt Hunter MD Dizziness (Primary Dx); Vitamin D deficiency; Impaired fasting glucose; Nutritional anemia; Iron deficiency anemia, unspecified iron deficiency anemia type; Encounter for immunization 04/07/2025 Travel 04/04/2025 Telephone [facility] [address] [place] [phone] Britt Hunter MD chartprep 03/31/2025 Patient Outreach [facility] [address] [place] [phone] Britt Hunter MD Care Coordination ([facility] outreach for SDOH PT-1 and food needs-referral completed /) 03/31/2025 Patient Outreach [facility] [address] [place] [address] [phone] Britt Hunetr MD Pre-visit Planning (SDOH screening was completed on 07/29/2024) 03/17/2025 Telephone [facility] [address] [place] [phone] Melanie Peace [place] 03/12/2025 Telephone [facility] [address] [place] [phone] Britt Hunter MD Nurse Triage 03/03/2025 Refill [facility] [address] [place] [address] Britt Hunter MD 02/21/2025 Refill [facility] [address] [place] [phone] Britt Hunter MD 02/12/2025 Refill [facility] [address] [place] [address] Britt Hunter MD Psoriatic arthritis ([facility]) 02/11/2025 Orders Only [facility] [address] [place] [phone] Britt Hunter MD 01/28/2025 Refill [facility] [address] [place] [address] Britt Hunter MD Rash 01/20/2025 Refill [facility] [address] [place] [address] Britt Hunter MD from Last 3 Months Immunizations Immunization Administration Dates Next Due Hep A / [...] 04/05/2012 Influenza, seasonal, injecta ble, preservative free 04/07/2025,08/13/2024 Pneumococcal Conjugate PCV 20 04/07/2025 Pneumococcal Polysaccharide PPSV23 06/28/2012, Pneumococcal, Unspecified 04/23/2007 [...] Mass Index 59.53 04/07/2025 1:15 PM EDT Plan of Treatment Health Maintenance Due Date Last Done Comments CT Colonography 1968 FIT DNA/Cologuard 1970 FIT 1970 FOBT 1970 Sigmoidoscopy 1970 Disability Screening 1970 Colposcopy 09/12/2024 11/11/2015 Depression Monitoring 02/10/2025 08/13/2024, 025 COVID-19 Vaccine ( season) 2025 02/17/2021, 01/27/2021 SDOH Screening 07/29/2025 07/29/2024 Alcohol/Substance Use Screening 08/13/2025 08/13/2024 Cervical Cancer Screening 09/11/2025 HPV/Cotest 09/11/2025 09/11/2024, 050 09/2022, 10/27/2022 Pap Smear 09/11/2025 09/11/2024, 050 09/2022, 04/17/2017, Additional history exists Tobacco Screening 04/07/2026 04/07/2025 Mammogram 02/11/2027 02/11/2025, 0601/2024, 06/14/2022, Additional history exists Colonoscopy 12/18/2027 12/17/2024, 11/09/2022 Colorectal Cancer Screening 12/18/2027 Lipid Panel 09/25/2029 09/25/2024, 040 07/2024, 10/04/2022, Additional history exists DTaP/Tdap/Td Vaccines (3 - [...] 12/31/2015, Additional history exists Influenza Vaccine Completed 04/07/2025, , 05/23/2022, Additional history exists Pneumococcal Vaccine: 50+ Years Completed 04/07/2025, 06/28/2012, 04/23/2007, Additional history exists HIB Vaccines Aged Out No longer eligi ble based on patient's age to complete this topic HPV Vaccines Aged Out No longer eligi ble based on patient's age to complete this topic IPV Vaccines Aged Out No longer eligi ble based on patient's age to complete this topic Meningococcal B Vaccine Aged Out No l onger eligible based on patient's age to complete [...] Comments BI MAMMOGRAM SCREENING TOMOSYNTHESIS BILATERAL Routine 02/11/2025 1:20 PM EDT HM COLONOSCOPY Routine 12/17/2024 2:03 PM EDT LIPID PANEL WITH REFLEX TO DIRECT LDL Routine 09/25/2024 11:47 AM EDT Class 3 severe obesity due to excess calories with serious comorbidity and body mass index (BMI) of 60.0 to 69.9 in adult HPV DNA, LOW/HIGH RISK Routine 09/11/2024 11:08 AM EDT PAP SMEAR Routine 09/11/2024 11:08 AM EDT Cervical high risk human papillomavirus (HPV) DNA test positive [facility] HISTORICAL HEPATITIS C AB W/REFL TO HCV RNA, QN, PCR Routine 01/08/2020 11:33 AM EDT HIV 1/2 ANTIGEN/ANTIBODY, FOURTH GENERATION W/RFL Routine 01/08/2020 11:33 AM EDT COLPOSCOPY Routine 11/11/2015 12:00 AM EDT from Last 3 Months or Most Recently Relevant to Health Maintenance Results * BI Mammogram Screening Tomosynthesis Bilateral (02/11/2025 1:20 PM EDT) Anatomical Region Laterality Modality Breast Bilateral Mammography 02/11/2025 1:20 PM EDT Narrative 02/13/2025 11:23 AM EDT [facility] [address] [place] [address] Mammography Report Signed Patient: Corine Ortega MR#: [id number] 9 : 1970 Acct:[id number] Age/Sex: 54 / F ADM Date: 02/11/25 Loc: HO.MAMMO Attending Dr: Britt Hunter MD Ordering Physician: Britt Hunter MD Results: 1Negative Date of Service: 02/11/25 Follow Up: 1 Year From Orig inal Mammogram Procedure(s): MM tomosynthesis screening BI Accession Number(s): [id number] cc: Britt Hunter MD EXAMINATION: MM SCREENING DIGITAL BREAST TOMOSYNTHESIS, BILATERAL CLINICAL INFORMATION: Screening. Asymptomatic. COMPARISON: Mammography: Comparison is made with available priors TECHNIQUE: Digital breast mammography with tomosynthesis is performed in both the craniocaudal and mediolateral oblique views along with computer-aided detection (CAD). FINDINGS: The breasts are almost entirely fatty [...] target due date for their next mammogram. Electronically signed by: Carissa Ayala DO 02/13/2025 11:20 AM EDT Dictated By: Carissa Ayala DO Signed By: <Electronically signed by Carissa Aayla DO in OV> 02/13/25 1120 DD/ 1320 TD/TT: 02/11/25 1345 Comic Book Designer: Procedure Note Donotuseinterpreter, Image - 02/13/2025 [facility] [address] [place] [address] Mammography Report Signed Patient: Corine Ortega MMR#: [id number] 9 : 1970Acct:[id number] Age/Sex: 54 / FADM Date: 02/11/25 Loc: HO.MAMMO Attending Dr: Britt Hunter MD Ordering Physician: Britt Hunter MDResults: 1Negative Date of Service: 02/11/25Follow Up: 1 Year From Orig inal Mammogram Procedure(s): MM tomosynthesis screening BI Accession Number(s): [id number] cc: Britt Hunter MD EXAMINATION: MM SCREENING DIGITAL BREAST TOMOSYNTHESIS, BILATERAL CLINICAL INFORMATION: Screening. Asymptomatic. COMPARISON: Mammography: Comparison is made with available priors TECHNIQUE: Digital breast mammography with tomosynthesis is performed in both the craniocaudal and mediolateral oblique views along with computer-aided detection (CAD). FINDINGS: The breasts are almost entirely fatty [...] target due date for their next mammogram. Electronically signed by: Carissa Ayala DO 02/13/2025 11:20 AM EDT Dictated By: Carissa Ayala DO Signed By: <Electronically signed by Carissa Ayala DO in OV> 02/13/25 1120 DD/ 1320 TD/TT: 02/11/25 1345 Comic Book Designer: us Britt Hunter MD IMG BI PROCEDURES Final Result * (ABNORMAL) Hm Colonoscopy (12/17/2024 2:03 PM EDT) Colonoscopy Abnormal( A) Normal Comment:Tubular adenoma next colonoscopy 3-5year us Carmela Provider HEALTH MAINTENANCE Final Result * Lipid Panel with Reflex to Direct LDL (09/25/2024 11:47 AM EDT) Triglycerides 105 <150 mg/dL [facility] Comment:Desirable Triglyceri de: less than 150 mg/dLBorderline High Triglyceride 150-199 mg/dLHigh Triglyceride: 200-499 mg/dLVery High Triglyceride: greater than or equal to 5OO mg/dL Cholesterol 167 <200 mg/dL [facility] Comment:Desirable Cholestero l: less than 200 mg/dLBorderline High Cholesterol: 200-239 mg/dLHigh Cholesterol: greater than 239 mg/dL LDL Cholesterol Calculated 92 <100 mg/dL [facility] Comment:Desirable LDL: less than 100 mg/dLNear Optimal/Above Optimal LDL: 110- 129 mg/dLBorderline High LDL: 130-159 mg/dLHigh LDL: 160-189 mg/dLVery High LDL: greater than or equal to 190 mg/dL HDL Cholesterol 54 >40 mg/dL [facility] Comment:Desirable HDL: great er than 40 mg/dL Note: This HDL assay may give artificially low results in patients with liver disease. Blood 09/25/2024 11:4 7 AM EDT 09/25/2024 1:12 PM EDT us Britt Hunter MD LAB BLOOD ORDERABLES Final Resul t [facility] [address] [place] [phone] * (ABNORMAL) HPV DNA, Low/High Risk (09/11/2024 11:08 AM EDT) HPV High Risk Negative Negative [facility] HPV Genotype 16 Positive(A) Negative [facility] HPV Genotype 18 Negative Negative [facility] Comment:HPV testing performe d at [facility] (CLIA#[id number]), [address] [place] [phone].Testing for HPV was performed using the Ulises [...] CNM LAB BLOOD ORDERABLES Bibi l Result [facility] [address] [place] [phone] * Pap Smear (09/11/2024 11:08 AM EDT) Swab Cervix uteri structure / Unknown 09/11/2024 11:08 AM EDT 09/12/2024 6:00 AM EDT Narrative [facility] - 09/19/2024 10:08 AM EDT ----- ------- Name: Corine Ortega Age/Sex: 53/F : 1970 Unit#: [id number] Attend Dr: MO RIVERS CNM Re09/11/24 Status: DEP REF Location: [facility] Disch: ----- ------- SPEC : [id number] RECD: 09/12/24 STATUS: SORIN DOLAN NUM: [id number] BANDAR: 09/11/[address]: MO RIVERS CNM ENTERED: 09/12/24 SP TYPE: Pap Smr OTHR DR: ORDERED: Pap Smear, PAP path review Interpretation ABNORMAL PAP TEST. Satisfactory for evaluation, with atypical squamous cells of undetermined significance (ASC-US). Mild inflammation. HPV High Risk: Negative HPV Genotyping 16: Positive HPV Genotyping 18: Negative Clinical Information LMP:Post menopausal Previous PAP test: NIL/HPV pos, neg 16/18 in 2022 Material Received Cervix ----- ------- Signed (signature on file) Lupe Higuera MD 09/19/24 1008 ----- ------- END OF REPORT us Mo Rivers [facility] CYTOLOGY ORDERABLES F inal Result [facility] [address] [place] [phone] * HEPATITIS C AB W/REFL TO HCV RNA, QN, PCR (01/08/2020 11:33 AM EDT) HEPATITIS C ANTIBODY NON-REACT SAI NON-REACT SAI [facility] INDEX 0.01 <1.00 [facility] Comment: HCV antibody was non-reactive. There is no laboratory evidence of HCV infection. In most cases, no further action is required. However, if recent HCV exposure is suspected, a test for HCV RNA (test code 63380) is suggested. For additional information please refer to http://EverCharge/faq/DDZ32n9 (This link is being provided for informational/ educational purposes only.) HEPATITIS C ANTIBODY NON-REACT SAI NON-REACT SAI [facility] INDEX 0.01 <1.00 [facility] Comment: HCV antibody was non-reactive. There is no laboratory evidence of HCV infection. In most cases, no further action is required. However, if recent HCV exposure is suspected, a test for HCV RNA (test code 62496) is suggested. For additional information please refer to http://EverCharge/faq/UXW75g7 (This link is being provided for informational/ educational purposes only.) HEPATITIS C ANTIBODY NON-REACT SAI NON-REACT SAI [facility] INDEX 0.01 <1.00 [facility] Comment: HCV antibody was non-reactive. There is no laboratory evidence of HCV infection. In most cases, no further action is required. However, if recent HCV exposure is suspected, a test for HCV RNA (test code 50834) is suggested. For additional information please refer to http://EverCharge/faq/ZQR59u2 (This link is being provided for informational/ educational purposes only.) 01/08/2020 11:3 3 AM EDT us Britt Hunter MD HISTORICAL/NON ORDERABLE LABS Fi nal Result [facility] [address] * HIV 1/2 ANTIGEN/ANTIBODY,FOURTH GENERATION W/RFL (01/08/2020 11:33 AM EDT) HIV-1/2 ANTIGEN AND ANTIBODIES, 4TH GENERATION W/ REFLEX NON-REACT SAI NON-REACT [facility] Comment: HIV-1 antigen and HIV-1/HIV-2 antibodies were not detected. There is no laboratory evidence of HIV infection. PLEASE NOTE: This information has been disclosed to you from records whose confidentiality may be protected by state law. If your state requires such protection, then the state law prohibits you from making any further disclosure of the information without the specific written consent of the person to whom it pertains, or as otherwise permitted by law. A general authorization for the release of medical or other information is NOT sufficient for this purpose. For additional information please refer to http://Cater to u.eFolder/faq/TZZ317 (This link is being provided for informational/ educational purposes only.) The performance of this assay has not been clinically validated in patients less than 2 years old. HIV-1/2 ANTIGEN AND ANTIBODIES, 4TH GENERATION W/ REFLEX NON-REACT ASI NON-REACT [facility] Comment: HIV-1 antigen and HIV-1/HIV-2 antibodies were not detected. There is no laboratory evidence of HIV infection. PLEASE NOTE: This information has been disclosed to you from records whose confidentiality may be protected by state law. If your state requires such protection, then the state law prohibits you from making any further disclosure of the information without the specific written consent of the person to whom it pertains, or as otherwise permitted by law. A general authorization for the release of medical or other information is NOT sufficient for this purpose. For additional information please refer to http://Cater to u.eFolder/faq/AEN749 (This link is being provided for informational/ educational purposes only.) The performance of this assay has not been clinically validated in patients less than 2 years old. HIV-1/2 ANTIGEN AND ANTIBODIES, 4TH GENERATION W/ REFLEX NON-REACT SAI NON-REACT [facility] Comment: HIV-1 antigen and HIV-1/HIV-2 antibodies were not detected. There is no laboratory evidence of HIV infection. PLEASE NOTE: This information has been disclosed to you from records whose confidentiality may be protected by state law. If your state requires such protection, then the state law prohibits you from making any further disclosure of the information without the specific written consent of the person to whom it pertains, or as otherwise permitted by law. A general authorization for the release of medical or other information is NOT sufficient for this purpose. For additional information please refer to http://education.eFolder/faq/GDL344 (This link is being provided for informational/ educational purposes only.) The performance of this assay has not been clinically validated in patients less than 2 years old. 01/08/2020 11:3 3 AM EDT us Britt Hunter MD LAB BLOOD ORDERABLES Final Resul t Performing Organization Address [facility] Co de Phone Number [facility] [address] * Colposcopy (11/11/2015 12:00 AM EDT) us Historical Provider MD IN CLINIC/BEDSIDE ORDERAB LES Final Result Performing Organization Address [place]/[facility] Co de Phone Number EXTERNAL LAB from Last 3 Months or Most Recently Relevant to Health Maintenance Insurance [facility] ST[employer] MEDICARE Care Teams Supervisor Order Takers Relationship Specialty Start Date End Date Britt Hunter MD [address] [place] [phone] PCP - General Family Medicine 06/26/18
--- OUTSIDE RECORDS SUMMARY | 2025-04-07 14:07 | XMS_ITS | Encounter Summary ---
Author Organization [email or web address] Address [address] [facility] [address] [place] [address] Care Team Providers Care Offshore Wind Operations Manager Name Role Phone Britt Hunter MD Primary Care Provider [phone] Reason for Visit * Reason Comments Med Refill Encounter Details Date Type Department Care Team ([facility] st Contact Info) Description 08/04/2023 Refill [facility] [address] [place], [place] [phone] Britt Hunter MD [address] [place], [place] [phone] Psoriatic arthritis (CMS/HCC) Social History Tobacco Use [...] encounter Visit Diagnoses Diagnosis Psoriatic arthritis (CMS/HCC) (HCC) Psoriatic arthropathy documented in this encounter Additional Health Concerns Assessment Noted Time PHQ-9 Depression Total Score: 5 06/05/20 23 1:12 PM EST documented as of this encounter Care Teams Offshore Wind Operations Manager Relationship Specialty Start Date End Date Britt Hunter MD [address] [place] [phone] PCP - General Family Medicine 06/26/18 documented as of this encounter
[2025-04-07 16:01] LABS: MANUAL DIFF FLAG NO
[2025-04-07 16:21] LABS: Hematocrit 41.5 % (37.0-47.0); Hemoglobin 13.8 g/dl (12.0-16.0); Imm Gran Abs Auto 0.01 X10*3/uL (0.00-0.03); Imm Gran Pct Auto 0.2 % (0.0-0.4); Lymphocytes Absolute Auto 2.1 X10*3/uL (1.2-4.9); Mean Corpuscular HGB Conc 33.3 g/dl (31.0-35.0); Mean Corpuscular Hemoglobin 35.9 pg (27.0-33.0); Mean Corpuscular Volume 108.1 fL (80.0-98.0); NRBC Abs Auto 0.000 X10*3/uL (0.0-0.012); NRBC Pct Auto 0.0 /100WBC (0.0-0.2); Platelet Count 207 X10*3/uL (160-400); Red Blood Count 3.84 X10*6/uL (4.20-5.50); Reticulocytes Absolute 0.090 X10*6/uL (0.026-0.095); White Blood Count 6.2 X10*3/uL (4.8-10.8)
[2025-04-07 16:39] LABS: Iron 127 mcg/dL (30-160); Percent Iron Saturation 60 % (15-50); Total Iron Binding Capacity 212 mcg/dL (228-428); Unsaturated Iron Binding 85 ug/dL
[2025-04-07 17:01] LABS: Folate > 20.0 ng/mL (> or = 4.0); Vitamin B12 1423 pg/mL (200-900)
[2025-04-07 17:01] LABS: Ferritin 1155 ng/mL (10-250)
== END 2025-04-07 14:04 | disposition home or self-care (01) ==
LOC: HO.HHCL 14:03
PROVIDERS: PCP Family Medicine; Visit Provider Family Medicine
DX: R42 Dizziness and giddiness (principal); D50.9 Iron deficiency anemia, unspecified; D53.9 Nutritional anemia, unspecified
CPT/HCPCS: 36415; 82607; 82728; 82746; 83540; 84443; 85025; 85045